=== PATIENT | female | born 1940 | race Caucasian/White ===

== ENCOUNTER 2019-02-03 12:54 | Emergency (ER) | payer OTHER, MEDICARE ==
[2019-02-03 14:59] LABS: Absolute Lymphocytes (CBC) 0.7 K/uL (0.7-4.9); Absolute Monocytes 1.1 K/uL (0.1-1.3); Absolute Neutrophil 13.9 K/uL (1.8-8.0); Basophils % 0.5 % (0-1.3); Eosinophils % 0.9 % (0-4.4); Hematocrit 39.2 % (36.0-45.0); Lymphocytes % 4.5 % (15.3-44.8); MPV 10.3 fL (7.6-11.3); Monocytes % 7.1 % (3.3-12.3); RBC Red Blood Cell Count 4.37 M/uL (3.86-4.86)
[2019-02-03 15:18] LABS: Albumin 3.5 g/dL (3.4-5.0); Bilirubin Direct 0.2 mg/dL (0-0.2); Bilirubin Total 0.7 mg/dL (0.2-1.0); Potassium 3.9 mmol/L (3.5-5.1)
[2019-02-03 15:22] LABS: Blood Morphology Comment NOT SEEN (NOT SEEN); Platelet Estimate ADEQ; Urine White Blood Cell Casts OK
[2019-02-03] MEDS ORDERED: CIPROFLOXACIN HCL 500 MG TAB ONE (15:44)
[2019-02-03] MEDS ORDERED: ONDANSETRON 4 MG/2 ML VIAL ONE (15:44)
[2019-02-03] MEDS ORDERED: metroNIDAZOLE 500 MG TABLET ONE (15:44)
--- NOTE | 2019-02-03 16:15 | RAD REPORT ---
EXAM DESCRIPTION: CT - Abdomen Pelvis W Contrast - 02/03/2019 3:56 pm CLINICAL HISTORY: Abdominal pain hematochezia COMPARISON: December 2017 TECHNIQUE: Computed axial tomography of the abdomen pelvis was obtained. 100 cc Isovue-300 was admin istered intravenously. Oral contrast was not requested which limits evaluation of bowel. All CT scans are performed using dose optimization technique as appropriate and may include automated exposure control or mA/KV adjustment according to patient size. FINDINGS: Small left pleural effusion The liver, spleen, adrenal and kidneys appear unremarkable. The pancreas is atrophic. Gallstones without gallbladder wall thickening Postsurgical changes of a sigmoidectomy with left lower quadrant colostomy. The wall of the distal tr ansverse and descending colon is moderately thickened. This extends to the stoma. Mild stranding is s een within the adjacent fat. Pneumatosis intestinalis is not noted. The appendix is normal. Laxity of the anterior abdominal wall. Diverticulosis involves the colon without diverticulitis IMPRESSION: Moderate left colitis
--- NOTE | 2019-02-03 17:07 | EDPHYS ---
Physician Documentation [facility] Name: Maritza Simon Age: 78 yrs Sex: Female : 1940 Arrival Date: 02/03/2019 Time: 12:57 Bed 30 Private MD: James Lew F ED Physician Ho Glasgow HPI: 02/03 17:01 This 78 yrs old Female presents to ER via Wheelchair with complaints of kdr Diarrhea, Bloody Stools. 17:01 The patient presents to the emergency department with nausea, that is mild, diarrhea, kdr that is intermittent, 3 times today, abdominal pain, of the abdomen diffusely, described as achy, crampy, and does not radiate. Onset: The symptoms/episode began/occurred suddenly, this morning. Possible causes: unknown, antibiotics. The symptoms are aggravated by nothing. The symptoms are alleviated by nothing. Associated signs and symptoms: Pertinent positives: abdominal pain, diarrhea, nausea. Severity of symptoms: At their worst the symptoms were mild moderate just prior to arrival, in the emergency department the symptoms are unchanged. The patient has not experienced similar symptoms in the past. The patient has not recently seen a physician. Historical: - Allergies: 13:16 NKA; hb - Home Meds: 14:53 Advair Diskus 250-50 mcg/dose Inhl dsdv 1 puff 2 times per day [Active]; amitriptyline mg2 25 mg Oral tab 1 tab once daily [Active]; atenolol 25 mg Oral tab 1 tab 2 times per day [Active]; azithromycin 500 mg Oral tab 1 tab once daily [Active]; calcium 600 mg daily [Active]; cetirizine 10 mg Oral tab [Active]; fluoxetine 20 mg Oral cap 1 cap once daily [Active]; furosemide 40 mg Oral tab 1 tab once daily [Active]; Maalox Plus Extra Strength Oral [Active]; multivitamin Oral cap daily [Active]; omeprazole 20 mg Oral cpDR 2 caps 2 times per day [Active]; ProAir HFA 90 mcg/actuation inhalation HFAA as needed [Active]; rifampin 300 mg Oral cap 2 caps 2 times per day [Active]; simvastatin 10 mg Oral tab 1 tab once daily [Active]; Spiriva with HandiHaler 18 mcg inhalation CpDv 1 cap once daily [Active]; spironolactone 25 mg Oral tab 1 tab once daily [Active]; tramadol 50 mg Oral tab 1 tab every 6 hours [Active]; Zofran (as hydrochloride) 4 mg Oral tab 1 tabs every 6 hours [Active]; - PMHx: 14:53 BOWEL PERFORATION; CHF; chronic uti; COPD; GALLSTONES; GERD; Hyperlipidemia; mg2 Hypertension; - PSHx: 14:53 Colostomy; mg2 - Immunization history:: Adult Immunizations up to date. - Social history:: Smoking status: Patient/guardian denies using tobacco. - Ebola Screening: : No symptoms or risks identified at this time. ROS: 17:01 Constitutional: Negative for fever, chills, and weight loss, Eyes: Negative for injury, kdr pain, redness, and discharge, ENT: Negative for injury, pain, and discharge, Neck: Negative for injury, pain, and swelling, Cardiovascular: Negative for chest pain, palpitations, and edema, Respiratory: Negative for shortness of breath, cough, wheezing, and pleuritic chest pain, Back: Negative for injury and pain, : Negative for injury, bleeding, discharge, and swelling, MS/Extremity: Negative for injury and deformity, Skin: Negative for injury, rash, and discoloration, Neuro: Negative for headache, weakness, numbness, tingling, and seizure activity. Psych: Negative for depression, anxiety, suicide ideation, homicidal ideation, and hallucinations, Allergy/Immunology: Negative for hives, rash, and allergies, Endocrine: Negative for neck swelling, polydipsia, polyuria, polyphagia, and marked weight changes, Hematologic/Lymphatic: Negative for swollen nodes, abnormal bleeding, and unusual bruising. 17:01 Abdomen/GI: Positive for abdominal pain, diarrhea, abdominal cramps, rectal bleeding. Exam: 17:01 Constitutional: This is a well developed, well nourished patient who is awake, alert, kdr and in no acute distress. Head/Face: Normocephalic, atraumatic. Eyes: Pupils equal round and reactive to light, extra-ocular motions intact. Lids and lashes normal. Conjunctiva and sclera are non-icteric and not injected. Cornea within normal limits. Periorbital areas with no swelling, redness, or edema. Neck: Trachea midline, no thyromegaly or masses palpated, and no cervical lymphadenopathy. Supple, full range of motion without nuchal rigidity, or vertebral point tenderness. No Meningismus. Chest/axilla: Normal chest wall appearance and motion. Nontender with no deformity. No lesions are appreciated. Cardiovascular: Regular rate and rhythm with a normal S1 and S2. No gallops, murmurs, or rubs. Normal PMI, no JVD. No pulse deficits. Respiratory: Lungs have equal breath sounds bilaterally, clear to auscultation and percussion. No rales, rhonchi or wheezes noted. No increased work of breathing, no retractions or nasal flaring. Back: No spinal tenderness. No costovertebral tenderness. Full range of motion. Skin: Warm, dry with normal turgor. Normal color with no rashes, no lesions, and no evidence of cellulitis. MS/ Extremity: Pulses equal, no cyanosis. Neurovascular intact. Full, normal range of motion. Neuro: Awake and alert, GCS 15, oriented to person, place, time, and situation. Cranial nerves II-XII grossly intact. Motor strength 5/5 in all extremities. Sensory grossly intact. Cerebellar exam normal. Normal gait. Psych: Awake, alert, with orientation to person, place and time. Behavior, mood, and affect are within normal limits. 17:01 Abdomen/GI: Rectal exam: Stool: Stoma Exam appears normal with some mildly bloody drainage. Vital Signs: 13:15 BP 116 / 68; Pulse 88; Resp 18; Temp 97.2; Pulse Ox 99% on 2 lpm NC; Pain 0/10; hb 14:28 BP 109 / 58; Pulse 74; Resp 18; Pulse Ox 98% on 2 lpm NC; tl3 14:54 BP 123 / 65; Pulse 64; Resp 18; Pulse Ox 100% on 2 lpm NC; mg2 17:45 BP 129 / 78; Pulse 70; Resp 18; Pulse Ox 100% on 2 lpm NC; Pain 0/10; mg2 MDM: 17:01 Data reviewed: vital signs, nurses notes, lab test result(s), radiologic studies. kdr Counseling: I had a detailed discussion with the patient and/or guardian regarding: the historical points, exam findings, and any diagnostic results supporting the discharge/admit diagnosis, lab results, radiology results, the need for outpatient follow up. 17:06 Patient medically screened. [facility] 02/03 14:26 Order name: Basic Metabolic Panel [facility] 02/03 14:26 Order name: CBC with Diff; Complete Time: 15:23 kdr 02/03 14:26 Order name: Creatinine for Radiology; Complete Time: 16:57 kdr 02/03 14:26 Order name: Hepatic Function; Complete Time: 15:23 kdr 02/03 14:26 Order name: Lipase; Complete Time: 15:23 kdr 02/03 14:27 Order name: Basic Metabolic Panel; Complete Time: 15:23 EDAL 02/03 15:03 Order name: CBC Smear Scan; Complete Time: 15:23 EDMS 02/03 15:23 Order name: CT Abd/Pelvis - W/Contrast; Complete Time: 16:57 kdr 02/03 15:25 Order name: Stool Culture [facility] 02/03 15:25 Order name: Ova And Parasites kdr 02/03 15:25 Order name: Fecal Leukocyte Stain kdr 02/03 15:25 Order name: CDIFF kdr 02/03 14:26 Order name: IV Saline Lock; Complete Time: 14:48 [facility] 02/03 14:26 Order name: Labs collected and sent; Complete Time: 14:48 kdr Administered Medications: 15:41 Drug: Flagyl 500 mg Route: PO; mg2 17:48 Follow up: Response: No adverse reaction mg2 15:41 Drug: Cipro 500 mg Route: PO; mg2 17:49 Follow up: Response: No adverse reaction mg2 15:41 Drug: Zofran 4 mg Route: IVP; Site: right forearm; mg2 17:48 Follow up: Response: No adverse reaction; Marked relief of symptoms mg2 17:48 Follow up: Response: No adverse reaction mg2 Disposition: 02/03/19 17:06 Discharged to Home. Impression: Left sided colitis, Left sided colitis without complications. - Condition is Stable. - Discharge Instructions: Colitis. - Prescriptions for Flagyl 500 mg Oral Tablet - take 1 tablet by ORAL route every 6 hours for 10 days; 40 tablet. Zofran 4 mg Oral Tablet - take 1 tablet by ORAL route every 12 hours As needed; 20 tablet. Cipro 500 mg Oral Tablet - take 1 tablet by ORAL route every 12 hours for 10 days; 20 tablet. Pepcid 20 mg Oral Tablet - take 1 tablet by ORAL route every 12 hours for 10 days; 20 tablet. - Medication Reconciliation Form, Thank You Letter, Antibiotic Education, Prescription Opioid Use form. - Follow up: James Lew MD; When: 2 - 3 days; Reason: If symptoms return, Further diagnostic work-up, Recheck today's complaints, Continuance of care, Re-evaluation by your physician. Signatures: Dispatcher [employer] EDAL Ho Glasgow MD MD [facility] Denisse Loyd RN RN Jose Ramirez RN RN mg2 Corrections: (The following items were deleted from the chart) 17:50 17:06 02/03/2019 17:06 Discharged to Home. Impression: Left sided colitis; Left sided mg2 colitis without complications. Condition is Stable. Forms are Medication Reconciliation Form, Thank You Letter, Antibiotic Education, Prescription Opioid Use. Follow up: James Lew; When: 2 - 3 days; Reason: If symptoms return, Further diagnostic work-up, Recheck today's complaints, Continuance of care, Re-evaluation by your physician. kdr
--- NOTE | 2019-02-03 17:07 | ER ---
Nurse's Notes [facility] Name: Maritza Simon Age: 78 yrs Sex: Female : 1940 Arrival Date: 02/03/2019 Time: 12:57 Bed 30 Private MD: James Lew F Diagnosis: Left sided colitis;Left sided colitis without complications Presentation: 02/03 13:15 Presenting complaint: Upper abdominal pain, nausea, and bloody diarrhea in colostomy hb bag since this morning. Transition of care: patient was not received from another setting of care. Onset of symptoms was February 03, 2019. Risk Assessment: Do you want to hurt yourself or someone else? Patient reports no desire to harm self or others. Care prior to arrival: None. 13:15 Method Of Arrival: Wheelchair hb 13:15 Acuity: TRACY 3 hb 14:54 Initial Sepsis Screen: Does the patient meet any 2 criteria? No. Patient's initial mg2 sepsis screen is negative. Does the patient have a suspected source of infection? No. Patient's initial sepsis screen is negative. Historical: - Allergies: 13:16 NKA; hb - Home Meds: 14:53 Advair Diskus 250-50 mcg/dose Inhl dsdv 1 puff 2 times per day [Active]; amitriptyline mg2 25 mg Oral tab 1 tab once daily [Active]; atenolol 25 mg Oral tab 1 tab 2 times per day [Active]; azithromycin 500 mg Oral tab 1 tab once daily [Active]; calcium 600 mg daily [Active]; cetirizine 10 mg Oral tab [Active]; fluoxetine 20 mg Oral cap 1 cap once daily [Active]; furosemide 40 mg Oral tab 1 tab once daily [Active]; Maalox Plus Extra Strength Oral [Active]; multivitamin Oral cap daily [Active]; omeprazole 20 mg Oral cpDR 2 caps 2 times per day [Active]; ProAir HFA 90 mcg/actuation inhalation HFAA as needed [Active]; rifampin 300 mg Oral cap 2 caps 2 times per day [Active]; simvastatin 10 mg Oral tab 1 tab once daily [Active]; Spiriva with HandiHaler 18 mcg inhalation CpDv 1 cap once daily [Active]; spironolactone 25 mg Oral tab 1 tab once daily [Active]; tramadol 50 mg Oral tab 1 tab every 6 hours [Active]; Zofran (as hydrochloride) 4 mg Oral tab 1 tabs every 6 hours [Active]; - PMHx: 14:53 BOWEL PERFORATION; CHF; chronic uti; COPD; GALLSTONES; GERD; Hyperlipidemia; mg2 Hypertension; - PSHx: 14:53 Colostomy; mg2 - Immunization history:: Adult Immunizations up to date. - Social history:: Smoking status: Patient/guardian denies using tobacco. - Ebola Screening: : No symptoms or risks identified at this time. Screenin:28 Abuse screen: Denies threats or abuse. Nutritional screening: No deficits noted. tl3 Tuberculosis screening: No symptoms or risk factors identified. Fall Risk None identified. Assessment: 14:28 General: Appears in no apparent distress. well groomed, well developed, well nourished, tl3 Behavior is calm, cooperative, appropriate for age. Pain: Complains of pain in abdomen Quality of pain is described as crampy. Neuro: No deficits noted. Level of Consciousness is awake, alert, obeys commands, Oriented to person, place, time, situation, Appropriate for age. Cardiovascular: Patient's skin is warm and dry. Respiratory: Airway is patent Respiratory effort is even, unlabored, Respiratory pattern is regular, symmetrical. GI: Reports diarrhea, stool has become watery with blood tinges. Pt has colostomy and stool was normal yesterday. : No signs and/or symptoms were reported regarding the genitourinary system. EENT: No signs and/or symptoms were reported regarding the EENT system. Derm: No signs and/or symptoms reported regarding the dermatologic system. Musculoskeletal: No signs and/or symptoms reported regarding the musculoskeletal system. 14:28 Respiratory: pt on home O2 at 2 LPM per NC. tl3 17:48 Reassessment: Patient states feeling better. mg2 Vital Signs: 13:15 BP 116 / 68; Pulse 88; Resp 18; Temp 97.2; Pulse Ox 99% on 2 lpm NC; Pain 0/10; hb 14:28 BP 109 / 58; Pulse 74; Resp 18; Pulse Ox 98% on 2 lpm NC; tl3 14:54 BP 123 / 65; Pulse 64; Resp 18; Pulse Ox 100% on 2 lpm NC; mg2 17:45 BP 129 / 78; Pulse 70; Resp 18; Pulse Ox 100% on 2 lpm NC; Pain 0/10; mg2 ED Course: 12:57 Patient arrived in ED. rg4 12:57 James Lew MD is Private Physician. rg4 13:15 Triage completed. hb 13:16 Arm band placed on. hb 14:26 Ho Glasgow MD is Attending Physician. kdr 14:27 Benita Cunningham, RN is Primary Nurse. tl3 14:28 Patient has correct armband on for positive identification. Bed in low position. Call tl3 light in reach. Side rails up X 1. Adult w/ patient. Pulse ox on. NIBP on. 14:28 No provider procedures requiring assistance completed. tl3 14:50 Inserted saline lock: 20 gauge in right forearm, using aseptic technique. Blood mg2 collected. 15:47 CT completed. Patient tolerated procedure well. Patient moved to CT via stretcher. Patient moved back from CT. 16:06 CT Abd/Pelvis - W/Contrast In Process Unspecified. EDMS 17:05 James Lew MD is Referral Physician. kdr 17:50 IV discontinued, intact, bleeding controlled, No redness/swelling at site. Pressure mg2 dressing applied. Administered Medications: 15:41 Drug: Flagyl 500 mg Route: PO; mg2 17:48 Follow up: Response: No adverse reaction mg2 15:41 Drug: Cipro 500 mg Route: PO; mg2 17:49 Follow up: Response: No adverse reaction mg2 15:41 Drug: Zofran 4 mg Route: IVP; Site: right forearm; mg2 17:48 Follow up: Response: No adverse reaction; Marked relief of symptoms mg2 17:48 Follow up: Response: No adverse reaction mg2 Outcome: 17:06 Discharge ordered by . kdr 17:49 Discharged to home via wheelchair, with family. mg2 17:49 Condition: stable 17:49 Discharge instructions given to patient, family, Instructed on discharge instructions, follow up and referral plans. medication usage, Demonstrated understanding of instructions, follow-up care, medications, Prescriptions given X 4. 17:50 Patient left the ED. mg2 Signatures: Dispatcher [employer] EDMS Ho Glasgow MD MD kdr Deepa Velásquez Denisse Loyd RN RN Anastasia Tavarez rg4 Benita Cunningham, TRANG COSTELLO tl3 Gardose, Jose, RN RN mg2 Corrections: (The following items were deleted from the chart) 17:50 14:54 BP 123 / 65; Pulse 64bpm; Resp 18bpm; Pulse Ox 100% RA; mg2 mg2
[2019-02-03 19:04] VITALS: TEMP 97.2
[2019-02-03 19:07] VITALS: O2SAT 100
[2019-02-03 19:08] VITALS: BP 129/78
== END 2019-02-03 17:50 | disposition home or self-care (01) ==
LOC: ER 12:54
DX: K51.50 Left sided colitis without complications (principal); I10 Essential (primary) hypertension; E78.5 Hyperlipidemia, unspecified; I50.9 Heart failure, unspecified; J44.9 Chronic obstructive pulmonary disease, unspecified
CPT/HCPCS: 87045; 85025; 80048; 36415; 89055; 87177; 80076; 87046; 87493; 87209; 83690; 74177; 96374; 99284; Q9967; J2405

== ENCOUNTER 2019-03-02 15:36 | Inpatient (IN) | payer OTHER, MEDICARE ==
[2019-03-02] MEDS ORDERED: METHYLPREDNISOLONE 125 MG INJ ONE (15:48)
[2019-03-02] MEDS ORDERED: IPRATROPIUM BROM 0.5MG/2.5ML ONE (15:49)
[2019-03-02] MEDS ORDERED: ALBUTEROL 2.5 MG/3 ML NEB SOL ONE (15:49)
[2019-03-02 16:10] LABS: Arterial Blood Carboxyhemoglob 0.7 % (0-1.5); Blood Gas Oxyhemoglobin 97.4 % (94-97); Blood O2 Saturation 99.2 % (92-98.5)
--- NOTE | 2019-03-02 16:15 | RAD REPORT ---
EXAM DESCRIPTION: [place] Single View03/02/2019 3:55 pm CLINICAL HISTORY: sob COMPARISON: 02/03/2019 FINDINGS: Mild bilateral pulmonary opacities. Mild left lower lobe atelectasis Small left pleural effusion Moderate cardiomegaly IMPRESSION: These findings probably represent CHF
[2019-03-02 16:16] LABS: Absolute Lymphocytes (CBC) 0.5 K/uL (0.7-4.9); Absolute Monocytes 0.3 K/uL (0.1-1.3); Absolute Neutrophil 9.1 K/uL (1.8-8.0); Basophils % 0.2 % (0-1.3); Eosinophils % 0.1 % (0-4.4); Hematocrit 40.4 % (36.0-45.0); Lymphocytes % 5.3 % (15.3-44.8); MPV 11.1 fL (7.6-11.3); Monocytes % 3.2 % (3.3-12.3); RBC Red Blood Cell Count 4.47 M/uL (3.86-4.86)
[2019-03-02 16:20] LABS: Protime INR 0.99
[2019-03-02 16:32] LABS: Albumin 3.6 g/dL (3.4-5.0); Bilirubin Direct 0.1 mg/dL (0-0.2); Bilirubin Total 0.4 mg/dL (0.2-1.0); Potassium 4.2 mmol/L (3.5-5.1); Troponin (Emerg Dept Use Only) 0.02 ng/mL (0.0-0.045)
[2019-03-02] MEDS ORDERED: FUROSEMIDE 20 MG/ 2ML VIAL ONE (16:45)
--- NOTE | 2019-03-02 16:55 | ER ---
Nurse's Notes [facility] Name: Maritza Simon Age: 78 yrs Sex: Female : 1940 Arrival Date: 03/02/2019 Time: 15:43 Bed 16 Private MD: Diagnosis: Acute respiratory failure;Acute systolic (congestive) heart failure Presentation: 03/02 15:45 Presenting complaint: EMS states: from home, complaining of difficulty breathing, uses hj O2 at home at 4L/min satting at 92\T\; pt was placed on RA within 40 sec desatt to 84%; placed on NRB- O2 sat went up to 96-97%;BP- 179/82; HR- 94; T-97.9; was diagnosed with UTI a day ago;. Transition of care: patient was not received from another setting of care. Onset of symptoms was March 02, 2019. Risk Assessment: Do you want to hurt yourself or someone else? Patient reports no desire to harm self or others. Initial Sepsis Screen: Does the patient meet any 2 criteria? Yes Does the patient have a suspected source of infection? Yes: Productive cough/pneumonia. Care prior to arrival: None. 15:45 Method Of Arrival: EMS: [facility] 15:45 Acuity: TRACY 2 hj 15:48 Acuity: TRACY 2 iw Triage Assessment: 15:51 General: Appears in no apparent distress. uncomfortable, Behavior is cooperative, hj appropriate for age, anxious. Respiratory: Reports shortness of breath labored breathing Onset: The symptoms/episode began/occurred the patient has severe shortness of breath. Historical: - Allergies: 15:50 NKA; hj - PMHx: 15:50 BOWEL PERFORATION; CHF; chronic uti; COPD; GALLSTONES; GERD; Hyperlipidemia; hj Hypertension; - PSHx: 15:50 Colostomy; hj - Immunization history:: Adult Immunizations up to date. - Social history:: Smoking status: Patient/guardian denies using tobacco, Patient/guardian denies using alcohol. - Ebola Screening: : Patient negative for fever greater than or equal to 101.5 degrees Fahrenheit, and additional compatible Ebola Virus Disease symptoms Patient denies exposure to infectious person Patient denies travel to an Ebola-affected area in the 21 days before illness onset. Screenin:50 Abuse screen: Denies threats or abuse. Denies injuries from another. Nutritional hj screening: No deficits noted. Tuberculosis screening: No symptoms or risk factors identified. Fall Risk None identified. Assessment: 15:50 Pain: Denies pain. Cardiovascular: Rhythm is regular. Respiratory: Airway is hj compromised Respiratory effort is labored, gasping, Respiratory pattern is regular, tachypnea Breath sounds are diminished. 15:50 General: Appears in no apparent distress. uncomfortable, Behavior is cooperative, hj appropriate for age, anxious. Neuro: Level of Consciousness is awake, alert, obeys commands, Oriented to person, place, time, situation, Appropriate for age. GI: No signs and/or symptoms were reported involving the gastrointestinal system. : No signs and/or symptoms were reported regarding the genitourinary system. EENT: No signs and/or symptoms were reported regarding the EENT system. Derm: No signs and/or symptoms reported regarding the dermatologic system. Musculoskeletal: No signs and/or symptoms reported regarding the musculoskeletal system. 16:45 Reassessment: Patient and/or family updated on plan of care and expected duration. Pain hj level reassessed. Patient is alert, oriented x 3, equal unlabored respirations, skin warm/dry/pink. Patient states feeling better. Patient states symptoms have improved. 17:45 Reassessment: Patient and/or family updated on plan of care and expected duration. Pain hj level reassessed. Patient is alert, oriented x 3, equal unlabored respirations, skin warm/dry/pink. Patient states feeling better. Patient states symptoms have improved. 18:17 Reassessment: Patient and/or family updated on plan of care and expected duration. Pain hj level reassessed. Patient is alert, oriented x 3, equal unlabored respirations, skin warm/dry/pink. Patient states feeling better. Patient states symptoms have improved. Vital Signs: 15:48 BP 120 / 67; Pulse 92; Resp 28; Temp 99.3(A); Pulse Ox 100% on BiPAP; Weight 113.4 kg; hj Height 5 ft. 6 in. (167.64 cm); 17:08 BP 120 / 87; Pulse 89; Resp 18; Pulse Ox 100% on BiPAP; hj 18:24 BP 158 / 92; Pulse 87; Resp 18; Pulse Ox 100% on BiPAP; hj 15:48 Body Mass Index 40.35 (113.40 kg, 167.64 cm) hj ED Course: 15:43 Patient arrived in ED. iw 15:45 Ady Cortez PA is PHCP. jr8 15:45 Luis Ramey MD is Attending Physician. jr8 15:45 Aries Salcedo, RN is Primary Nurse. hj 15:48 Triage completed. iw 15:51 Arm band placed on right wrist. hj 15:51 Patient has correct armband on for positive identification. Placed in gown. Bed in low hj position. Call light in reach. Side rails up X 1. 15:56 Chest Single View XRAY In Process Unspecified. EDMS 16:10 Initial lab(s) drawn, by me, sent to lab. Inserted saline lock: 20 gauge in right hj antecubital area, using aseptic technique. Blood collected. 16:10 Inserted saline lock: 24 gauge in left wrist, using aseptic technique. hj 16:11 EKG done, by tube test technician. reviewed by Ady ESCALANTE. 3 16:45 Puente cath inserted, using sterile technique, 16 Fr., by ky, balloon inflated, to gravity drainage, urine specimen collected. 16:54 James Lew MD is Hospitalizing Provider. jr8 17:13 XRAY Abdomen 1 View (KUB) In Process Unspecified. EDMS 18:22 No provider procedures requiring assistance completed. Patient admitted, IV remains in hj place. intact. Administered Medications: 15:46 Drug: SOLU-Medrol 125 mg Route: IVP; Site: right antecubital; hj 16:12 Follow up: Response: No adverse reaction hj 15:46 Drug: Albuterol - atroVENT (3:1) (2.5 mg - 0.5 mg) 3 ml Route: Nebulizer; hj 16:12 Follow up: Response: No adverse reaction hj 17:00 Drug: Lasix 60 mg Route: IVP; Site: right antecubital; hj 17:00 Follow up: Response: No adverse reaction hj 17:55 Drug: Rocephin 1 grams Route: IV; Rate: calculated rate; Site: right antecubital; hj 18:16 Follow up: IV Status: Completed infusion Point of Care Testing: Blood Glucose: 16:08 Blood Glucose: 136 mg/dL; pc1 Ranges: Outcome: 16:54 Decision to Hospitalize by Provider. jr8 18:23 Attestation : i agree with the notes of [place] E[facility]OL[facility]. 18:23 Admitted to Tele accompanied by tech, family with patient, via stretcher, room 411, with chart, Report called to TRANG Luque 18:23 Condition: stable 18:23 Instructed on the need for admit, Demonstrated understanding of instructions. 18:51 Patient left the ED. jl7 Signatures: Dispatcher [employer] Serene Tidwell, RN Ady Cox PA PA jr8 Aries Salcedo RN RN hj Leal, Jahala, RN RN jl7 Amaya Seo 3 [place] pc1 Corrections: (The following items were deleted from the chart) 15:52 15:48 BP 120 / 67; Pulse 92bpm; Resp 28bpm; Pulse Ox 92% Nebulizer Mask; Temp 99.3F hj Axillary; 113.4 kg; Height 5 ft. 6 in.; BMI: 40.3; hj
--- NOTE | 2019-03-02 16:56 | EDPHYS ---
Physician Documentation [facility] Name: Maritza Simon Age: 78 yrs Sex: Female : 1940 Arrival Date: 03/02/2019 Time: 15:43 Bed 16 Private MD: ED Physician Luis Ramey HPI: 03/02 16:45 This 78 yrs old Female presents to ER via EMS with complaints of Breathing jr8 Difficulty. 16:45 The patient has shortness of breath at rest. Onset: The symptoms/episode began/occurred jr8 acutely, today. Duration: The symptoms are continuous. The patient's shortness of breath is aggravated by talking, walking. Associated signs and symptoms: The patient has no apparent associated signs or symptoms. Severity of symptoms: At their worst the symptoms were moderate in the emergency department the symptoms are unchanged. It is unknown whether or not the patient has had similar symptoms in the past. The patient has been recently seen by a physician:. Patient stated that she went to her sales negotiator yesterday because her home health nurse heard some crackling in her lungs. Copy Machine Operator had ordered nebulizer machine for at home but has not been able to get it as of today. Stated that she acute got worse today and called EMS. Patient 84% RA upon EMS arrival. Was put on NRB and brought to ED. Patient tachypneic with short word phrases and in moderate distress upon arrival . Historical: - Allergies: 15:50 NKA; hj - PMHx: 15:50 BOWEL PERFORATION; CHF; chronic uti; COPD; GALLSTONES; GERD; Hyperlipidemia; hj Hypertension; - PSHx: 15:50 Colostomy; hj - Immunization history:: Adult Immunizations up to date. - Social history:: Smoking status: Patient/guardian denies using tobacco, Patient/guardian denies using alcohol. - Ebola Screening: : Patient negative for fever greater than or equal to 101.5 degrees Fahrenheit, and additional compatible Ebola Virus Disease symptoms Patient denies exposure to infectious person Patient denies travel to an Ebola-affected area in the 21 days before illness onset. ROS: 16:52 Eyes: Negative for injury, pain, redness, and discharge, ENT: Negative for injury, jr8 pain, and discharge, Neck: Negative for injury, pain, and swelling, Cardiovascular: Negative for chest pain, palpitations, and edema, Abdomen/GI: Negative for abdominal pain, nausea, vomiting, diarrhea, and constipation, Back: Negative for injury and pain, MS/Extremity: Negative for injury and deformity, Skin: Negative for injury, rash, and discoloration, Neuro: Negative for headache, weakness, numbness, tingling, and seizure. 16:52 Respiratory: Positive for dyspnea on exertion, orthopnea, shortness of breath, wheezing. Exam: 16:52 Eyes: Pupils equal round and reactive to light, extra-ocular motions intact. Lids and jr8 lashes normal. Conjunctiva and sclera are non-icteric and not injected. Cornea within normal limits. Periorbital areas with no swelling, redness, or edema. ENT: Nares patent. No nasal discharge, no septal abnormalities noted. Tympanic membranes are normal and external auditory canals are clear. Oropharynx with no redness, swelling, or masses, exudates, or evidence of obstruction, uvula midline. Mucous membranes moist. Neck: Trachea midline, no thyromegaly or masses palpated, and no cervical lymphadenopathy. Supple, full range of motion without nuchal rigidity, or vertebral point tenderness. No Meningismus. Abdomen/GI: Soft, non-tender, with normal bowel sounds. No distension or tympany. No guarding or rebound. No evidence of tenderness throughout. Back: No spinal tenderness. No costovertebral tenderness. Full range of motion. Skin: Warm, dry with normal turgor. Normal color with no rashes, no lesions, and no evidence of cellulitis. MS/ Extremity: Pulses equal, no cyanosis. Neurovascular intact. Full, normal range of motion. Neuro: Awake and alert, GCS 15, oriented to person, place, time, and situation. Cranial nerves II-XII grossly intact. Motor strength 5/5 in all extremities. Sensory grossly intact. Cerebellar exam normal. Normal gait. 16:52 Cardiovascular: Rate: normal, Rhythm: regular, Pulses: Pulses are 2+ in right radial artery and left radial artery. Heart sounds: normal, normal S1and S2, no S3 or S4, no murmur, no rub, no gallop, Edema: 1+ edema to level of left midcalf, left ankle, left foot, right midcalf, right ankle and right foot. 16:52 Respiratory: moderate respiratory distress is noted, Respirations: labored breathing, tachypnea, Breath sounds: rales, that are mild, are located in both bases, wheezing: expiratory that is mild, is heard diffusely. Vital Signs: 15:48 BP 120 / 67; Pulse 92; Resp 28; Temp 99.3(A); Pulse Ox 100% on BiPAP; Weight 113.4 kg; hj Height 5 ft. 6 in. (167.64 cm); 17:08 BP 120 / 87; Pulse 89; Resp 18; Pulse Ox 100% on BiPAP; hj 18:24 BP 158 / 92; Pulse 87; Resp 18; Pulse Ox 100% on BiPAP; hj 15:48 Body Mass Index 40.35 (113.40 kg, 167.64 cm) hj MDM: 15:45 Patient medically screened. jr8 16:53 Data reviewed: vital signs, nurses notes, lab test result(s), EKG, radiologic studies, [facility] plain films. Data interpreted: Pulse oximetry: on room air is 100 %. Interpretation: normal. Counseling: I had a detailed discussion with the patient and/or guardian regarding: the historical points, exam findings, and any diagnostic results supporting the discharge/admit diagnosis, lab results, radiology results, the need for further work-up and treatment in the hospital. ED course: Called and left message for Dr. Lew to call us back for admission . 03/02 15:46 Order name: ABG; Complete Time: 16:26 [facility] 03/02 15:46 Order name: Basic Metabolic Panel [facility] 03/02 15:46 Order name: Blood Culture Adult (2) [facility] 03/02 15:46 Order name: CBC with Diff [facility] 03/02 15:46 Order name: Lactate; Complete Time: 16:26 [facility] 03/02 15:46 Order name: LFT's; Complete Time: 16:42 [facility] 03/02 15:46 Order name: Lipase; Complete Time: 16:42 [facility] 03/02 15:46 Order name: Procalcitonin; Complete Time: 16:52 [facility] 03/02 15:46 Order name: Protime (+inr); Complete Time: 16:26 [facility] 03/02 15:46 Order name: Ptt, Activated; Complete Time: 16:26 [facility] 03/02 15:46 Order name: Troponin (emerg Dept Use Only); Complete Time: 16:42 [facility] 03/02 15:46 Order name: Urine Microscopic Only; Complete Time: 17:54 [facility] 03/02 15:47 Order name: Basic Metabolic Panel; Complete Time: 16:42 [facility] 03/02 15:47 Order name: Blood Culture [facility] 03/02 15:46 Order name: Chest Single View XRAY; Complete Time: 16:26 [facility] 03/02 15:46 Order name: Accucheck; Complete Time: 15:59 [facility] 03/02 15:46 Order name: Cardiac monitoring; Complete Time: 15:53 [facility] 03/02 15:46 Order name: EKG - Nurse/Tech; Complete Time: 16:12 [facility] 03/02 15:46 Order name: IV Saline Lock - Large Bore; Complete Time: 15:53 [facility] 03/02 15:46 Order name: Labs collected and sent; Complete Time: 15:53 [facility] 03/02 15:46 Order name: BIPAP [facility] 03/02 15:47 Order name: CBC with Automated Diff; Complete Time: 16:42 [facility] 03/02 16:43 Order name: BNP [facility] 03/02 16:45 Order name: XRAY Abdomen 1 View (KUB); Complete Time: 17:23 [facility] 03/02 17:11 Order name: Urine Dipstick--Ancillary (enter results); Complete Time: 17:47 03/02 17:21 Order name: CONS Physician Consult [facility] 03/02 15:46 Order name: O2 Per Protocol; Complete Time: 15:53 [facility] 03/02 15:46 Order name: O2 Sat Monitoring; Complete Time: 15:53 [facility] 03/02 15:46 Order name: Urine Dipstick-Ancillary (obtain specimen); Complete Time: 17:14 [facility] 03/02 16:12 Order name: EKG - Nurse/Tech; Complete Time: 16:12 hj Administered Medications: 15:46 Drug: SOLU-Medrol 125 mg Route: IVP; Site: right antecubital; hj 16:12 Follow up: Response: No adverse reaction hj 15:46 Drug: Albuterol - atroVENT (3:1) (2.5 mg - 0.5 mg) 3 ml Route: Nebulizer; hj 16:12 Follow up: Response: No adverse reaction hj 17:00 Drug: Lasix 60 mg Route: IVP; Site: right antecubital; 17:00 Follow up: Response: No adverse reaction 17:55 Drug: Rocephin 1 grams Route: IV; Rate: calculated rate; Site: right antecubital; hj 18:16 Follow up: IV Status: Completed infusion Point of Care Testing: Blood Glucose: 16:08 Blood Glucose: 136 mg/dL; pc1 Ranges: Critical Glucose Levels:Adult <50 mg/dl or >400 mg/dl <40 mg/dl or >180 mg/dl Disposition: 19:00 Co-signature as Attending Physician, Luis Ramey MD. rn Disposition: 03/02/19 16:54 Hospitalization ordered by James Lew for Inpatient Admission. Preliminary diagnosis are Acute respiratory failure, Acute systolic (congestive) heart failure. - Bed requested for Telemetry/MedSurg (Inpatient). - Status is Inpatient Admission. jl7 - Condition is Stable. - Problem is new. - Symptoms have improved. UTI on Admission? Yes Signatures: Dispatcher [employer] EDMS Agatha Trinh Roman, MD MD rn Roszak, Josh, PA PA jr8 Aries Salcedo RN RN Ioana Pan RN RN jl7 Corrections: (The following items were deleted from the chart) 17:52 16:54 Hospitalization Ordered by James Lew MD for Inpatient Admission. Preliminary bd diagnosis is Acute respiratory failure; Acute systolic (congestive) heart failure. Bed requested for Telemetry/MedSurg (Inpatient). Status is Inpatient Admission. Condition is Stable. Problem is new. Symptoms have improved. UTI on Admission? No. jr8 17:55 17:52 03/02/2019 16:54 Hospitalization Ordered by James Lew MD for Inpatient jr8 Admission. Preliminary diagnosis is Acute respiratory failure; Acute systolic (congestive) heart failure. Bed requested for Telemetry/MedSurg (Inpatient). Status is Inpatient Admission. Condition is Stable. Problem is new. Symptoms have improved. UTI on Admission? No. bd 18:51 17:55 03/02/2019 16:54 Hospitalization Ordered by James Lew MD for Inpatient jl7 Admission. Preliminary diagnosis is Acute respiratory failure; Acute systolic (congestive) heart failure. Bed requested for Telemetry/MedSurg (Inpatient). Status is Inpatient Admission. Condition is Stable. Problem is new. Symptoms have improved. UTI on Admission? Yes. jr8
--- NOTE | 2019-03-02 17:22 | RAD REPORT ---
EXAM DESCRIPTION: RAD - Abdomen 1 View (KUB) - 03/02/2019 5:13 pm CLINICAL HISTORY: Abdomen pain. Constipation FINDINGS: The bowel gas pattern is unremarkable. Moderate amount of stool is present throughout the colon Left lower quadrant colostomy
[2019-03-02 17:34] LABS: Urine Blood TRACE (NEG); Urine Glucose NEGATIVE (NEG); Urine Protein NEGATIVE (NEG); Urine Specific Gravity 1.015 (1.005-1.030)
[2019-03-02 17:50] LABS: Urine Bacteria >50 /HPF (<20); Urine Culture Reflex Order REFLEXED; Urine RBC <5 /HPF (NONE SEEN)
[2019-03-02] MEDS ORDERED: CEFTRIAXONE/SWI 1gm 1 GM/10 ML SYR ONE (18:23)
[2019-03-02] MEDS ORDERED: IPRATROPIUM BROM 0.5MG/2.5ML NEB PRN (18:45)
[2019-03-02] MEDS ORDERED: ONDANSETRON 4 MG/2 ML VIAL IV PRN (18:45)
[2019-03-02] MEDS ORDERED: ALBUTEROL 2.5 MG/3 ML NEB SOL NEB PRN (18:45)
[2019-03-03 04:35] LABS: Absolute Lymphocytes (CBC) 0.3 K/uL (0.7-4.9); Absolute Monocytes 0.2 K/uL (0.1-1.3); Absolute Neutrophil 5.6 K/uL (1.8-8.0); Basophils % 0.2 % (0-1.3); Hematocrit 35.7 % (36.0-45.0); Lymphocytes % 5.6 % (15.3-44.8); Monocytes % 2.8 % (3.3-12.3); RBC Red Blood Cell Count 4.02 M/uL (3.86-4.86)
[2019-03-03 05:08] LABS: Potassium 4.5 mmol/L (3.5-5.1)
[2019-03-03 05:18] LABS: Blood Morphology Comment NOT SEEN (NOT SEEN); Platelet Estimate ADEQ; Urine White Blood Cell Casts OK
[2019-03-03 06:38] VITALS: BMI 31.5
--- NOTE | 2019-03-03 08:38 | P.CNS ---
Date of Consult: 03/03/19 Chief Complaint: Shortness of breath History of Present Illness: Patient is a pleasant 78-year-old lady well known to me became progressively worse over the past week started my clinic I increase prednisone no relief him here was admitted started on BiPAP Lasix he is doing much better now denies any fever chills cough sputum hemoptysis or chest pain or lower extremity edema Allergies No Known Allergies Allergy (Verified 12/20/17 20:05) Home Medications: Amitriptyline HCl 25 mg PO BEDTIME 08/16/17 Cetirizine HCl [Zyrtec*] 10 mg PO DAILY 08/16/17 Fluoxetine HCl [Prozac*] 1 cap PO DAILY 08/16/17 Fluticasone/Salmeterol [Advair 250-50 Diskus] 1 puff IH BID 08/16/17 Simvastatin 10 mg PO BEDTIME 08/16/17 Tramadol HCl [Ultram] 1 tab PO Q6H PRN 08/16/17 Calcium Carbonate [Calcium] 600 mg PO DAILY 11/22/17 Albuterol Sulfate [Proair Hfa] 1 puff IH Q6H PRN 02/04/18 Atenolol [Tenormin] 25 mg PO BID 02/04/18 Tiotropium [Spiriva Handihaler*] 1 cap IH DAILY 02/04/18 Furosemide [Lasix*] 40 mg PO DAILY #30 tab 02/10/18 Spironolactone 25 mg PO BID #60 tablet 02/10/18 Azelastine/Fluticasone [Dymista Nasal Sadler] 2 spray IH DAILY 03/02/19 Bismuth Subsalicylate [Maalox] 30 ml PO Q6HP PRN 03/02/19 Docusate Sodium 100 mg PO DAILY 03/02/19 Multivit with Iron,Minerals [Spectravite Senior] 1 tab PO DAILY 03/02/19 Omeprazole 20 mg PO BID 03/02/19 Sulfamethoxazole/Trimethoprim [Bactrim Ds Tablet] 1 tab PO BID 03/02/19 predniSONE [Deltasone*] 10 mg PO DAILY 03/02/19 - Past Medical/Surgical History Diabetic: No -: copd -: htn -: hld -: chf -: gerd -: PE -: Depression -: Anxiety -: Chronic UTI -: growth removed from colon -: evangelina knees -: Perforated Colon -: Colostomy -: Gallbladder - Family History Father Medical History: Diabetes, Other (see notes) Notes: pacemaker Sister Medical History: Heart disease Mother Medical History: Hypertension - Social History Smoking Status: Former smoker Alcohol use: No CD- Drugs: No Caffeine use: Yes Place of Residence: Home Review of Systems General: Weakness Respiratory: Shortness of Breath Gastrointestinal: Other (Colostomy not working) Physical Examination Temp Pulse Resp BP Pulse Ox 97.2 F 78 18 138/77 99 03/03/19 08:00 03/03/19 08:00 03/03/19 04:00 03/03/19 08:00 03/03/19 08:00 General: Alert, In no apparent distress, Oriented x3 HEENT: Atraumatic Neck: Supple Respiratory: Clear to auscultation bilaterally Cardiovascular: No edema, Regular rate/rhythm, Normal S1 S2 Laboratory Data (last 24 hrs) 03/02/19 15:45: PT 11.7, INR 0.99, APTT 36.0 03/02/19 15:45: WBC 10.0, Hgb 12.9, Hct 40.4, Plt Count 186 03/02/19 15:45: Sodium 139, Potassium 4.2, BUN 12, Creatinine 1.12, Glucose 148 H, Total Bilirubin 0.4, AST 13 L, ALT 13, Alkaline Phosphatase 67, Lipase 38 L - Problems (1) Respiratory failure Current Visit: Yes Status: Acute Plan: Patient is 78 years of age admitted with respiratory distress acute on chronic respiratory failure she does have COPD underlying diastolic dysfunction compliant with her medication patient deteriorated despite taking higher doses of prednisone chest x-rays clear with cardiomegaly BNP is very elevated no evidence of sepsis rule out thromboembolism repeat 2D echo with Doppler vital signs stable patient on O2 at home Qualifiers: Chronicity: acute on chronic
[2019-03-03] MEDS: ARFORMOTEROL TARTRATE 15 MCG/2 ML VIAL.NEB NEB SCH ×2 (09:00→20:00)
[2019-03-03] MEDS: FUROSEMIDE 20 MG/ 2ML VIAL IV SCH ×2 (10:57→17:34)
--- NOTE | 2019-03-03 10:57 | RAD REPORT ---
EXAM DESCRIPTION: CT - Chest For Pe Angio - 03/03/2019 10:30 am CLINICAL HISTORY: Chest pain. Rule out pulmonary embolism COMPARISON: Chest For Pe Angio dated 02/03/2018 TECHNIQUE: CT angiogram of the pulmonary arteries was performed with MIP. All CT scans are performed using dose optimization technique as appropriate and may include automated exposure control or mA/KV adjustment according to patient size. FINDINGS: No evidence of pulmonary thromboembolism. No acute aortic finding demonstrated. Bilateral mild interstitial pulmonary edema is present. Small bilateral pleural effusions. Cardiomegaly is noted, moderate. No concerning bony finding. IMPRESSION: No evidence of pulmonary thromboembolism. Mild to moderate CHF.
--- NOTE | 2019-03-03 11:25 | ECHO ---
HEIGHT: 5 ft 9 in WEIGHT: 213 lb 9.6 oz DATE OF STUDY: 03/03/[address]: Kevin Reaves MD 2-DIMENSIONAL: YES M.MODE: YES DOPPLER: YES COLOR FLOW: YES TDS: NO PORTABLE: NO DEFINITY: NO BUBBLE STUDY: NO DIAGNOSIS: HISTORY OF CONGESTIVE HEART FAILURE CARDIAC HISTORY: CATHERIZATION: NO SURGERY: NO PROSTHETIC VALVE: NO PACEMAKER: NO MEASUREMENTS (cm) DIASTOLIC (NORMALS) SYSTOLIC (NORMALS) IVSd 1.2 (0.6-1.2) LA Diam (1.9-4.0) LVEF 57% LVIDd 5.4 (3.5-5.7) LVIDs 3.8 (2.0-3.5) %FS 30% LVPWd 1.1 (0.6-1.2) Ao Diam 3.2 (2.0-3.7) 2 DIMENSIONAL ASSESSMENT: RIGHT ATRIUM: NORMAL LEFT ATRIUM: DILATED RIGHT VENTRICLE: NORMAL LEFT VENTRICLE: NORMAL TRICUSPID VALVE: NORMAL MITRAL VALVE: NORMAL PULMONIC VALVE: NORMAL AORTIC VALVE: NORMAL PERICARDIAL EFFUSION: NONE AORTIC ROOT: NORMAL LEFT VENTRICULAR WALL MOTION: NORMAL DOPPLER/COLOR FLOW: MILD AORTIC, MITRAL AND TRICUSPID REGURGITATION. ESTIMATED RIGHT VENTRICULAR SYSTOLIC PRESSURE 38 mmHg. MILD PULMONARY HYPERTENSION. COMMENTS: NORMAL LEFT VENTRICULAR EJECTION FRACTION. DILATED LEFT ATRIUM. MILD AORTIC, MITRAL AND TRICUSPID REGURGITATION. MILD PULMONARY HYPERTENSION. TECHNOLOGIST: Veronica PAREKH
[2019-03-03] MEDS: IPRATROPIUM BROM 0.5MG/2.5ML NEB SCH ×2 (13:46→20:00)
[2019-03-03] MEDS ORDERED: ATORVASTATIN 10 MG TAB PO SCH (21:00)
[2019-03-03] MEDS ORDERED: AMITRIPTYLINE 25 MG TAB PO SCH (21:00)
[2019-03-03] MEDS: AMOX/K CLAV 500 MG TAB PO SCH (21:30)
[2019-03-03] MEDS: ATENOLOL 25 MG TAB PO SCH (21:30)
[2019-03-03] MEDS: PANTOPRAZOLE 40MG TABLET PO SCH (21:31)
--- NOTE | 2019-03-03 21:47 | HP ---
Date of Admission: 03/02/2019 History Of Present Illness: A 78-year-old female with a history of chronic diastolic failure along w ith COPD, started having increased shortness of breath over the past week that has gradually being ge tting worse until she came to emergency room. She was found in acute exacerbation of chronic diastol ic failure, and she was admitted for that. The patient had no chest pain. No nausea, no vomiting, a nd voiced no other complaints. Review of Systems: Respiratory: As above. Cardiovascular: No complaints. Genitourinary: No complaints. Skeletomuscular: No complaints. Gastrointestinal: No complaint. Respiratory: As above. Past Medical History: 1.COPD. 2.Diastolic failure. 3.Hypertension. 4.Hyperlipidemia. 5.Chronic nausea, off and on. 6.Gallbladder stones. No symptoms. Social History: The patient has stopped smoking years ago. No alcohol or drug abuse history. Family History: Noncontributing. Medications: Include albuterol 2 puffs q.6 hours, amitriptyline 25 mg p.o. at bedtime, atenolol 25 m g p.o. b.i.d., Zyrtec 10 mg p.o. daily, Prozac 20 mg p.o., daily, furosemide 40 mg p.o. daily, omepra zole 20 mg p.o. b.i.d., prednisone 10 mg p.o. daily, simvastatin 20 mg p.o. daily, and sodium docusat e p.r.n. for constipation. Allergies: NO KNOWN DRUG ALLERGIES. Physical Examination: Vital Signs: Blood pressure 135/75, pulse 78, temperature 97.2. Heart: Regular rate and rhythm. Chest: Mild bibasilar crackles. Abdomen: Soft, nontender. No hepatosplenomegaly. Bowel sounds normoactive. Extremities: Trace edema bilateral. Peripheral pulses are felt. Neurological examination: Alert, oriented, nonfocal. Grossly intact. Laboratory Data: Chest x-ray showed CHF. Chest CT scan, no evidence of pulmonary embolism. CBC not ed hemoglobin 11.7, hematocrit 35.7, platelets 155. ABGs on 40% O2, pH 7.37, pCO2 51.6, PO2 223. Ch emistry, CO2 36. BNP 13,255. Prolactin less than 0.05. Assessment And Plan: 1.Acute diastolic failure on top of chronic causing the patient to have acute respiratory failure. The patient been admitted, put on IV Lasix, bedrest, salt restriction. 2.Chronic obstructive pulmonary disease. We will put the patient on beta 2 agonist breathing treatm ents, oxygen protocol. 3.We will continue the rest of the patient's home medications. We will expect discharge in a.m. Cherise maher orders for details. LA/MODL Voice ID: [id number]
--- NOTE | 2019-03-03 23:08 | HP ---
Date of Admission: 03/02/2019 Addendum: The patient's urinalysis showed evidence of UTI. We will put the patient on Augmentin 500 mg p.o. b.i.d. MIHAI Voice ID: [id number]
[2019-03-04] MEDS: IPRATROPIUM BROM 0.5MG/2.5ML NEB SCH ×3 (02:00→13:30)
[2019-03-04 06:04] LABS: Potassium 3.9 mmol/L (3.5-5.1)
[2019-03-04 06:05] LABS: Absolute Lymphocytes (CBC) 1.4 K/uL (0.7-4.9); Absolute Monocytes 0.7 K/uL (0.1-1.3); Absolute Neutrophil 4.6 K/uL (1.8-8.0); Basophils % 0.4 % (0-1.3); Eosinophils % 0.9 % (0-4.4); Hematocrit 34.9 % (36.0-45.0); Lymphocytes % 20.5 % (15.3-44.8); MPV 10.9 fL (7.6-11.3); Monocytes % 10.5 % (3.3-12.3); RBC Red Blood Cell Count 3.93 M/uL (3.86-4.86)
[2019-03-04] MEDS ORDERED: CETIRIZINE HCL 5 MG TABLET PO SCH (09:00)
[2019-03-04] MEDS ORDERED: CALCIUM CARBONATE 500 MG TAB PO SCH (09:00)
[2019-03-04] MEDS ORDERED: FLUOXETINE 20 MG CAP PO SCH (09:00)
[2019-03-04] MEDS: ARFORMOTEROL TARTRATE 15 MCG/2 ML VIAL.NEB NEB SCH (09:02)
[2019-03-04] MEDS: ATENOLOL 25 MG TAB PO SCH (09:57)
[2019-03-04] MEDS: PANTOPRAZOLE 40MG TABLET PO SCH (09:59)
[2019-03-04] MEDS: FUROSEMIDE 20 MG/ 2ML VIAL IV SCH (09:59)
[2019-03-04] MEDS: AMOX/K CLAV 500 MG TAB PO SCH (10:39)
[2019-03-04 12:23] VITALS: BP 131/72; TEMP 97.8
--- NOTE | 2019-03-04 13:27 | P.PN ---
Subjective Date of Service: 03/04/19 Chief Complaint: Congestive heart failure Patient has improved significantly no new complaint Review of Systems General: Weakness Respiratory: Shortness of Breath Physical Examination - Vital Signs Temperature: 97.8 F Blood Pressure: 131/72 Pulse: 69 Respirations: 20 Pulse Ox (%): 99 - Physical Exam General: Alert, Oriented x3 Neck: Supple Respiratory: Clear to auscultation bilaterally Cardiovascular: No edema, Regular rate/rhythm - Studies Microbiology Data (last 24 hrs): 03/02/19 16:55 Clean Catch Urine Stoddard Count - Final >100,000 CFU/ML. 03/02/19 16:55 Clean Catch Urine - Final Enterococcus Faecalis Assessment & Plan - Problems (Diagnosis) (1) Respiratory failure Current Visit: Yes Status: Resolved Plan: Patient is 78 years of age admitted with respiratory distress acute on chronic respiratory failure she does have COPD underlying diastolic dysfunction compliant with her medication patient deteriorated despite taking higher doses of prednisone chest x-rays clear with cardiomegaly BNP is very elevated no evidence of sepsis rule out thromboembolism repeat 2D echo with Doppler vital signs stable patient on O2 at home Qualifiers: Chronicity: acute on chronic (2) Diastolic dysfunction Current Visit: No Status: Acute (3) Diastolic heart failure Current Visit: Yes Status: Acute Plan: Patient is 78 years of age has normal echocardiogram no evidence of pulmonary emboli normal left ventricular function most likely acute exacerbation of diastolic heart failure patient can be discharged home on 40-80 mg of Lasix resume 25 mg of spironolactone advise the patient to monitor wait to adjust doses based on weight gain or weight loss of 2 lb a day vital signs are all stable Qualifiers: Heart failure chronicity: acute on chronic Qualified Code(s): I50.33 - Acute on chronic diastolic (congestive) heart failure
[2019-03-04 14:43] VITALS: O2SAT 96
--- NOTE | 2019-03-08 11:17 | EKG ---
Test Date: 2019-03-02 Test Time: 16:04:25 Bilingual Customer Service Specialist: JUDI MEASUREMENT RESULTS: Intervals: Rate: 112 HI: 124 QRSD: 110 QT: 402 QTc: 548 Wayne: P: 14 HI: 124 QRS: -46 T: 68 INTERPRETIVE STATEMENTS: Sinus tachycardia with premature ventricular complexes Left axis deviation Intraventricular conduction delay Abnormal ECG Compared to ECG 02/03/2018 11:29:02 Left-axis deviation now present Sinus rhythm no longer present ST (T wave) deviation no longer present Prolonged QT interval no longer present Electronically Signed On 03-02-19 23:17:26 CDT by Gregg Garza
== END 2019-03-04 15:25 | disposition home health service (06) | DRG 291 ==
LOC: ER 15:36 → ERHOLD 17:19 → 4TH 18:22
PROVIDERS: ADMIT Internal Medicine; ATTEND Internal Medicine
DX: I11.0 Hypertensive heart disease with heart failure (principal); J96.22 Acute and chronic respiratory failure with hypercapnia; J96.21 Acute and chronic respiratory failure with hypoxia; I50.33 Acute on chronic diastolic (congestive) heart failure; J44.9 Chronic obstructive pulmonary disease, unspecified; E78.5 Hyperlipidemia, unspecified; K21.9 Gastro-esophageal reflux disease without esophagitis; F32.9 Major depressive disorder, single episode, unspecified; F41.9 Anxiety disorder, unspecified; Z87.891 Personal history of nicotine dependence
CPT/HCPCS: 36415; 51702; 71045; 71275; 74018; 80048; 80076; 81003; 81015; 82805; 82962; 83605; 83690; 83880; 84145; 84484; 85025; 85610; 85730; 87040; 87077; 87086; 87088; 87186; 93005; 93306; 94640; 94660; 94760; 96365; 96375; 99285; J0696; J1940; J2405; J2930; J7605; Q9967

== ENCOUNTER 2019-08-12 09:12 | Inpatient (IN) | payer OTHER, MEDICARE ==
[2019-08-12] MEDS ORDERED: IPRATROPIUM BROM 0.5MG/2.5ML ONE (10:24)
[2019-08-12] MEDS ORDERED: LEVALBUTEROL 1.25 MG/3 ML NEB ONE ×2 (10:24→11:28)
[2019-08-12 10:30] LABS: Protime INR 1.11
[2019-08-12 10:33] LABS: Absolute Lymphocytes (CBC) 0.6 K/uL (0.7-4.9); Basophils % 0.2 % (0-1.3); Hematocrit 34.1 % (36.0-45.0); Lymphocytes % 3.9 % (15.3-44.8); MPV 10.1 fL (7.6-11.3); RBC Red Blood Cell Count 3.75 M/uL (3.86-4.86)
--- NOTE | 2019-08-12 10:42 | RAD REPORT ---
EXAM DESCRIPTION: RAD - Chest Single View - 08/12/2019 10:35 am CLINICAL HISTORY: DYSPNEA Chest pain. COMPARISON: Abdomen 1 View (KUB) dated 03/02/2019; Chest Single View dated 03/02/2019; Chest Single View dated 02/03/2018; Chest Single View dated 12/21/2017 FINDINGS: Portable technique limits examination quality. Mild interstitial pulmonary edema is seen. The heart is moderately enlarged in size. No displaced fra ctures. IMPRESSION: Mild CHF.
[2019-08-12 10:48] LABS: BUN Blood Urea Nitrogen 23 mg/dL (7-18); Bicarbonate 29 mmol/L (21-32); Glucose Level 124 mg/dL (74-106); NT PRO-BNP 9505 pg/mL (<450); Potassium 4.1 mmol/L (3.5-5.1); Sodium Level 140 mmol/L (136-145); Troponin (Emerg Dept Use Only) < 0.02 ng/mL (0.0-0.045)
[2019-08-12 11:16] LABS: Blood Morphology Comment NOT SEEN (NOT SEEN); Platelet Estimate ADEQ; Urine White Blood Cell Casts OK
--- NOTE | 2019-08-12 11:54 | ER ---
Nurse's Notes [facility] Name: Maritza Simon Age: 78 yrs Sex: Female : 1940 Arrival Date: 08/12/2019 Time: 09:15 Bed 6 Private MD: Diagnosis: Pneumonia, unspecified organism-failed outpatient;Unspecified combined systolic (congestive) and diastolic (congestive) heart failure Presentation: 08/12 09:31 Presenting complaint: Patient states: "I've been feeling short of breath for a week and aa5 I went to the doctor and they gave me some pills but is not helping". Pt was prescribed Methylprednisolone dosepk and azithromycin for bronchitis. Pt reports productive cough. Transition of care: patient was not received from another setting of care. Onset of symptoms was July 2019. Risk Assessment: Do you want to hurt yourself or someone else? Patient reports no desire to harm self or others. Initial Sepsis Screen: Does the patient meet any 2 criteria? No. Patient's initial sepsis screen is negative. Does the patient have a suspected source of infection? Yes: Productive cough/pneumonia. Care prior to arrival: None. 09:31 Acuity: TRACY 3 aa5 09:31 Method Of Arrival: Wheelchair aa5 Historical: - Allergies: 09:34 NKA; aa5 - PMHx: 09:34 BOWEL PERFORATION; CHF; chronic uti; COPD; GALLSTONES; GERD; Hyperlipidemia; aa5 Hypertension; - PSHx: 09:34 Colostomy; aa5 - Immunization history:: Pneumococcal vaccine is up to date, Flu vaccine is up to date. - Social history:: Smoking status: Patient/guardian denies using tobacco. - Ebola Screening: : No symptoms or risks identified at this time. Screenin:36 Abuse screen: Denies threats or abuse. Denies injuries from another. Nutritional ph screening: No deficits noted. Tuberculosis screening: No symptoms or risk factors identified. Fall Risk None identified. Assessment: 10:34 General: Appears in no apparent distress. comfortable, well groomed, Behavior is calm, ph cooperative, appropriate for age. Pain: Denies pain. Neuro: Level of Consciousness is awake, alert, obeys commands, Oriented to person, place, time, situation. Cardiovascular: Reports shortness of breath, Denies chest pain, Capillary refill < 3 seconds in bilateral Patient's skin is warm and dry. Rhythm is sinus rhythm. Respiratory: Reports shortness of breath at rest cough that is productive, Airway is patent Respiratory effort is even, labored, Respiratory pattern is tachypnea Breath sounds are coarse bilaterally. GI: Patient currently denies. Derm: Skin is intact, is healthy with good turgor, Skin is pink, warm \\T\\ dry. Musculoskeletal: Circulation, motion, and sensation intact. Range of motion: intact in all extremities. 11:30 Reassessment: Patient appears in no apparent distress at this time. Patient and/or ph family updated on plan of care and expected duration. Pain level reassessed. Patient is alert, oriented x 3, equal unlabored respirations, skin warm/dry/pink. 12:30 Reassessment: Patient appears in no apparent distress at this time. Patient and/or ph family updated on plan of care and expected duration. Pain level reassessed. Patient is alert, oriented x 3, equal unlabored respirations, skin warm/dry/pink. 13:54 Reassessment: Patient appears in no apparent distress at this time. Patient and/or ph family updated on plan of care and expected duration. Pain level reassessed. Patient is alert, oriented x 3, equal unlabored respirations, skin warm/dry/pink. Report called to Sharon COSTELLO on 4th floor. Vital Signs: 09:34 BP 122 / 79; Pulse 89; Resp 26 S; Temp 99.3(O); Pulse Ox 89% on 2 lpm NC; Weight 101.6 aa5 kg (R); Height 5 ft. 9 in. (175.26 cm) (R); 10:37 BP 146 / 89; Pulse 87; Resp 18; Pulse Ox 97% on Nebulizer Mask; ph 12:00 BP 121 / 68; Pulse 101; Resp 18; Pulse Ox 96% on 3 lpm NC; ph 13:39 BP 111 / 54; Pulse 95; Resp 18; Temp 98.7; Pulse Ox 96% on 3 lpm NC; ph 09:34 Body Mass Index 33.08 (101.60 kg, 175.26 cm) aa5 Vitals: 10:37 Cardiac Rhythm Assessment Regular. ph ED Course: 09:15 Patient arrived in ED. aa5 09:31 Arm band placed on. aa5 09:33 Triage completed. aa5 09:41 Kisha Lora FNP-C is PHCP. kb 09:42 Denisse Loyd, RN is Primary Nurse. hb 09:42 Kisha Lora FNP-C is PHCP. kb 09:42 Luis Ramey MD is Attending Physician. kb 09:48 Taylor Tuttle, TRANG is Primary Nurse. ph 10:14 Initial lab(s) drawn, by me, sent to lab. First set of blood cultures drawn by me. ms 10:19 Inserted saline lock: 20 gauge in right forearm, using aseptic technique. Blood ms collected. 10:25 EKG done, by linen tech. reviewed by Kisha BELLAMY. at1 10:35 Second set of blood cultures drawn by ED staff. ph 10:36 Patient has correct armband on for positive identification. Bed in low position. Call ph light in reach. Side rails up X 1. monitor technician on. Pulse ox on. NIBP on. Door closed. Warm blanket given. Head of bed elevated. 10:37 XRAY Chest (1 view) In Process Unspecified. EDMS 11:53 James Lew MD is Hospitalizing Provider. kb 13:40 No provider procedures requiring assistance completed. Patient admitted, IV remains in ph place. Administered Medications: 10:33 Drug: Xopenex (3) 1.25 mg Route: Inhalation; ph 13:48 Follow up: Response: No adverse reaction ph 10:33 Drug: AtroVENT Aerosol 0.5 mg Route: Inhalation; ph 13:48 Follow up: Response: No adverse reaction ph 12:14 Drug: Rocephin 1 grams Route: IV; Rate: calculated rate; Site: right wrist; ph 12:30 Follow up: Response: No adverse reaction; IV Status: Completed infusion ph 13:06 Drug: Zithromax 500 mg Route: IVPB; Infused Over: 1 hrs; Site: right wrist; ph 13:54 Follow up: Response: No adverse reaction; IV Status: Infusion continued upon admission ph 13:07 Drug: Zofran 4 mg Route: IVP; Site: right antecubital; ph 13:55 Follow up: Response: No adverse reaction; Nausea is decreased ph Outcome: 11:53 Decision to Hospitalize by Provider. kb 13:40 Admitted to Tele accompanied by tech, family with patient, via stretcher, room 401, ph with chart. 13:40 Condition: stable 14:00 Patient left the ED. ph Signatures: Dispatcher [employer] EDMS Kisha Lora, ALMOND HULLERMohsenC ALMOND HULLER-Anastasia Jarvis ms, Audri, RN RN aa5 Monik Sheets, lead android developer EKG Tat1 Taylor Tuttle RN RN Denisse Loyd RN RN
--- NOTE | 2019-08-12 11:55 | EDPHYS ---
Physician Documentation [facility] Name: Maritza Simon Age: 78 yrs Sex: Female : 1940 Arrival Date: 08/12/2019 Time: :15 Bed 6 Private MD: ED Physician Luis Ramey HPI: 08/12 10:02 This 78 yrs old Female presents to ER via Wheelchair with complaints of kb Shortness Of Breath. 10:02 The patient has shortness of breath at rest. Onset: The symptoms/episode began/occurred kb 9 day(s) ago. Duration: The symptoms are continuous. The patient's shortness of breath is aggravated by light activity. Associated signs and symptoms: Pertinent positives: productive cough, Pertinent negatives: chest pain, fever. Severity of symptoms: At their worst the symptoms were moderate in the emergency department the symptoms are unchanged. The patient has experienced similar episodes in the past. The patient has been recently seen by a physician: the patient's primary care provider, Dr. Lew in the office, 5 day(s) ago, with similar presenting complaints, was given a prescription for antibiotics, but the patient's symptoms have worsened. Pt reports she started feeling weak last , then worse with cough and shortness of breath on Thursday. Symptoms continued to get worse so she went to Dr Lew on Thursday and was given a steroid and antibiotics. States she started getting a little better after starting the medication, but then woke up this morning and could hardly get out of bed because of the shortness of breath. . Historical: - Allergies: 09:34 NKA; aa5 - PMHx: 09:34 BOWEL PERFORATION; CHF; chronic uti; COPD; GALLSTONES; GERD; Hyperlipidemia; aa5 Hypertension; - PSHx: 09:34 Colostomy; aa5 - Immunization history:: Pneumococcal vaccine is up to date, Flu vaccine is up to date. - Social history:: Smoking status: Patient/guardian denies using tobacco. - Ebola Screening: : No symptoms or risks identified at this time. ROS: 10:05 ENT: Negative for injury, pain, and discharge, Neck: Negative for injury, pain, and kb swelling, Cardiovascular: Negative for chest pain, palpitations, and edema, Abdomen/GI: Negative for abdominal pain, nausea, vomiting, diarrhea, and constipation, Back: Negative for injury and pain, MS/Extremity: Negative for injury and deformity, Skin: Negative for injury, rash, and discoloration, Neuro: Negative for headache, weakness, numbness, tingling, and seizure. 10:05 Constitutional: Positive for fatigue, malaise. 10:05 Respiratory: Positive for cough, shortness of breath. Exam: 10:05 Constitutional: This is a well developed, well nourished patient who is awake, alert, kb and in no acute distress. Head/Face: Normocephalic, atraumatic. ENT: Nares patent. No nasal discharge, no septal abnormalities noted. Tympanic membranes are normal and external auditory canals are clear. Oropharynx with no redness, swelling, or masses, exudates, or evidence of obstruction, uvula midline. Mucous membranes moist. Neck: Trachea midline, no thyromegaly or masses palpated, and no cervical lymphadenopathy. Supple, full range of motion without nuchal rigidity, or vertebral point tenderness. No Meningismus. Chest/axilla: Normal chest wall appearance and motion. Nontender with no deformity. No lesions are appreciated. Cardiovascular: Regular rate and rhythm with a normal S1 and S2. No gallops, murmurs, or rubs. Normal PMI, no JVD. No pulse deficits. Abdomen/GI: Soft, non-tender, with normal bowel sounds. No distension or tympany. No guarding or rebound. No evidence of tenderness throughout. Skin: Warm, dry with normal turgor. Normal color with no rashes, no lesions, and no evidence of cellulitis. MS/ Extremity: Pulses equal, no cyanosis. Neurovascular intact. Full, normal range of motion. Neuro: Awake and alert, GCS 15, oriented to person, place, time, and situation. Cranial nerves II-XII grossly intact. Motor strength 5/5 in all extremities. Sensory grossly intact. Cerebellar exam normal. Normal gait. 10:05 Respiratory: moderate respiratory distress is noted, Respirations: labored breathing, that is moderate, Breath sounds: rhonchi, that are moderate, are located in both bases. 10:05 Abdomen/GI: colostomy noted. Vital Signs: 09:34 BP 122 / 79; Pulse 89; Resp 26 S; Temp 99.3(O); Pulse Ox 89% on 2 lpm NC; Weight 101.6 aa5 kg (R); Height 5 ft. 9 in. (175.26 cm) (R); 10:37 BP 146 / 89; Pulse 87; Resp 18; Pulse Ox 97% on Nebulizer Mask; ph 12:00 BP 121 / 68; Pulse 101; Resp 18; Pulse Ox 96% on 3 lpm NC; ph 13:39 BP 111 / 54; Pulse 95; Resp 18; Temp 98.7; Pulse Ox 96% on 3 lpm NC; ph 09:34 Body Mass Index 33.08 (101.60 kg, 175.26 cm) aa5 MDM: 09:42 Patient medically screened. kb 10:05 Data reviewed: vital signs, nurses notes. Data interpreted: Pulse oximetry: on room air kb is 89 %. Interpretation: hypoxia. 11:52 Counseling: I had a detailed discussion with the patient and/or guardian regarding: the kb historical points, exam findings, and any diagnostic results supporting the discharge/admit diagnosis, lab results, radiology results, the need for further work-up and treatment in the hospital. Physician consultation: James Lew MD was contacted at 11:52, regarding admission, to the telemetry unit. patient's condition, and will see patient in inpatient room, shortly. 11:53 ED course: Pt reports she does feel a little better than before, but still having some kb shortness of breath. O2 sat 92% on 4L. . 09 09:47 Order name: Basic Metabolic Panel; Complete Time: 10:58 kb 08/12 09:47 Order name: CBC with Diff; Complete Time: 11:19 kb 08/12 09:47 Order name: Magnesium; Complete Time: 10:58 kb 08/12 09:47 Order name: NT PRO-BNP; Complete Time: 10:58 kb 08/12 09:47 Order name: PT-INR; Complete Time: 10:39 kb 08/12 09:47 Order name: Troponin (emerg Dept Use Only); Complete Time: 10:58 kb 08/12 09:47 Order name: XRAY Chest (1 view); Complete Time: 10:58 kb 08/12 09:47 Order name: Blood Culture Adult (2) kb 08/12 09:47 Order name: Lactate; Complete Time: 10:58 kb 08/12 09:47 Order name: Procalcitonin; Complete Time: 11:24 kb 08/12 10:37 Order name: CBC Smear Scan; Complete Time: 11:19 EDMS 08/12 09:47 Order name: EKG; Complete Time: 09:49 kb 08/12 09:47 Order name: Cardiac monitoring; Complete Time: 10:19 kb 08/12 09:47 Order name: EKG - Nurse/Tech; Complete Time: 10:19 kb 08/12 09:47 Order name: IV Saline Lock; Complete Time: 10:19 kb 08/12 09:47 Order name: Labs collected and sent; Complete Time: 10:19 kb 08/12 09:47 Order name: O2 Per Protocol; Complete Time: 10:19 kb 08/12 09:47 Order name: O2 Sat Monitoring; Complete Time: 10:19 kb Administered Medications: 10:33 Drug: Xopenex (3) 1.25 mg Route: Inhalation; ph 13:48 Follow up: Response: No adverse reaction ph 10:33 Drug: AtroVENT Aerosol 0.5 mg Route: Inhalation; ph 13:48 Follow up: Response: No adverse reaction ph 12:14 Drug: Rocephin 1 grams Route: IV; Rate: calculated rate; Site: right wrist; ph 12:30 Follow up: Response: No adverse reaction; IV Status: Completed infusion ph 13:06 Drug: Zithromax 500 mg Route: IVPB; Infused Over: 1 hrs; Site: right wrist; ph 13:54 Follow up: Response: No adverse reaction; IV Status: Infusion continued upon admission ph 13:07 Drug: Zofran 4 mg Route: IVP; Site: right antecubital; ph 13:55 Follow up: Response: No adverse reaction; Nausea is decreased ph Disposition: 19:01 Co-signature as Attending Physician, Luis Ramey MD. rn Disposition: 08/12/19 11:53 Hospitalization ordered by James Lew for Inpatient Admission. Preliminary diagnosis are Pneumonia, unspecified organism - failed outpatient, Unspecified combined systolic (congestive) and diastolic (congestive) heart failure. - Bed requested for Telemetry/MedSurg (Inpatient). - Status is Inpatient Admission. ph - Condition is Stable. - Problem is new. - Symptoms are unchanged. UTI on Admission? No Signatures: Dispatcher [employer] EDKisha Miguel FNP-C FNP-Ckb Karla Morrison, RN RN dw Luis Ramey MD MD rn Calderon, Audri, RN RN aa5 Taylor Tuttle RN RN ph Corrections: (The following items were deleted from the chart) 12:57 11:53 Hospitalization Ordered by James Lew MD for Inpatient Admission. Preliminary dw diagnosis is Pneumonia, unspecified organism - failed outpatient; Unspecified combined systolic (congestive) and diastolic (congestive) heart failure. Bed requested for Telemetry/MedSurg (Inpatient). Status is Inpatient Admission. Condition is Stable. Problem is new. Symptoms are unchanged. UTI on Admission? No. kb 14:00 12:57 08/12/2019 11:53 Hospitalization Ordered by James Lew MD for Inpatient ph Admission. Preliminary diagnosis is Pneumonia, unspecified organism - failed outpatient; Unspecified combined systolic (congestive) and diastolic (congestive) heart failure. Bed requested for Telemetry/MedSurg (Inpatient). Status is Inpatient Admission. Condition is Stable. Problem is new. Symptoms are unchanged. UTI on Admission? No. dw
[2019-08-12] MEDS ORDERED: CEFTRIAXONE/SWI 1gm 1 GM/10 ML SYR ONE (12:07)
[2019-08-12] MEDS ORDERED: AZITHROMYCIN IV 500 MG in NA CHLORIDE 0.9% 250 ML IVPB ONE (12:45)
[2019-08-12] MEDS ORDERED: ONDANSETRON 4 MG/2 ML VIAL ONE (13:00)
[2019-08-12 14:35] VITALS: BMI 32.1
[2019-08-12] MEDS: ACETAMINOPHEN 500 MG TAB PO PRN (17:03)
[2019-08-12 19:15] LABS: Urine Appearance CLOUDY; Urine Bilirubin NEGATIVE (NEG); Urine Blood TRACE (NEG); Urine Color YELLOW; Urine Glucose NEGATIVE (NEG); Urine Protein TRACE (NEG); Urine Urobilinogen 0.2 mg/dL (0.2-1.0); Urine pH 5.5 (5.0-7.0)
[2019-08-12 19:41] LABS: Urine Bacteria >50 /HPF (<20); Urine Culture Reflex Order REFLEXED; Urine Microscopic Reflex ORDER UMIC; Urine Mucus 2+ /HPF (NONE SEEN)
--- NOTE | 2019-08-12 20:20 | EKG ---
Test Date: 2019-08-12 Test Time: 10:23:22 Aerial Lineman: DIA MEASUREMENT RESULTS: Intervals: Rate: 90 PA: 232 QRSD: 114 QT: 374 QTc: 457 [place]: P: -6 PA: 232 QRS: -44 T: 55 INTERPRETIVE STATEMENTS: Sinus rhythm with 1st degree AV block with premature supraventricular complexes Left axis deviation Incomplete left bundle branch block Left ventricular hypertrophy with repolarization abnormality Abnormal ECG Compared to ECG 03/02/2019 16:04:25 Atrial premature complex(es) now present First degree AV block now present Left bundle-branch block now present Left ventricular hypertrophy now present Early repolarization now present Sinus tachycardia no longer present Ventricular premature complex(es) no longer present Intraventricular conduction delay no longer present Electronically Signed On 08-12-19 20:18:32 CDT by eDjan Goode
[2019-08-12] MEDS: AMITRIPTYLINE 25 MG TAB PO SCH (21:00)
[2019-08-12] MEDS: CEFTRIAXONE/SWI 1gm 1 GM/10 ML SYR IVP SCH (21:00)
[2019-08-13 06:41] LABS: Absolute Lymphocytes (CBC) 0.9 K/uL (0.7-4.9); Basophils % 0.4 % (0-1.3); Hematocrit 30.5 % (36.0-45.0); Lymphocytes % 8.6 % (15.3-44.8); MPV 9.4 fL (7.6-11.3); RBC Red Blood Cell Count 3.33 M/uL (3.86-4.86)
[2019-08-13 06:56] LABS: Potassium 4.3 mmol/L (3.5-5.1)
[2019-08-13] MEDS: ACETAMINOPHEN 500 MG TAB PO PRN (07:43)
[2019-08-13] MEDS ORDERED: HOME MED 1 EA UNK (Calcium Carbonate [Calcium] 600 MG) PO SCH (09:00)
[2019-08-13] MEDS: ATENOLOL 25 MG TAB PO SCH (10:17)
[2019-08-13] MEDS: CEFTRIAXONE/SWI 1gm 1 GM/10 ML SYR IVP SCH ×2 (10:17→21:15)
[2019-08-13] MEDS: CALCIUM CARBONATE 500 MG TAB PO SCH (10:17)
[2019-08-13] MEDS: FLUOXETINE 20 MG CAP PO SCH (10:17)
[2019-08-13] MEDS: FUROSEMIDE 40 MG/4 ML VIAL IV SCH (10:17)
[2019-08-13] MEDS: AZITHROMYCIN IV 250 MG in NA CHLORIDE 0.9% 250 ML IVPB SCH (10:18)
[2019-08-13] MEDS ORDERED: TRAMADOL HCL 50 MG TAB PO PRN (15:05)
[2019-08-13] MEDS ORDERED: MAGNES/ALUMIN/SIMET 30ML UCUP PO PRN (15:05)
[2019-08-13] MEDS: ALBUTEROL 2.5 MG/3 ML NEB SOL NEB PRN (18:42)
[2019-08-13] MEDS: IPRATROPIUM BROM 0.5MG/2.5ML NEB PRN (18:42)
[2019-08-13] MEDS: PANTOPRAZOLE 40MG TABLET PO SCH (21:14)
[2019-08-13] MEDS: DOCUSATE NA 100 MG CAP PO SCH (21:14)
[2019-08-13] MEDS: AMITRIPTYLINE 25 MG TAB PO SCH (21:14)
[2019-08-13] MEDS: ATORVASTATIN 10 MG TAB PO SCH (21:14)
--- NOTE | 2019-08-14 01:39 | HP ---
Date of Admission: 08/12/2019 History Of Present Illness: Patient is a 78-year-old female with COPD, oxygen-dependent. I have see n the patient few days before admission. She was complaining of mild increased shortness of breath a nd wheezing. An acute bronchitis versus walking pneumonia was considered. She was put on Z-Manny and Medrol Dosepak. The patient, however, did not improve. She came to emergency room with the same com plaint that had gotten slightly worse. Her workup showed the patient may have mild CHF exacerbation versus also an infectious process in her lungs, bronchitis or pneumonia could be hidden by the CHF, a nd we went ahead and admitted her for that. Patient denies fever or chills. No nausea, no vomiting. No chest pain and voiced no other complaints. Review of Systems: Respiratory: As above. Cardiovascular: No complaints. Genitourinary: No complaints. Skeletomusc ular: No complaints. Gastrointestinal: No complaint. Past Medical History: 1.COPD. 2.Hypertension. 3.Hyperlipidemia. 4.Gastroesophageal reflux disease. 5.Systolic congestive heart failure. 6.History of bowel perforation. 7.History of gallbladder stones. Past Surgical History: Patient had colostomy in the past. Social History: Right now, no smoking, alcohol, or IV drug abuse history. Family History: Noncontributing. Medications: Albuterol 2 puffs q.i.d. and as I mentioned she was on Z-Manny as an outpatient few days ago, amitriptyline 25 mg p.o. at bedtime, atenolol 25 mg p.o. daily, calcium 600 mg p.o. daily, Proza c 20 mg p.o. daily, omeprazole 20 mg p.o. daily. Allergies: NO KNOWN DRUG ALLERGIES. Physical Examination: Vital Signs: Blood pressure 120/60, pulse 68, temperature 97.3. Heart: Regular rate and rhythm. Chest: Clear to auscultation. Abdomen: Soft, nontender. No hepatosplenomegaly. Bowel sounds are normoactive. Extremities: Trace bilateral pitting edema at the level of the ankle. Neurological: Alert, oriented, nonfocal. Grossly intact. Diagnostic Data: Chest x-ray: Mild CHF. Electrocardiogram: Sinus rhythm, third-degree AV block, premature supraventricular complexes, left a xis deviation, incomplete left bundle-branch block, left ventricular hypertrophy with repolarization abnormality. Laboratory Data: White cell count dropped from 16.6 to 10.7, hemoglobin 10.1, hematocrit 30.5, plate lets 154, neutrophils 83. Chemistry: BUN 22, creatinine 0.97, GFR 56. BNP 5795. Prolactin less than 0.05. Urinalysis showed evidence of UTI. Microbiology results still pending. Assessment And Plan: Patient has symptoms of increased shortness of breath, likely related to mild c ongestive heart failure exacerbation, which could also been have triggered by acute bronchitis versus walking pneumonia, which did not show on x-ray because of the congestive heart failure. Patient is being admitted. We will put her on breathing treatment, oxygen protocol, IV Lasix 40 mg daily, and w e will put her on IV ceftriaxone, IV Zithromax. We will continue her medications for chronic medical illnesses and we will follow up her electrolytes. Expect the patient discharge in about a day or so . She is already improving with the above treatment. Also, we think that her urinary tract infection will be treated with the same antibiotics. Look orders for details. MFS/MODL Voice ID: [id number]
[2019-08-14 06:15] LABS: Absolute Lymphocytes (CBC) 0.9 K/uL (0.7-4.9); Basophils % 0.2 % (0-1.3); Hematocrit 30.8 % (36.0-45.0); Lymphocytes % 9.2 % (15.3-44.8); MPV 9.8 fL (7.6-11.3); RBC Red Blood Cell Count 3.41 M/uL (3.86-4.86)
[2019-08-14 06:43] LABS: Potassium 3.9 mmol/L (3.5-5.1)
[2019-08-14] MEDS ORDERED: FLUOXETINE 20 MG CAP PO SCH (09:00)
[2019-08-14] MEDS: FUROSEMIDE 40 MG/4 ML VIAL IV SCH (09:14)
[2019-08-14] MEDS: predniSONE 10 MG TAB PO SCH (09:15)
[2019-08-14] MEDS: CEFTRIAXONE/SWI 1gm 1 GM/10 ML SYR IVP SCH ×2 (09:15→21:28)
[2019-08-14] MEDS: CETIRIZINE HCL 5 MG TABLET PO SCH (09:15)
[2019-08-14] MEDS: CALCIUM CARBONATE 500 MG TAB PO SCH (09:15)
[2019-08-14] MEDS: PANTOPRAZOLE 40MG TABLET PO SCH ×2 (09:15→16:10)
[2019-08-14] MEDS: FLUOXETINE 20 MG CAP PO SCH (09:15)
[2019-08-14] MEDS: AZITHROMYCIN IV 250 MG in NA CHLORIDE 0.9% 250 ML IVPB SCH (09:21)
[2019-08-14] MEDS: ATENOLOL 25 MG TAB PO SCH (09:22)
[2019-08-14] MEDS ORDERED: POTASSIUM CL SA 10 MEQ TAB PO ONE (10:00)
[2019-08-14] MEDS: IPRATROPIUM BROM 0.5MG/2.5ML NEB PRN (13:36)
[2019-08-14] MEDS: ALBUTEROL 2.5 MG/3 ML NEB SOL NEB PRN (13:36)
--- NOTE | 2019-08-14 15:18 | PN ---
Subjective: Patient has no new complaints. Her shortness of breath, however, has improved. Objective: Vital Signs: Blood pressure 150/70, pulse 72, temperature 97.9, and respiratory rate is 20. Pulse oximetry on 2 L nasal prong 98%. Physical exam is basically no change. Laboratory Data: CBC is noted. Chemistry noted with BUN 19, creatinine 0.89, blood sugar 107. BNP 5795, has dropped. Urine microbiology showed mixed ree. Assessment And Plan: Congestive heart failure exacerbation along with bronchitis versus pneumonia. Patient is improving on current diuresis and current antibiotics, and we will continue current treatm ent and care. Her input and output have been noted. She is mildly diuresing. We will continue as m entioned above treatment and expect discharge in the morning as she continues to improve. MFS/MODL Voice ID: [id number] Report ID: [id number]
[2019-08-14] MEDS: DOCUSATE NA 100 MG CAP PO SCH (21:27)
[2019-08-14] MEDS: AMITRIPTYLINE 25 MG TAB PO SCH (21:28)
[2019-08-14] MEDS: ATORVASTATIN 10 MG TAB PO SCH (21:28)
[2019-08-15] MEDS: ATENOLOL 25 MG TAB PO SCH (09:48)
[2019-08-15] MEDS: PANTOPRAZOLE 40MG TABLET PO SCH (09:48)
[2019-08-15] MEDS: CALCIUM CARBONATE 500 MG TAB PO SCH (09:49)
[2019-08-15] MEDS: predniSONE 10 MG TAB PO SCH (09:49)
[2019-08-15] MEDS: AZITHROMYCIN IV 250 MG in NA CHLORIDE 0.9% 250 ML IVPB SCH (09:49)
[2019-08-15] MEDS: CETIRIZINE HCL 5 MG TABLET PO SCH (09:49)
[2019-08-15] MEDS: CEFTRIAXONE/SWI 1gm 1 GM/10 ML SYR IVP SCH (09:49)
[2019-08-15] MEDS: FUROSEMIDE 40 MG/4 ML VIAL IV SCH (09:49)
[2019-08-15] MEDS: FLUOXETINE 20 MG CAP PO SCH (09:49)
[2019-08-15 12:04] VITALS: O2SAT 95
[2019-08-15 13:27] VITALS: BP 138/68; TEMP 96.9
--- NOTE | 2019-08-16 11:20 | DS ---
Date of Discharge: 08/15/2019 History: A 78-year-old female who was admitted to the hospital because of increased shortness of claire ath thought to be secondary to congestive heart failure exacerbation along with acute bronchitis in a patient with COPD and chronic respiratory failure. Past Medical History: As per admit note. Social History: As per admit note. Family History: As per admit note. Medications: As per admit note. Allergies: PER ADMIT NOTE. Physical Examination: As per admit note. Diagnostic Data: As per admit note. Hospital Course: Patient was admitted to the hospital. She was put on IV furosemide, bedrest, and s alt restriction. She was also put on IV azithromycin and IV ceftriaxone antibiotics, oxygen protocol . She uses also home oxygen. We monitored her electrolytes and her in's and out's. Patient gradual ly improved and her shortness of breath has resolved. She is now at baseline from that standpoint, arlyn jane at this time and a physical exam today is basically showing no edema. Her lungs are clear to auscultation. Heart, regular rate and rhythm. Vitals are stable. We thought the patient is stab le enough to be discharged on Augmentin 875 p.o. b.i.d. To resume her home medicines. I have instru cted her about low-salt diet and emphasized on that and the patient to follow up with me. Look the discharge orders for details. LA/ANGELINA Voice ID: [id number] Report ID: [id number]
== END 2019-08-15 13:35 | disposition home or self-care (01) | DRG 292 ==
LOC: ER 09:12 → ERHOLD 12:15 → 4TH 13:56
PROVIDERS: ADMIT Internal Medicine; ATTEND Internal Medicine
DX: I11.0 Hypertensive heart disease with heart failure (principal); J44.0 Chronic obstructive pulmonary disease with (acute) lower respiratory infection; J96.10 Chronic respiratory failure, unspecified whether with hypoxia or hypercapnia; I50.23 Acute on chronic systolic (congestive) heart failure; K21.9 Gastro-esophageal reflux disease without esophagitis; Z99.81 Dependence on supplemental oxygen; J20.9 Acute bronchitis, unspecified; I44.7 Left bundle-branch block, unspecified
CPT/HCPCS: 36415; 71045; 80048; 81003; 81015; 83605; 83735; 83880; 84145; 84484; 85025; 85610; 87040; 87077; 87086; 87088; 87186; 93005; 94760; 96365; 96367; 96375; 99285; J0456; J0696; J1940; J2405; J7512

== ENCOUNTER 2020-07-22 11:55 | Emergency (ER) | payer OTHER, MEDICARE ==
[2020-07-22 12:58] LABS: Absolute Lymphocytes (CBC) 0.5 K/uL (0.7-4.9); Basophils % 0.6 % (0-1.3); Hematocrit 35.5 % (36.0-45.0); Lymphocytes % 7.2 % (15.3-44.8); MPV 9.9 fL (7.6-11.3); Protime INR 1.03; RBC Red Blood Cell Count 3.93 M/uL (3.86-4.86)
--- NOTE | 2020-07-22 13:08 | RAD REPORT ---
EXAM DESCRIPTION: [place] Single View07/22/2020 1:01 pm CLINICAL HISTORY: Shortness breath COMPARISON: 2018 FINDINGS: The lungs appear clear of acute infiltrate. The heart is moderately enlarged IMPRESSION: No acute abnormalities displayed
[2020-07-22 13:12] LABS: ALT/SGPT 18 U/L (12-78); AST/SGOT 17 U/L (15-37); Albumin 2.8 g/dL (3.4-5.0); Alkaline Phosphatase 69 U/L (45-117); BUN Blood Urea Nitrogen 28 mg/dL (7-18); Bicarbonate 32 mmol/L (21-32); Bilirubin Direct 0.1 mg/dL (0-0.2); Bilirubin Total 0.4 mg/dL (0.2-1.0); Glucose Level 90 mg/dL (74-106); Magnesium 2.3 mg/dL (1.8-2.4); NT PRO-BNP 920 pg/mL (<450); Potassium 4.9 mmol/L (3.5-5.1); Protein, Total 6.7 g/dL (6.4-8.2); Sodium Level 142 mmol/L (136-145); Troponin (Emerg Dept Use Only) < 0.02 ng/mL (0.0-0.045)
[2020-07-22] MEDS ORDERED: dexAMETHasone 10 MG/ML VIAL ONE (15:07)
[2020-07-22] MEDS ORDERED: LEVALBUTEROL 1.25 MG/3 ML NEB ONE (15:08)
--- NOTE | 2020-07-22 15:30 | ER ---
Nurse's Notes [facility] Name: Maritza Simon Age: 79 yrs Sex: Female : 1940 Arrival Date: 07/22/2020 Time: 11:57 Bed 16 Private MD: James Lew F Diagnosis: Chronic obstructive pulmonary disease, unspecified;Tinea pedis Presentation: 07/22 12:24 Chief complaint: Patient states: SOB and swelling x 2 weeks. Ebola Screen: No symptoms jl7 or risks identified at this time. Initial Sepsis Screen: Does the patient meet any 2 criteria? RR > 20 per min. No. Patient's initial sepsis screen is negative. Does the patient have a suspected source of infection? Yes: Productive cough/pneumonia. Risk Assessment: Do you want to hurt yourself or someone else? Patient reports no desire to harm self or others. Onset of symptoms was July 04, 2020. Care prior to arrival: None. Transition of care: patient was not received from another setting of care. 12:24 Method Of Arrival: Wheelchair jl7 12:24 Acuity: TRACY 2 jl7 15:06 Coronavirus screen: At this time, the client does not indicate any symptoms associated jd3 with coronavirus-19. Triage Assessment: 12:54 Respiratory: Reports shortness of breath at rest Onset: The symptoms/episode jd3 began/occurred at an unknown time. the patient has moderate shortness of breath. Historical: - Allergies: 12:28 NKA; jl7 - Home Meds: 13:41 Advair Diskus 250-50 mcg/dose Inhl dsdv 1 puff 2 times per day [Active]; amitriptyline jl7 25 mg Oral tab 1 tab once daily [Active]; atenolol 25 mg Oral tab 1 tab 2 times per day [Active]; calcium 600 mg daily [Active]; cetirizine 10 mg Oral tab [Active]; fluoxetine 20 mg Oral cap 1 cap once daily [Active]; furosemide 40 mg Oral tab 1 tab once daily [Active]; Maalox Plus Extra Strength Oral [Active]; omeprazole 20 mg Oral cpDR 2 caps 2 times per day [Active]; ProAir HFA 90 mcg/actuation inhalation HFAA as needed [Active]; simvastatin 10 mg Oral tab 1 tab once daily [Active]; spironolactone 25 mg Oral tab 1 tab once daily [Active]; tramadol 50 mg Oral tab 1 tab every 6 hours [Active]; multivitamin Oral cap daily [Active]; prednisone 10 mg oral tab [Active]; - PMHx: 12:28 BOWEL PERFORATION; CHF; chronic uti; COPD; GALLSTONES; GERD; Hyperlipidemia; jl7 Hypertension; - PSHx: 12:28 Colostomy; jl7 - Immunization history:: Adult Immunizations unknown. - Social history:: Smoking status: Patient/guardian denies using tobacco, the patient reports quitting approximately 18 years ago. Screenin:55 Abuse screen: Denies threats or abuse. Nutritional screening: No deficits noted. jd3 Tuberculosis screening: No symptoms or risk factors identified. Fall Risk IV access (20 points). Gait- Weak (10 pts.). Mental Status- Oriented to own ability (0 pts). Total Roberts Fall Scale indicates Low Risk Score (25-44 pts). Fall prevention measures have been instituted. Side Rails Up X 2 Placed close to Nursing Station Frequent Obs/Assesments occuring. Assessment: 12:48 General: Appears in no apparent distress. uncomfortable, well groomed, Behavior is jd3 calm, cooperative, appropriate for age. Pain: Denies pain. Neuro: Level of Consciousness is awake, alert, obeys commands, Oriented to person, place, time, situation. Cardiovascular: Denies chest pain, Heart tones present Capillary refill < 3 seconds Patient's skin is warm and dry. Rhythm is irregular. Respiratory: Airway is patent Respiratory effort is labored, shallow, Respiratory pattern is symmetrical, tachypnea Breath sounds are diminished bilaterally. 12:48 GI: No signs and/or symptoms were reported involving the gastrointestinal system. : jd3 No signs and/or symptoms were reported regarding the genitourinary system. EENT: No signs and/or symptoms were reported regarding the EENT system. Derm: Skin is intact, Skin is dry, Skin is normal, Skin temperature is warm. Musculoskeletal: Circulation, motion, and sensation intact. Range of motion: intact in all extremities. 15:35 Reassessment: Patient appears in no apparent distress at this time. Patient and/or jd3 family updated on plan of care and expected duration. Pain level reassessed. Patient is alert, oriented x 3, equal unlabored respirations, skin warm/dry/pink. awaiting family for discharge Patient states feeling better. 16:13 Reassessment: Patient appears in no apparent distress at this time. No changes from jd3 previously documented assessment. Patient and/or family updated on plan of care and expected duration. Pain level reassessed. Patient is alert, oriented x 3, equal unlabored respirations, skin warm/dry/pink. Vital Signs: 12:24 BP 106 / 67; Pulse 69; Resp 29 S; Temp 98.3(O); Pulse Ox 100% on 3 lpm NC; Weight jl7 104.33 kg; Pain 9/10; 12:47 BP 123 / 75; Pulse 69; Resp 25 S; Pulse Ox 98% on 3 lpm NC; Pain 0/10; jd3 15:05 BP 118 / 61; Pulse 70; Resp 20 S; Pulse Ox 97% on R/A; jd3 15:35 BP 114 / 97; Pulse 87; Resp 20 S; Pulse Ox 97% on 2 lpm NC; jd3 16:13 BP 93 / 58; Pulse 86; Resp 19 S; Pulse Ox 97% on 2 lpm NC; jd3 ED Course: 11:57 Patient arrived in ED. as 11:58 James Lew MD is Private Physician. as 12:01 [facility] pm1 12:01 Ilia Perez MD is Attending Physician. pm1 12:21 Ari Stroud RN is Primary Nurse. jd3 12:27 Triage completed. jl7 12:28 Arm band placed on right wrist. jl7 12:46 Initial lab(s) drawn, by wi, sent to lab. EKG done, by technical delivery manager. reviewed by Chico Banuelos NP. Inserted saline lock: 20 gauge in left antecubital area, using aseptic technique. Blood collected. 12:54 Patient has correct armband on for positive identification. Placed in gown. Bed in low jd3 position. Call light in reach. Side rails up X2. conveyor monitor on. Pulse ox on. NIBP on. 13:00 XRAY Chest (1 view) In Process Unspecified. EDMS 15:30 Kevin Reaves MD is Referral Physician. pm1 16:42 No provider procedures requiring assistance completed. IV discontinued, intact, jd3 bleeding controlled, No redness/swelling at site. Pressure dressing applied. Administered Medications: 15:05 Drug: Decadron - Dexamethasone 10 mg Route: IVP; Site: left antecubital; jd3 16:42 Follow up: Response: No adverse reaction jd3 15:05 Drug: Xopenex (3) 1.25 mg Route: Inhalation; jd3 16:00 Follow up: Response: No adverse reaction jd3 Outcome: 15:30 Discharge ordered by MD. pm1 16:42 Discharged to home via wheelchair, with family. jd3 16:42 Condition: stable 16:42 Discharge instructions given to patient, Instructed on discharge instructions, follow up and referral plans. medication usage, Demonstrated understanding of instructions, follow-up care, medications, Prescriptions given X 1. 16:51 Patient left the ED. jd3 Addendum: 07/25/2020 14:33 Addendum: COVID-19 Result: Negative result given to RN to notify pt. Left voice mail. a a5 Signatures: Dispatcher [employer] EDMS Twila Carlson Audri, RN RN aa5 Chico Banuelos NP P[employer]AGER [employer]ER [employer]HER pm1 Ioana Pan RN RN jl7 Ari Stroud RN RN jd3 Corrections: (The following items were deleted from the chart) 07/22 15:36 15:35 Reassessment: Patient appears in no apparent distress at this time. Patient jd3 and/or family updated on plan of care and expected duration. Pain level reassessed. Patient is alert, oriented x 3, equal unlabored respirations, skin warm/dry/pink. Patient states feeling better. jd3
--- NOTE | 2020-07-22 15:31 | EDPHYS ---
Physician Documentation [facility] Name: Maritza Simon Age: 79 yrs Sex: Female : 1940 Arrival Date: 07/22/2020 Time: 11:57 Bed 16 Private MD: James Lew F ED Physician Ilia Perez HPI: 07/22 12:31 This 79 yrs old Female presents to ER via Wheelchair with complaints of pm1 Shortness Of Breath, Feet Swelling, Nausea. 12:31 The patient has shortness of breath at rest. Onset: The symptoms/episode began/occurred pm1 2 week(s) ago. Duration: The symptoms are continuous, No improvement despite antibiotic treatment. The patient's shortness of breath is aggravated by light activity, is alleviated by nothing. Associated signs and symptoms: Pertinent positives: productive cough, nausea, Pertinent negatives: chest pain, fever, vomiting, Diarrhea. Severity of symptoms: in the emergency department the symptoms are unchanged. The patient has experienced similar episodes in the past, several times. The patient has been recently seen by a physician: Dr. Reaves 1 week(s) ago, for the same complaint and prescribed levaquin. Historical: - Allergies: 12:28 NKA; jl7 - Home Meds: 13:41 Advair Diskus 250-50 mcg/dose Inhl dsdv 1 puff 2 times per day [Active]; amitriptyline jl7 25 mg Oral tab 1 tab once daily [Active]; atenolol 25 mg Oral tab 1 tab 2 times per day [Active]; calcium 600 mg daily [Active]; cetirizine 10 mg Oral tab [Active]; fluoxetine 20 mg Oral cap 1 cap once daily [Active]; furosemide 40 mg Oral tab 1 tab once daily [Active]; Maalox Plus Extra Strength Oral [Active]; omeprazole 20 mg Oral cpDR 2 caps 2 times per day [Active]; ProAir HFA 90 mcg/actuation inhalation HFAA as needed [Active]; simvastatin 10 mg Oral tab 1 tab once daily [Active]; spironolactone 25 mg Oral tab 1 tab once daily [Active]; tramadol 50 mg Oral tab 1 tab every 6 hours [Active]; multivitamin Oral cap daily [Active]; prednisone 10 mg oral tab [Active]; - PMHx: 12:28 BOWEL PERFORATION; CHF; chronic uti; COPD; GALLSTONES; GERD; Hyperlipidemia; jl7 Hypertension; - PSHx: 12:28 Colostomy; jl7 - Immunization history:: Adult Immunizations unknown. - Social history:: Smoking status: Patient/guardian denies using tobacco, the patient reports quitting approximately 18 years ago. ROS: 12:31 Constitutional: Negative for fever, chills, and weight loss, Eyes: Negative for injury, pm1 pain, redness, and discharge, ENT: Negative for injury, pain, and discharge, Neck: Negative for injury, pain, and swelling, Cardiovascular: Negative for chest pain, palpitations, and edema. 12:31 Abdomen/GI: Negative for abdominal pain, nausea, vomiting, diarrhea, and constipation, Back: Negative for injury and pain. 12:31 MS/Extremity: Negative for injury and deformity. 12:31 Neuro: Negative for headache, weakness, numbness, tingling, and seizure. 12:31 Respiratory: Positive for cough, shortness of breath. 12:31 Skin: Positive for fungal skin infection to bilateral feet that is being treated by a energy efficiency engineer. Exam: 12:31 Constitutional: This is a well developed, well nourished patient who is awake, alert, pm1 and in no acute distress. Head/Face: Normocephalic, atraumatic. Neck: Trachea midline, no thyromegaly or masses palpated, and no cervical lymphadenopathy. Supple, full range of motion without nuchal rigidity, or vertebral point tenderness. No Meningismus. Chest/axilla: Normal chest wall appearance and motion. Nontender with no deformity. No lesions are appreciated. Cardiovascular: Regular rate and rhythm with a normal S1 and S2. No gallops, murmurs, or rubs. Normal PMI, no JVD. No pulse deficits. Respiratory: Lungs have equal breath sounds bilaterally, clear to auscultation and percussion. No rales, rhonchi or wheezes noted. No increased work of breathing, no retractions or nasal flaring. Abdomen/GI: Soft, non-tender, with normal bowel sounds. No distension or tympany. No guarding or rebound. No evidence of tenderness throughout. Back: No spinal tenderness. No costovertebral tenderness. Full range of motion. 12:31 Skin: Appearance: normal except for affected area, consistent with tinea pedis, on the right foot and left foot. 12:31 Neuro: Exam negative for acute changes, Orientation: is normal, Mentation: is normal, Motor: is normal, moves all fours. Vital Signs: 12:24 BP 106 / 67; Pulse 69; Resp 29 S; Temp 98.3(O); Pulse Ox 100% on 3 lpm NC; Weight jl7 104.33 kg; Pain 9/10; 12:47 BP 123 / 75; Pulse 69; Resp 25 S; Pulse Ox 98% on 3 lpm NC; Pain 0/10; jd3 15:05 BP 118 / 61; Pulse 70; Resp 20 S; Pulse Ox 97% on R/A; jd3 15:35 BP 114 / 97; Pulse 87; Resp 20 S; Pulse Ox 97% on 2 lpm NC; jd3 16:13 BP 93 / 58; Pulse 86; Resp 19 S; Pulse Ox 97% on 2 lpm NC; jd3 MDM: 12:06 Patient medically screened. [facility] 14:58 Data reviewed: vital signs. Data interpreted: Pulse oximetry: on 3L(s) per nasal pm1 [place], is 98 %. Interpretation: history of COPD. Uses 2L at home. 15:26 Physician consultation: Kevin Reaves MD was contacted at 15:21, regarding consult, pm1 patient's condition, would like medications started, Discharge patient home with prednisone 10 mg PO BID for 1 week then prednisone 10 mg PO daily for 1 week. Patient will continue antibiotics that he has prescribed, in the emergency department to see patient at 15:21, Follow up next week with him. 07/22 12:21 Order name: Basic Metabolic Panel; Complete Time: 13:43 pm1 07/22 12:21 Order name: CBC with Diff; Complete Time: 13:43 pm1 07/22 12:21 Order name: LFT's; Complete Time: 13:43 pm1 07/22 12:21 Order name: Magnesium; Complete Time: 13:43 pm1 07/22 12:21 Order name: NT PRO-BNP; Complete Time: 13:43 pm1 07/22 12:21 Order name: PT-INR; Complete Time: 13:43 pm1 07/22 12:21 Order name: Troponin (emerg Dept Use Only); Complete Time: 13:43 pm1 07/22 12:21 Order name: XRAY Chest (1 view); Complete Time: 13:43 pm1 07/22 12:21 Order name: Blood Culture Adult (2) pm1 07/22 12:21 Order name: Flu; Complete Time: 13:43 pm1 07/22 12:21 Order name: COVID-19 pm1 07/22 12:21 Order name: Strep; Complete Time: 13:43 pm1 07/22 13:30 Order name: Throat Culture EDPR 07/22 12:21 Order name: Cardiac monitoring; Complete Time: 12:21 pm1 07/22 12:21 Order name: EKG - Nurse/Tech; Complete Time: 12:47 pm1 07/22 12:21 Order name: IV Saline Lock; Complete Time: 12:47 pm1 07/22 12:21 Order name: Labs collected and sent; Complete Time: 12:47 pm1 07/22 12:21 Order name: O2 Per Protocol; Complete Time: 12:21 pm1 07/22 12:21 Order name: O2 Sat Monitoring; Complete Time: 12:21 pm1 Administered Medications: 15:05 Drug: Decadron - Dexamethasone 10 mg Route: IVP; Site: left antecubital; jd3 16:42 Follow up: Response: No adverse reaction jd3 15:05 Drug: Xopenex (3) 1.25 mg Route: Inhalation; jd3 16:00 Follow up: Response: No adverse reaction jd3 Disposition: 07/23 12:03 Co-signature as Attending Physician, Ilia Perez MD I agree with the assessment and kayla plan of care. Disposition: 07/22/20 15:30 Discharged to Home. Impression: Chronic obstructive pulmonary disease, unspecified, Tinea pedis. - Condition is Stable. - Discharge Instructions: Athlete's Foot, Chronic Obstructive Pulmonary Disease. - Prescriptions for prednisone 10 mg Oral tablet - take 1 tablet by ORAL route every 12 hours for 7 days Take 1 tablet by ORAL route every 12 hours for 7 days, then take 1 tablet by ORAL once daily for 7 days; 21 tablet. - Medication Reconciliation Form, Thank You Letter, Antibiotic Education, Prescription Opioid Use form. - Follow up: Emergency Department; When: As needed; Reason: Worsening of condition. Follow up: Kevin Reaves MD; When: 1 week; Reason: Recheck today's complaints, Continuance of care, Re-evaluation by your physician. - Problem is new. - Symptoms have improved. Signatures: Dispatcher [employer] EDIlia Meier MD MD cha Marinas, Patrick, LUNG GUN OPERATOR LUNG GUN OPERATOR pm1 Ioana Pan, RN RN jl7 Ari Stroud, RN RN jd3 Corrections: (The following items were deleted from the chart) 07/22 15:28 15:26 Physician consultation: Kevin Reaves MD was contacted at 15:21, regarding pm1 consult, patient's condition, would like medications started, Discharge patient home with prednisone 10 mg PO BID for 1 week then prednisone 10 mg PO daily for 1 week, in the emergency department to see patient at 15:21, pm1 15:30 15:26 Physician consultation: Kevin Reaves MD was contacted at 15:21, regarding pm1 consult, patient's condition, would like medications started, Discharge patient home with prednisone 10 mg PO BID for 1 week then prednisone 10 mg PO daily for 1 week. Patient will continue antibiotics that he has prescribed, in the emergency department to see patient at 15:21, pm1 16:51 15:30 07/22/2020 15:30 Discharged to Home. Impression: Chronic obstructive pulmonary jd3 disease, unspecified; Tinea pedis. Condition is Stable. Forms are Medication Reconciliation Form, Thank You Letter, Antibiotic Education, Prescription Opioid Use. Follow up: Emergency Department; When: As needed; Reason: Worsening of condition. Follow up: Kevin Reaves; When: 1 week; Reason: Recheck today's complaints, Continuance of care, Re-evaluation by your physician. Problem is new. Symptoms have improved. pm1
--- NOTE | 2020-07-24 10:47 | EKG ---
Test Date: 2020-07-22 Test Time: 12:31:37 Career Development Counselor: RIGOBERTO MEASUREMENT RESULTS: Intervals: Rate: 70 IL: 234 QRSD: 140 QT: 384 QTc: 414 [place]: P: 59 IL: 234 QRS: -48 T: 65 INTERPRETIVE STATEMENTS: Sinus rhythm with sinus arrhythmia with 1st degree AV block Left axis deviation Left ventricular hypertrophy with QRS widening and repolarization abnormality Abnormal ECG Compared to ECG 08/12/2019 10:23:22 Atrial premature complex(es) no longer present Left bundle-branch block no longer present Electronically Signed On 07-24-20 10:43:54 CDT by Dejan Goode
[2020-07-27 16:31] VITALS: TEMP 98.3
[2020-07-27 16:34] VITALS: O2SAT 97
[2020-07-27 16:36] VITALS: BP 93/58
== END 2020-07-22 16:51 | disposition home or self-care (01) ==
LOC: ER 11:55
DX: J44.9 Chronic obstructive pulmonary disease, unspecified (principal); Z20.828 Contact with and (suspected) exposure to other viral communicable diseases; B35.3 Tinea pedis; I10 Essential (primary) hypertension; E78.5 Hyperlipidemia, unspecified; I50.9 Heart failure, unspecified
CPT/HCPCS: 93005; 87040 ×2; 87070; 85025; 80048; 36415; 83735; 85610; 80076; 87081; 84484; 83880; 87804 ×2; 71045; 96374; 99285; U0002; J1100

== ENCOUNTER 2021-03-14 13:59 | Emergency (ER) | payer OTHER, MEDICARE ==
--- OUTSIDE RECORDS SUMMARY | 2021-03-14 14:01 | XMS REPORT | Continuity of Care Document ---
:1940 Author Organization [facility] t Address [address] [place] [address] [place] [id number] Care Team Providers Name Role Phone Unavailable Unavailable Unavailable Problems This patient has no known problems. Allergies, Adverse Reactions, Alerts This patient has no known allergies or adverse reactions. Medications This patient has no known medications. Procedures This patient has no known procedures. Results This patient has no known results.
[2021-03-14] MEDS ORDERED: METHYLPREDNISOLONE 125 MG INJ ONE (15:31)
[2021-03-14] MEDS ORDERED: MAGNESIUM SULFATE 1 gm IVPB 1 GM/100 ML BAG IV ONE (15:32)
[2021-03-14] MEDS ORDERED: LEVALBUTEROL 1.25 MG/3 ML NEB ONE (15:32)
--- NOTE | 2021-03-14 15:32 | RAD REPORT ---
EXAM DESCRIPTION: [place] Single View03/14/2021 3:06 pm CLINICAL HISTORY: sob COMPARISON: 2019 FINDINGS: The lungs appear clear of acute infiltrate. The heart is moderately enlarged IMPRESSION: No acute abnormalities displayed
[2021-03-14 16:05] LABS: Absolute Lymphocytes (CBC) 0.3 K/uL (0.7-4.9); Basophils % 0.2 % (0-1.3); Hematocrit 36.5 % (36.0-45.0); Lymphocytes % 2.6 % (15.3-44.8); MPV 10.7 fL (7.6-11.3)
[2021-03-14 16:07] LABS: Protime INR 1.06
[2021-03-14 16:29] LABS: Albumin 3.1 g/dL (3.4-5.0); Bilirubin Direct 0.2 mg/dL (0-0.2); Bilirubin Total 0.5 mg/dL (0.2-1.0); Magnesium 2.4 mg/dL (1.8-2.4); Potassium 4.8 mmol/L (3.5-5.1); Protein, Total 6.3 g/dL (6.4-8.2); Troponin (Emerg Dept Use Only) 0.02 ng/mL (0.0-0.045)
[2021-03-14 16:46] LABS: Blood Morphology Comment NOT SEEN (NOT SEEN); Platelet Estimate ADEQ; White Blood Cell Scan OK (OK)
--- NOTE | 2021-03-14 17:08 | ER ---
Nurse's Notes [facility] Name: Maritza Simon Age: 80 yrs Sex: Female : 1940 Arrival Date: 03/14/2021 Time: 14:03 Bed 8 Private MD: James Lew F Diagnosis: Chronic obstructive pulmonary disease with (acute) exacerbation Presentation: 03/14 14:15 Chief complaint: Patient states: SOB for [address] Reaves, antibiotics and ll1 increasing her steroids didn't help. Has had dizziness for at least 1 week. Had a fall yesterday, and has mid back pain from the fall. No blood thinners. Coronavirus screen: Client denies travel out of the [place] in the last 14 days. cough unrelated to allergies, difficulty breathing, shortness of breath, Client presents with at least one sign or symptom that may indicate coronavirus-19. Standard/surgical mask placed on the client. Ebola Screen: Patient denies travel to an Ebola-affected area in the 21 days before illness onset. Initial Sepsis Screen: Does the patient meet any 2 criteria? No. Patient's initial sepsis screen is negative. Does the patient have a suspected source of infection? Yes: Productive cough/pneumonia. Risk Assessment: Do you want to hurt yourself or someone else? Patient reports no desire to harm self or others. Onset of symptoms was March 01, 2021. 14:15 Method Of Arrival: Wheelchair ll1 14:15 Acuity: TRACY 2 ll1 Triage Assessment: 15:07 Respiratory: sv Historical: - Allergies: 14:15 NKA; ll1 - Home Meds: 14:55 Advair Diskus 250-50 mcg/dose Inhl dsdv 1 puff 2 times per day [Active]; amitriptyline sv 25 mg Oral tab 1 tab nightly [Active]; atenolol 25 mg Oral tab 2 tabs once daily [Active]; Calcium carbonate +D3 600 mg/800IU daily [Active]; cetirizine 10 mg Oral tab once daily [Active]; docusate sodium 100 mg Oral cap 1 cap 2 times per day [Active]; fluoxetine 20 mg Oral cap 1 cap once daily [Active]; furosemide 40 mg Oral tab 1 tab once daily [Active]; Miralax 17 gram Oral pwpk 1 packet once daily [Active]; omeprazole 20 mg Oral cpDR 2 caps 2 times per day [Active]; ProAir HFA 90 mcg/actuation inhalation HFAA as needed [Active]; simvastatin 10 mg Oral tab 1 tab once daily [Active]; spironolactone 25 mg Oral tab 1 tab 2 times per day [Active]; tramadol 50 mg Oral tab 1 tab q6h prn [Active]; azalastine hcl nasal 137 mcg BID [Active]; prednisone 10 mg Oral tab once daily [Active]; Lactobacillus acidophilus oral cap 0.5 mg daily [Active]; multivitamin oral tab daily [Active]; Benadryl Oral [Active]; - PMHx: 14:15 BOWEL PERFORATION; COPD; GALLSTONES; chronic uti; GERD; CHF; Hyperlipidemia; ll1 Hypertension; - PSHx: 14:15 Colostomy; ll1 - Immunization history:: Client reports receiving the 2nd dose of the Covid vaccine, Flu vaccine is up to date. - Social history:: Smoking status: Patient/guardian denies using tobacco, the patient reports quitting approximately 16 years ago. Screenin:06 Abuse screen: Denies threats or abuse. Nutritional screening: No deficits noted. sv Tuberculosis screening: No symptoms or risk factors identified. Fall Risk Fall in past 12 months (25 points). Secondary diagnosis (15 points) impaired mobility, IV access (20 points). Ambulatory Aid- None/Bed Rest/Nurse Assist (0 pts). Gait- Normal/Bed Rest/Wheelchair (0 pts) Mental Status- Oriented to own ability (0 pts). Total Roberts Fall Scale indicates High Risk Score (45 or more points). Fall prevention measures have been instituted. Side Rails Up X 2 Frequent Obs/Assessments Occuring Family Present and informed to notify staff if the need to leave the bedside As available patient and family educated on Fall Prevention Program and Strategies. Assessment: 14:56 General: Appears distressed, Behavior is cooperative, restless. Pain: Complains of pain sv in posterior chest and back. Neuro: Level of Consciousness is awake, alert, obeys commands, Oriented to person, place, time, situation, Reports weakness patient states she fell onto her back yesterday but doesn't recall if she had a syncopal episode. Respiratory: Airway is patent Respiratory effort is even, labored, Respiratory pattern is symmetrical, tachypnea expiratory wheezes upon auscultation. GI: Colostomy site. EENT:. Musculoskeletal: Reports weakness in right leg and left leg. 15:50 Reassessment: Patient appears in no apparent distress at this time. No changes from ap3 previously documented assessment. Patient and/or family updated on plan of care and expected duration. Pain level reassessed. Patient is alert, oriented x 3, equal unlabored respirations, skin warm/dry/pink. Vital Signs: 14:15 BP 98 / 64; Pulse 82; Resp 28; Temp 97.8; Pulse Ox 96% on 3 lpm NC; Weight 102.97 kg; ll1 Height 5 ft. 9 in. (175.26 cm); Pain 10/10; 15:08 BP 80 / 57; Pulse 66; Pulse Ox 99% on 3 lpm NC; sv 16:10 BP 122 / 70; Pulse 68; Resp 26; Pulse Ox 3 lpm NC; ap3 17:08 BP 127 / 62; Pulse 71; Resp 21; Pulse Ox 98% ; ap3 14:15 Body Mass Index 33.52 (102.97 kg, 175.26 cm) ll1 ED Course: 14:03 Patient arrived in ED. mr 14:04 James Lew MD is Private Physician. mr 14:14 Arm band placed on. ll1 14:18 Triage completed. ll1 14:29 Chelsy Ahn, RN is Primary Nurse. sv 14:34 Joe Gonzales PA is PHCP. [facility] 14:34 Ho Glasgow MD is Attending Physician. [facility] 15:00 EKG done, by ED staff, reviewed by Joe ESCALANTE. sv 15:03 XRAY Chest (1 view) In Process Unspecified. EDMS 15:07 Patient has correct armband on for positive identification. Bed in low position. Call sv light in reach. Side rails up X2. Adult w/ patient. public service representative on. Pulse ox on. NIBP on. 15:50 Inserted saline lock: 22 gauge in right antecubital area, using aseptic technique. ap3 ,using aseptic technique. diffusics Blood collected. 16:09 Basic Metabolic Panel Sent. ap3 16:09 CBC with Diff Sent. ap3 17:06 James Lew MD is Referral Physician. jmm 17:26 No provider procedures requiring assistance completed. IV discontinued, intact, ap3 bleeding controlled, No redness/swelling at site. Pressure dressing applied. Administered Medications: 15:50 Drug: Xopenex (levalbuterol) (3) 1.25 mg Route: Inhalation; ap3 15:50 Drug: SOLU-Medrol (methylPrednisoLONE) 125 mg Route: IVP; Site: right antecubital; ap3 16:50 Follow up: Response: No adverse reaction ap3 15:50 Drug: Magnesium Sulfate 1 grams Route: IVPB; Infused Over: 1 hrs; Site: right ap3 antecubital; 16:50 Follow up: Response: No adverse reaction; IV Status: Completed infusion; IV Intake: ap3 100ml Intake: 16:50 IV: 100ml; Total: 100ml. ap3 Outcome: 17:07 Discharge ordered by . [facility] 17:25 Discharged to home via wheelchair, with caregiver ap3 17:25 Condition: stable 17:25 Discharge instructions given to patient, chief revenue officer, Instructed on discharge instructions, follow up and referral plans. Demonstrated understanding of instructions, follow-up care. 17:27 Patient left the ED. ap3 Signatures: Dispatcher [employer] Chelsy Adam RN RN sv Mickail, Joel, PA PA [facility] Emelyn Daniel Amanda, RN RN ap3 Dyan Del Real RN RN ll1
--- NOTE | 2021-03-14 17:08 | EDPHYS ---
Physician Documentation [facility] Name: Maritza Simon Age: 80 yrs Sex: Female : 1940 Arrival Date: 03/14/2021 Time: 14:03 Bed 8 Private MD: James Lew F ED Physician Ho Glasgow HPI: 03/14 14:47 This 80 yrs old Female presents to ER via Wheelchair with complaints of jmm Breathing Difficulty. 14:47 The patient has shortness of breath at rest. Onset: The symptoms/episode began/occurred jmm gradually, 4 day(s) ago. Duration: The symptoms are continuous, and are steadily getting worse. The patient's shortness of breath is aggravated by nothing, is alleviated by nothing. This is an 80 year old female with a history of COPD that presents to the ED with complaints of shortness of breath worsening since this past Thursday. Patient discontinued levaquin due to causing dizziness. Patient increased steroids but has not helped. Patient is normally on 3l NC at home, had to increase to 4. . Historical: - Allergies: 14:15 NKA; ll1 - Home Meds: 14:55 Advair Diskus 250-50 mcg/dose Inhl dsdv 1 puff 2 times per day [Active]; amitriptyline sv 25 mg Oral tab 1 tab nightly [Active]; atenolol 25 mg Oral tab 2 tabs once daily [Active]; Calcium carbonate +D3 600 mg/800IU daily [Active]; cetirizine 10 mg Oral tab once daily [Active]; docusate sodium 100 mg Oral cap 1 cap 2 times per day [Active]; fluoxetine 20 mg Oral cap 1 cap once daily [Active]; furosemide 40 mg Oral tab 1 tab once daily [Active]; Miralax 17 gram Oral pwpk 1 packet once daily [Active]; omeprazole 20 mg Oral cpDR 2 caps 2 times per day [Active]; ProAir HFA 90 mcg/actuation inhalation HFAA as needed [Active]; simvastatin 10 mg Oral tab 1 tab once daily [Active]; spironolactone 25 mg Oral tab 1 tab 2 times per day [Active]; tramadol 50 mg Oral tab 1 tab q6h prn [Active]; azalastine hcl nasal 137 mcg BID [Active]; prednisone 10 mg Oral tab once daily [Active]; Lactobacillus acidophilus oral cap 0.5 mg daily [Active]; multivitamin oral tab daily [Active]; Benadryl Oral [Active]; - PMHx: 14:15 BOWEL PERFORATION; COPD; GALLSTONES; chronic uti; GERD; CHF; Hyperlipidemia; ll1 Hypertension; - PSHx: 14:15 Colostomy; ll1 - Immunization history:: Client reports receiving the 2nd dose of the Covid vaccine, Flu vaccine is up to date. - Social history:: Smoking status: Patient/guardian denies using tobacco, the patient reports quitting approximately 16 years ago. ROS: 14:47 Constitutional: Negative for fever, chills, and weight loss, Cardiovascular: Negative jmm for chest pain, palpitations, and edema. 14:47 Respiratory: Positive for shortness of breath. 14:47 All other systems are negative. Exam: 14:47 Constitutional: This is a well developed, well nourished patient who is awake, alert, jmm and in no acute distress. Head/Face: atraumatic. Eyes: EOMI, no conjunctival erythema appreciated ENT: Moist Mucus Membranes Neck: Trachea midline, Supple Chest/axilla: Normal chest wall appearance and motion. Cardiovascular: Regular rate and rhythm. No edema appreciated 14:47 Back: Normal ROM Skin: General appearance color normal MS/ Extremity: Moves all extremities, no obvious deformities appreciated, no edema noted to the lower extremities Neuro: Awake and alert, normal gait Psych: Behavior is normal, Mood is normal, Patient is cooperative and pleasant 14:47 Respiratory: mild respiratory distress is noted, Respirations: labored breathing, that is mild, Breath sounds: decreased breath sounds, are located in both bases, Respiratory rate: 28 Vital Signs: 14:15 BP 98 / 64; Pulse 82; Resp 28; Temp 97.8; Pulse Ox 96% on 3 lpm NC; Weight 102.97 kg; ll1 Height 5 ft. 9 in. (175.26 cm); Pain 10/10; 15:08 BP 80 / 57; Pulse 66; Pulse Ox 99% on 3 lpm NC; sv 16:10 BP 122 / 70; Pulse 68; Resp 26; Pulse Ox 3 lpm NC; ap3 17:08 BP 127 / 62; Pulse 71; Resp 21; Pulse Ox 98% ; ap3 14:15 Body Mass Index 33.52 (102.97 kg, 175.26 cm) ll1 MDM: 14:47 Patient medically screened. [facility] 17:05 Data reviewed: vital signs, nurses notes. Counseling: I had a detailed discussion with oswaldo the patient and/or guardian regarding: the historical points, exam findings, and any diagnostic results supporting the discharge/admit diagnosis, lab results, radiology results, the need for outpatient follow up, to return to the emergency department if symptoms worsen or persist or if there are any questions or concerns that arise at home. Counseling: I had a detailed discussion with the patient and/or guardian regarding: the need for further work-up and treatment in the hospital. Refusal of service: The patient/guardian displays adequate decision making capability and despite a detailed discussion of alternatives, benefits, risks, and consequences refuses: Admission to the hospital for further work-up and treatment. ED course: Patient states feeling much better. . 03/14 14:51 Order name: Basic Metabolic Panel [facility] 03/14 14:51 Order name: CBC with Diff [facility] 03/14 14:51 Order name: LFT's; Complete Time: 16:33 [facility] 03/14 14:51 Order name: Magnesium; Complete Time: 16:33 [facility] 03/14 14:51 Order name: NT PRO-BNP; Complete Time: 16:33 [facility] 03/14 14:51 Order name: PT-INR; Complete Time: 16:20 [facility] 03/14 14:51 Order name: Troponin (emerg Dept Use Only); Complete Time: 16:33 [facility] 03/14 14:51 Order name: XRAY Chest (1 view); Complete Time: 15:34 [facility] 03/14 14:52 Order name: Basic Metabolic Panel; Complete Time: 16:33 [facility] 03/14 14:52 Order name: CBC with Automated Diff; Complete Time: 16:46 [facility] 03/14 16:46 Order name: CBC Smear Scan; Complete Time: 16:46 [facility] 03/14 14:51 Order name: EKG; Complete Time: 14:52 [facility] 03/14 14:51 Order name: Cardiac monitoring; Complete Time: 15:04 [facility] 03/14 14:51 Order name: EKG - Nurse/Tech; Complete Time: 16:09 [facility] 03/14 14:51 Order name: IV Saline Lock; Complete Time: 16:09 [facility] 03/14 14:51 Order name: Labs collected and sent; Complete Time: 16:09 [facility] 03/14 14:51 Order name: O2 Per Protocol; Complete Time: 15:04 [facility] 03/14 14:51 Order name: O2 Sat Monitoring; Complete Time: 15:04 [facility] Administered Medications: 15:50 Drug: Xopenex (levalbuterol) (3) 1.25 mg Route: Inhalation; ap3 15:50 Drug: SOLU-Medrol (methylPrednisoLONE) 125 mg Route: IVP; Site: right antecubital; ap3 16:50 Follow up: Response: No adverse reaction ap3 15:50 Drug: Magnesium Sulfate 1 grams Route: IVPB; Infused Over: 1 hrs; Site: right ap3 antecubital; 16:50 Follow up: Response: No adverse reaction; IV Status: Completed infusion; IV Intake: ap3 100ml Disposition: 03/15 06:49 Co-signature as Attending Physician, Ho Glasgow MD I agree with the assessment and kdr plan of care. Disposition: 03/14/21 17:07 Discharged to Home. Impression: Chronic obstructive pulmonary disease with (acute) exacerbation. - Condition is Stable. - Discharge Instructions: Chronic Obstructive Pulmonary Disease Exacerbation. - Medication Reconciliation Form, Thank You Letter, Antibiotic Education, Prescription Opioid Use form. - Follow up: James Lew MD; When: Tomorrow; Reason: Recheck today's complaints, Continuance of care, Re-evaluation by your physician. Signatures: Dispatcher [employer] Chelsy Adam RN RN sv Rittger, Kevin, MD MD kdr Mickail, Joel, PA PA Monik Hebert RN RN ap3 Dyan Del Real RN RN ll1 Corrections: (The following items were deleted from the chart) 03/14 17:27 17:07 03/14/2021 17:07 Discharged to Home. Impression: Chronic obstructive pulmonary ap3 disease with (acute) exacerbation. Condition is Stable. Forms are Medication Reconciliation Form, Thank You Letter, Antibiotic Education, Prescription Opioid Use. Follow up: James Lew; When: Tomorrow; Reason: Recheck today's complaints, Continuance of care, Re-evaluation by your physician. [email or web address]
[2021-03-14 17:41] VITALS: TEMP 97.8
[2021-03-14 17:44] VITALS: BP 127/62; O2SAT 98
== END 2021-03-14 17:27 | disposition home or self-care (01) ==
LOC: ER 13:59
DX: J44.1 Chronic obstructive pulmonary disease with (acute) exacerbation (principal); I10 Essential (primary) hypertension; I50.9 Heart failure, unspecified; E78.5 Hyperlipidemia, unspecified
CPT/HCPCS: 96365; 93005; 85025; 80048; 36415; 83735; 85610; 80076; 84484; 83880; 71045; 96375; 99285; J3475; J2930

== ENCOUNTER 2021-03-18 11:30 | Inpatient (IN) | payer OTHER, MEDICARE ==
--- OUTSIDE RECORDS SUMMARY | 2021-03-18 11:32 | XMS REPORT | Continuity of Care Document ---
:1940 Author Organization [facility] t Address [address] [place] [address] Dr. Jackson [address] [place] [id number] Care Team Providers Name Role Phone Unavailable Unavailable Unavailable Problems This patient has no known problems. Allergies, Adverse Reactions, Alerts This patient has no known allergies or adverse reactions. Medications This patient has no known medications. Procedures This patient has no known procedures. Results This patient has no known results.
[2021-03-18 12:48] LABS: Protime INR 1.03
[2021-03-18 12:57] LABS: Absolute Lymphocytes (CBC) 1.2 K/uL (0.7-4.9); Basophils % 0.1 % (0-1.3); Hematocrit 37.4 % (36.0-45.0); Lymphocytes % 11.7 % (15.3-44.8); MPV 10.6 fL (7.6-11.3); RBC Red Blood Cell Count 3.97 M/uL (3.86-4.86)
--- NOTE | 2021-03-18 13:00 | RAD REPORT ---
EXAM DESCRIPTION: US - Lower Extremity Artery Uni Ltd - 03/18/2021 12:50 pm CLINICAL HISTORY: cool ext Leg pain COMPARISON: No comparisons TECHNIQUE: Doppler evaluation of the right lower extremity arterial tree performed. Waveforms and ve locity values were obtained along with visual inspection. FINDINGS: Triphasic waveform pattern seen in the right common femoral and superficial femoral arteri es. Waveform pattern transition to a biphasic pattern in the popliteal artery with biphasic pattern c ontinuing to the posterior tibial and dorsalis pedis arteries. No occlusion or focal flow restricting lesion identified. No suspicious velocity values. IMPRESSION: Mild atherosclerotic changes are evident with no occlusion or focal flow restricting les ion identified in the right lower extremity.
--- NOTE | 2021-03-18 13:02 | RAD REPORT ---
EXAM DESCRIPTION: RAD - Chest Single View - 03/18/2021 12:53 pm CLINICAL HISTORY: COPD COMPARISON: March 14 TECHNIQUE: AP portable chest image was obtained 03/18/2021 12:53 pm . FINDINGS: No new mass or consolidation of the lung parenchyma. Interstitial pattern is prominent sim ilar or slightly increased from comparison. Cardiac silhouette remains enlarged. Fullness of the medi astinum has diminished. No measurable pleural effusion and no pneumothorax. No acute bony abnormality seen. No acute aortic findings suspected. IMPRESSION: No peripheral mass or consolidation. Slight increase in interstitial pattern over baseline prominence. A minimal interstitial edema or inf iltrate suspected.
[2021-03-18 13:05] LABS: Bilirubin Direct 0.2 mg/dL (0-0.2); Bilirubin Total 0.8 mg/dL (0.2-1.0); CKMB Creatine Kinase MB 1.3 ng/mL (0.3-3.6); Magnesium 2.2 mg/dL (1.8-2.4); Potassium 4.4 mmol/L (3.5-5.1); Protein, Total 6.2 g/dL (6.4-8.2); Troponin (Emerg Dept Use Only) 0.11 ng/mL (0.0-0.045)
--- NOTE | 2021-03-18 14:27 | EDPHYS ---
Physician Documentation [facility] Name: Maritza Simon Age: 80 yrs Sex: Female : 1940 Arrival Date: 03/18/2021 Time: 11:32 Bed 30 Private MD: ED Physician Gareth Grover HPI: 03/18 17:28 This 80 yrs old Female presents to ER via Wheelchair with complaints of Fall tw4 Injury, Nausea. 17:23 Details of fall: The patient fell from an upright position. tw4 17:28 The patient has shortness of breath at rest. Onset: The symptoms/episode began/occurred tw4 1 month(s) ago, and became persistent 2 days ago. Duration: The symptoms are continuous. The patient's shortness of breath has no apparent modifying factors. Onset: The symptoms/episode began/occurred today. Associated signs and symptoms: The patient has no apparent associated signs or symptoms. 17:28 Associated injuries: The patient sustained right upper thigh. Severity of symptoms: At tw4 their worst the symptoms were moderate. Severity of symptoms: At their worst the symptoms were moderate, in the emergency department the symptoms have resolved. The patient has not experienced similar symptoms in the past. Historical: - Allergies: 11:58 NKA; ll1 - PMHx: 11:58 Hyperlipidemia; COPD; CHF; GALLSTONES; GERD; Hypertension; chronic uti; BOWEL ll1 PERFORATION; - PSHx: 11:58 Colostomy; ll1 - Immunization history:: Client reports receiving the 2nd dose of the Covid vaccine, Flu vaccine is up to date. - Social history:: Smoking status: Patient/guardian denies using tobacco. ROS: 17:28 Constitutional: Negative for fever, chills, and weight loss, Eyes: Negative for injury, tw4 pain, redness, and discharge, Cardiovascular: Negative for chest pain, palpitations, and edema, Abdomen/GI: Negative for abdominal pain, nausea, vomiting, diarrhea, and constipation, Back: Negative for injury and pain, MS/Extremity: Negative for injury and deformity, Skin: Negative for injury, rash, and discoloration, Neuro: Negative for headache, weakness, numbness, tingling, and seizure. 17:28 Respiratory: Positive for shortness of breath. Exam: 17:28 Head/Face: Normocephalic, atraumatic. Eyes: Pupils equal round and reactive to light, tw4 extra-ocular motions intact. Lids and lashes normal. Conjunctiva and sclera are non-icteric and not injected. Cornea within normal limits. Periorbital areas with no swelling, redness, or edema. Cardiovascular: Regular rate and rhythm with a normal S1 and S2. No gallops, murmurs, or rubs. Normal PMI, no JVD. No pulse deficits. 17:28 Abdomen/GI: Soft, non-tender, with normal bowel sounds. No distension or tympany. No guarding or rebound. No evidence of tenderness throughout. Back: No spinal tenderness. No costovertebral tenderness. Full range of motion. MS/ Extremity: Pulses equal, no cyanosis. Neurovascular intact. Full, normal range of motion. Neuro: Awake and alert, GCS 15, oriented to person, place, time, and situation. Cranial nerves II-XII grossly intact. Motor strength 5/5 in all extremities. Sensory grossly intact. Cerebellar exam normal. Normal gait. 17:28 Constitutional: The patient appears in obvious distress, mildly distressed. 17:28 Respiratory: the patient does not display signs of respiratory distress, Respirations: accessory muscle usage, Breath sounds: decreased breath sounds, that are moderate, are located in both bases, wheezing: Vital Signs: 11:56 BP 109 / 53; Pulse 84; Resp 28; Temp 97.9; Pulse Ox 92% on 3 lpm NC; Weight 106.59 kg; ca1 Height 5 ft. 9 in. (175.26 cm); Pain 6/10; 12:38 BP 119 / 54; Pulse 75; Resp 18 S; Pulse Ox 95% on 3 lpm NC; ca1 13:11 BP 130 / 69; Pulse 70; Resp 25; Pulse Ox 95% on 3 lpm NC; ca1 14:12 BP 115 / 64; Pulse 74; Resp 22; Pulse Ox 93% on 3 lpm NC; ca1 15:15 BP 132 / 91; Pulse 81; Resp 18 S; Pulse Ox 97% on 3 lpm NC; ca1 16:10 BP 105 / 51; Pulse 95; Resp 22; Pulse Ox 99% on 3 lpm NC; ca1 17:06 BP 108 / 71; Pulse 97; Resp 21 S; Pulse Ox 100% on 3 lpm NC; ca1 18:15 BP 117 / 65; Pulse 90; Resp 26 S; Pulse Ox 100% on 3 lpm NC; ca1 11:56 Body Mass Index 34.70 (106.59 kg, 175.26 cm) ca1 MDM: 12:05 Patient medically screened. tw4 17:28 Antibiotic administration: Not indicated. Data reviewed: vital signs, nurses notes. tw Data interpreted: Pulse oximetry: Interpretation: normal. Counseling: I had a detailed discussion with the patient and/or guardian regarding: the historical points, exam findings, and any diagnostic results supporting the discharge/admit diagnosis, lab results. Physician consultation: James Lew MD regarding admission, to the telemetry unit. patient's condition, and will see patient. Admission orders: after a detailed discussion of the patient's condition and case, the admit orders are written by me. 03/18 12:12 Order name: Blood Culture Adult (2) 03/18 12:12 Order name: BMP; Complete Time: 13:40 03/18 13:40 Interpretation: Normal except: GFR 38; BUN 37; GLUC 114; CRE 1.35. 03/18 12:12 Order name: CBC with Diff; Complete Time: 13:40 03/18 13:40 Interpretation: Normal except: WBC 10.30; PLT 126; LYM% 11.7; DILLAN% 81.7; NEUT A 8.4. 03/18 12:12 Order name: Ckmb; Complete Time: 13:40 03/18 12:12 Order name: CPK; Complete Time: 13:40 03/18 12:12 Order name: Hepatic Function; Complete Time: 13:40 03/18 13:40 Interpretation: Normal except: AST 14; TP 6.2; ALB 3.0; A/G 0.9. 03/18 12:12 Order name: Lipase; Complete Time: 13:40 03/18 13:41 Interpretation: Within normal limits: LIP 46. 03/18 12:12 Order name: Magnesium; Complete Time: 13:40 03/18 12:12 Order name: NT PRO-BNP; Complete Time: 13:40 03/18 13:41 Interpretation: Abnormal: NT PRO-BNP 3355. 03/18 12:12 Order name: PT-INR; Complete Time: 13:40 03/18 12:12 Order name: Ptt, Activated; Complete Time: 13:40 03/18 12:12 Order name: Troponin (emerg Dept Use Only); Complete Time: 13:40 03/18 13:41 Interpretation: Abnormal: TROPED 0.11. 03/18 13:40 Order name: ABG [facility] 03/18 12:12 Order name: XRAY CXR (1 view); Complete Time: 13:40 03/18 12:13 Order name: Lower Extremity Artery Uni Ltd US; Complete Time: 13:39 03/18 13:33 Order name: Hip Right 2 View XRAY [facility] 03/18 13:40 Order name: Foot Right 3 View XRAY [facility] 03/18 15:06 Order name: SARS-COV-2 RT PCR [facility] 03/18 17:21 Order name: Basic Metabolic Panel [facility] 03/18 17:21 Order name: Basic Metabolic Panel [facility] 03/18 17:21 Order name: NT PRO-BNP [facility] 03/18 17:21 Order name: NT PRO-BNP [facility] 03/18 17:21 Order name: Troponin I [facility] 03/18 17:21 Order name: Troponin I [facility] 03/18 17:22 Order name: CBC with Automated Diff [facility] 03/18 17:22 Order name: CBC with Automated Diff [facility] 03/18 17:22 Order name: Troponin I [facility] 03/18 12:12 Order name: EKG; Complete Time: 12:13 03/18 12:12 Order name: Cardiac monitoring; Complete Time: 12:32 03/18 12:12 Order name: EKG - Nurse/Tech; Complete Time: 12:39 03/18 12:12 Order name: IV Saline Lock; Complete Time: 12:32 03/18 12:12 Order name: Labs collected and sent; Complete Time: 12:32 03/18 12:12 Order name: O2 Per Protocol; Complete Time: 12:32 03/18 12:12 Order name: O2 Sat Monitoring; Complete Time: 12:32 03/18 15:45 Order name: EKG; Complete Time: 15:46 [facility] 03/18 15:45 Order name: EKG - Nurse/Tech; Complete Time: 15:45 ca1 EC:37 Rate is 94 beats/min. Rhythm is regular with PACs. QRS [place] is Normal. Left axis tw4 deviation noted. TX interval is normal. QT interval is normal. T waves are Peaked in leads II, III, V2, V3, V4, V5. No ST changes noted. Clinical impression: NSR w/ Non-specific ST/T Changes. Interpreted by me. Reviewed by me. Administered Medications: 14:26 Drug: SOLU-Medrol (methylPrednisoLONE) 125 mg Route: IVP; Site: right antecubital; ca1 16:01 Follow up: Response: No adverse reaction; Marked relief of symptoms ca1 14:27 Drug: DuoNeb (albuterol 2.5 mg, ipratropium 0.5 mg) (3:1) (2.5 mg - 0.5 mg) 3 ml Route: ca1 Nebulizer; 16:01 Follow up: Response: No adverse reaction; Marked relief of symptoms ca1 Disposition: 03/18/21 14:26 Hospitalization ordered by James Lew for Inpatient Admission. Preliminary diagnosis are Chronic obstructive pulmonary disease with (acute) exacerbation, Contusion of right hip. - Bed requested for Telemetry/MedSurg (Inpatient). - Status is Inpatient Admission. fu - Condition is Stable. - Problem is an ongoing problem. - Symptoms are unchanged. Signatures: Dispatcher [employer] EDSD Mine Stallings, RN RN tl1 Bryon Huber RN RN fu Gareth Grover MD MD tw4 Aaron Portillo jp3 Divya Lama RN RN ca1 Dyan Del Real RN RN ll1 Corrections: (The following items were deleted from the chart) 14:27 14:10 CORONAVIRUS+LABMARANDA ordered. [facility] EDSD 17:33 17:28 Associated injuries: The patient sustained no obvious injury, tw4 tw4 18:02 14:26 Hospitalization Ordered by James Lew MD for Inpatient Admission. Preliminary jp3 diagnosis is Chronic obstructive pulmonary disease with (acute) exacerbation; Contusion of right hip. Bed requested for Telemetry/MedSurg (Inpatient). Status is Inpatient Admission. Condition is Stable. Problem is an ongoing problem. Symptoms are unchanged. tw4 19:52 18:02 03/18/2021 14:26 Hospitalization Ordered by James Lew MD for Inpatient tl1 Admission. Preliminary diagnosis is Chronic obstructive pulmonary disease with (acute) exacerbation; Contusion of right hip. Bed requested for [facility] ER HOLD. Status is Inpatient Admission. Condition is Stable. Problem is an ongoing problem. Symptoms are unchanged. jp3 20:40 19:52 03/18/2021 14:26 Hospitalization Ordered by James Lew MD for Inpatient fu Admission. Preliminary diagnosis is Chronic obstructive pulmonary disease with (acute) exacerbation; Contusion of right hip. Bed requested for Telemetry/MedSurg (Inpatient). Status is Inpatient Admission. Condition is Stable. Problem is an ongoing problem. Symptoms are unchanged. tl1
--- NOTE | 2021-03-18 14:27 | ER ---
Nurse's Notes [facility] Name: Maritza Simon Age: 80 yrs Sex: Female : 1940 Arrival Date: 03/18/2021 Time: 11:32 Bed 30 Private MD: Diagnosis: Chronic obstructive pulmonary disease with (acute) exacerbation;Contusion of right hip Presentation: 03/18 11:56 Chief complaint: Patient states: Fell last night (both feet felt asleep). Pain to R hip ll1 since. SOB/COPD flare-up for 1 week, no fever. Sent in for eval by Dr. Estrada. RLE toes purple and cold for 1 day. Coronavirus screen: Client denies travel out of the [place] in the last 14 days. cough unrelated to allergies, difficulty breathing, shortness of breath, Client presents with at least one sign or symptom that may indicate coronavirus-19. Standard/surgical mask placed on the client. Ebola Screen: Patient denies travel to an Ebola-affected area in the 21 days before illness onset. Initial Sepsis Screen: Does the patient meet any 2 criteria? No. Patient's initial sepsis screen is negative. Does the patient have a suspected source of infection? Yes: Productive cough/pneumonia. Risk Assessment: Do you want to hurt yourself or someone else? Patient reports no desire to harm self or others. Onset of symptoms was March 17, 2021. 11:56 Method Of Arrival: Wheelchair ll1 11:56 Acuity: TRACY 2 ll1 Historical: - Allergies: 11:58 NKA; ll1 - PMHx: 11:58 Hyperlipidemia; COPD; CHF; GALLSTONES; GERD; Hypertension; chronic uti; BOWEL ll1 PERFORATION; - PSHx: 11:58 Colostomy; ll1 - Immunization history:: Client reports receiving the 2nd dose of the Covid vaccine, Flu vaccine is up to date. - Social history:: Smoking status: Patient/guardian denies using tobacco. Screenin:10 Abuse screen: Denies threats or abuse. Denies injuries from another. Nutritional ca1 screening: No deficits noted. Tuberculosis screening: No symptoms or risk factors identified. Fall Risk Fall in past 12 months (25 points). Secondary diagnosis (15 points) impaired mobility, IV access (20 points). Gait- Weak (10 pts.). Total Roberts Fall Scale indicates High Risk Score (45 or more points). Fall prevention measures have been instituted. Side Rails Up X 2 Frequent Obs/Assessments Occuring Family Present and informed to notify staff if the need to leave the bedside As available patient and family educated on Fall Prevention Program and Strategies. Assessment: 12:10 General: Appears in no apparent distress. comfortable, Behavior is calm, cooperative, ca1 appropriate for age. Pain: Complains of pain in right lower back and right gluteus bisi Pain currently is 6 out of 10 on a pain scale. Neuro: Level of Consciousness is awake, alert, obeys commands, Oriented to person, place, time, situation. Cardiovascular: Heart tones S1 S2 present Capillary refill < 3 seconds Patient's skin is warm and dry. Rhythm is irregular. Respiratory: Reports shortness of breath 2 - 3 weeks Airway is patent Respiratory effort is even, unlabored, Respiratory pattern is regular, symmetrical, Breath sounds are clear bilaterally. GI: Abdomen is round non-distended, Colostomy site is clean and dry. Ostomy appliance is intact. Bowel sounds present X 4 quads. Abd is soft and non tender X 4 quads. : No signs and/or symptoms were reported regarding the genitourinary system. EENT: No signs and/or symptoms were reported regarding the EENT system. Derm: Skin is intact, is healthy with good turgor, Skin is pink, warm \T\ dry. Bruising that is dark purple, on right gluteus bisi. Musculoskeletal: Circulation, motion, and sensation intact. Capillary refill is > 3 seconds, in left toes. 13:11 Reassessment: Patient appears in no apparent distress at this time. Patient and/or ca1 family updated on plan of care and expected duration. Pain level reassessed. Patient is alert, oriented x 3, equal unlabored respirations, skin warm/dry/pink. 14:12 Reassessment: Patient appears in no apparent distress at this time. Patient and/or ca1 family updated on plan of care and expected duration. Pain level reassessed. Patient is alert, oriented x 3, equal unlabored respirations, skin warm/dry/pink. 15:15 Reassessment: Patient appears in no apparent distress at this time. Patient and/or ca1 family updated on plan of care and expected duration. Pain level reassessed. Patient is alert, oriented x 3, equal unlabored respirations, skin warm/dry/pink. 16:10 Reassessment: Patient appears in no apparent distress at this time. Patient and/or ca1 family updated on plan of care and expected duration. Pain level reassessed. Patient is alert, oriented x 3, equal unlabored respirations, skin warm/dry/pink. 17:28 Reassessment: Patient appears in no apparent distress at this time. Patient and/or ca1 family updated on plan of care and expected duration. Pain level reassessed. Patient is alert, oriented x 3, equal unlabored respirations, skin warm/dry/pink. 18:15 Reassessment: Patient appears in no apparent distress at this time. Patient and/or ca1 family updated on plan of care and expected duration. Pain level reassessed. Patient is alert, oriented x 3, equal unlabored respirations, skin warm/dry/pink. Vital Signs: 11:56 BP 109 / 53; Pulse 84; Resp 28; Temp 97.9; Pulse Ox 92% on 3 lpm NC; Weight 106.59 kg; ca1 Height 5 ft. 9 in. (175.26 cm); Pain 6/10; 12:38 BP 119 / 54; Pulse 75; Resp 18 S; Pulse Ox 95% on 3 lpm NC; ca1 13:11 BP 130 / 69; Pulse 70; Resp 25; Pulse Ox 95% on 3 lpm NC; ca1 14:12 BP 115 / 64; Pulse 74; Resp 22; Pulse Ox 93% on 3 lpm NC; ca1 15:15 BP 132 / 91; Pulse 81; Resp 18 S; Pulse Ox 97% on 3 lpm NC; ca1 16:10 BP 105 / 51; Pulse 95; Resp 22; Pulse Ox 99% on 3 lpm NC; ca1 17:06 BP 108 / 71; Pulse 97; Resp 21 S; Pulse Ox 100% on 3 lpm NC; ca1 18:15 BP 117 / 65; Pulse 90; Resp 26 S; Pulse Ox 100% on 3 lpm NC; ca1 11:56 Body Mass Index 34.70 (106.59 kg, 175.26 cm) ca1 ED Course: 11:32 Patient arrived in ED. ds1 11:58 Triage completed. ll1 11:59 Arm band placed on. ll1 12:03 Gareth Grover MD is Attending Physician. tw4 12:04 Divya Lama, RN is Primary Nurse. ca1 12:10 Patient has correct armband on for positive identification. Placed in gown. Bed in low ca1 position. Call light in reach. Side rails up X2. sports book writer on. Pulse ox on. NIBP on. Warm blanket given. 12:28 Inserted saline lock: 22 gauge in right antecubital area, using aseptic technique. ca1 Blood collected. 12:28 Initial lab(s) drawn, by me, sent to lab. First set of blood cultures drawn by me. ca1 12:35 EKG done, by ED staff, reviewed by Gareth Grover MD. jp3 12:51 Lower Extremity Artery Uni Ltd US In Process Unspecified. EDMS 12:53 XRAY CXR (1 view) In Process Unspecified. EDMS 14:11 Hip Right 2 View XRAY In Process Unspecified. EDMS 14:11 Foot Right 3 View XRAY In Process Unspecified. EDMS 14:24 James Lew MD is Hospitalizing Provider. tw4 16:00 No provider procedures requiring assistance completed. Patient admitted, IV remains in ca1 place. Administered Medications: 14:26 Drug: SOLU-Medrol (methylPrednisoLONE) 125 mg Route: IVP; Site: right antecubital; ca1 16:01 Follow up: Response: No adverse reaction; Marked relief of symptoms ca1 14:27 Drug: DuoNeb (albuterol 2.5 mg, ipratropium 0.5 mg) (3:1) (2.5 mg - 0.5 mg) 3 ml Route: ca1 Nebulizer; 16:01 Follow up: Response: No adverse reaction; Marked relief of symptoms ca1 Outcome: 14:26 Decision to Hospitalize by Provider. tw4 20:40 Patient left the ED. fu Signatures: Dispatcher [employer] EDOR Liseth Gayle ds1 Bryon Huber, Gareth Blanc RN, MD MD tw4 Aaron Portillo jp3 Divya Lama RN RN ca1 Dyan Del Real RN RN ll1 Corrections: (The following items were deleted from the chart) 12:36 12:10 Musculoskeletal: Circulation, motion, and sensation intact. Capillary refill < 3 ca1 seconds, ca1 12:39 12:10 Cardiovascular: Heart tones S1 S2 present Capillary refill < 3 seconds Patient's ca1 skin is warm and dry. ca1 16:45 15:15 BP 132 / 91; Pulse 81bpm; Resp 18bpm; Spontaneous; Pulse Ox 97% RA; ca1 ca1 18:30 11:56 BP 109 / 53; Pulse 84bpm; Resp 28bpm; Pulse Ox 92% 3 lpm Nasal Cannula; Temp ca1 97.9F; 106.59 kg; Height 5 ft. 9 in.; BMI: 34.7; Pain 6/10; ll1 18:40 12:10 Respiratory: Reports shortness of breath 2 - 3 weeks Airway is patent Respiratory ca1 effort is even, unlabored, Respiratory pattern is regular, symmetrical, Breath sounds are clear bilaterally. ca1 18:40 12:10 GI: Abdomen is round non-distended, Bowel sounds present X 4 quads. Abd is soft ca1 and non tender X 4 quads. ca1
--- NOTE | 2021-03-18 14:31 | RAD REPORT ---
EXAM DESCRIPTION: RAD - Hip Right 2 View - 03/18/2021 2:11 pm CLINICAL HISTORY: Right hip pain FINDINGS: No fracture or dislocation is seen. The bones are osteoporotic. If the patient continues to symptoms to suggest an occult fracture MRI would be recommended
--- NOTE | 2021-03-18 14:34 | RAD REPORT ---
EXAM DESCRIPTION: RAD - Foot Right 3 View - 03/18/2021 2:11 pm CLINICAL HISTORY: Right foot pain status post injury FINDINGS: No fracture or dislocation is seen
[2021-03-18 14:36] LABS: Arterial Blood Carboxyhemoglob 1.2 % (0-1.5); Blood Gas Oxyhemoglobin 96.1 % (94-97); Blood O2 Saturation 98.4 % (92-98.5)
[2021-03-18] MEDS ORDERED: METHYLPREDNISOLONE 125 MG INJ ONE (14:44)
[2021-03-18] MEDS ORDERED: ALBUTEROL 2.5 MG/3 ML NEB SOL ONE (14:44)
[2021-03-18] MEDS ORDERED: IPRATROPIUM BROM 0.5MG/2.5ML ONE (14:44)
[2021-03-18 18:30] VITALS: BMI 34.7
[2021-03-18] MEDS: TRAMADOL HCL 50 MG TAB PO PRN (22:03)
[2021-03-18] MEDS: AMITRIPTYLINE 25 MG TAB PO SCH (22:03)
[2021-03-18] MEDS: ATORVASTATIN 10 MG TAB PO SCH (22:03)
[2021-03-19] MEDS: METHYLPREDNISOLONE 40 MG INJ IV SCH ×3 (00:19→16:45)
[2021-03-19 05:31] LABS: Absolute Lymphocytes (CBC) 0.1 K/uL (0.7-4.9); Basophils % 0.2 % (0-1.3); Hematocrit 34.8 % (36.0-45.0); Lymphocytes % 1.3 % (15.3-44.8); MPV 10.4 fL (7.6-11.3); RBC Red Blood Cell Count 3.71 M/uL (3.86-4.86)
[2021-03-19 05:42] LABS: Potassium 5.5 mmol/L (3.5-5.1)
[2021-03-19] MEDS ORDERED: atenoloL 25 MG TAB PO SCH (09:00)
[2021-03-19 09:06] LABS: Blood Morphology Comment NOT SEEN (NOT SEEN); Platelet Estimate DECR; White Blood Cell Scan OK (OK)
[2021-03-19] MEDS: ENOXAPARIN 40 MG/0.4 ML SQ SCH (10:46)
[2021-03-19] MEDS: FLUOXETINE 20 MG CAP PO SCH (10:46)
[2021-03-19] MEDS: CALCIUM CARBONATE 500 MG TAB PO SCH (10:47)
[2021-03-19] MEDS: ASPIRIN EC 81 MG TAB PO SCH (10:47)
[2021-03-19] MEDS: CETIRIZINE HCL 5 MG TABLET PO SCH (10:47)
[2021-03-19] MEDS: TRAMADOL HCL 50 MG TAB PO PRN (10:51)
--- NOTE | 2021-03-19 12:16 | EKG ---
Test Date: 2021-03-18 Test Time: 12:33:50 Corporate Services Manager: HORACIO MEASUREMENT RESULTS: Intervals: Rate: 69 NM: 198 QRSD: 122 QT: 448 QTc: 480 [place]: P: 34 NM: 198 QRS: -46 T: 34 INTERPRETIVE STATEMENTS: Sinus rhythm with premature atrial complexes with aberrant conduction Left anterior fascicular block Left ventricular hypertrophy with QRS widening Abnormal ECG Compared to ECG 03/14/2021 15:17:00 Aberrant conduction of supraventricular beat(s) now present Left anterior fascicular block now present Left-axis deviation no longer present Electronically Signed On 03-19-21 12:13:33 CDT by Dejan Goode
--- NOTE | 2021-03-19 12:16 | EKG ---
Test Date: 2021-03-18 Test Time: 15:39:46 Orthodontist Small Business Owner: LORI MEASUREMENT RESULTS: Intervals: Rate: 94 IA: 196 QRSD: 132 QT: 382 QTc: 477 [place]: P: 82 IA: 196 QRS: -54 T: 96 INTERPRETIVE STATEMENTS: Sinus rhythm with premature atrial complexes with aberrant conduction Left axis deviation Left ventricular hypertrophy with QRS widening and repolarization abnormality Abnormal ECG Compared to ECG 03/18/2021 12:33:50 Left-axis deviation now present Early repolarization now present Left anterior fascicular block no longer present Electronically Signed On 03-19-21 12:13:30 CDT by Dejan Goode
[2021-03-19] MEDS: ALBUTEROL 2.5 MG/3 ML NEB SOL NEB PRN (15:37)
[2021-03-19] MEDS: IPRATROPIUM BROM 0.5MG/2.5ML NEB PRN (15:37)
[2021-03-19] MEDS ORDERED: FUROSEMIDE 20 MG TABLET PO PRN (17:20)
[2021-03-19] MEDS: ATORVASTATIN 10 MG TAB PO SCH (21:13)
[2021-03-19] MEDS: AMITRIPTYLINE 25 MG TAB PO SCH (21:13)
[2021-03-19] MEDS: DOCUSATE NA 100 MG CAP PO SCH (21:13)
[2021-03-19] MEDS: PANTOPRAZOLE 40MG TABLET PO SCH (21:13)
--- NOTE | 2021-03-19 23:07 | HP ---
Date of Admission: 03/18/2021 History Of Present Illness: The patient is -ezof-ooh female with history of COPD along wit h other multiple medical problems. She came to the emergency room because of history of fall. In th e past 2 weeks, she fell 2 times. She cannot say how her fall would be. She uses her home walker an d even with that she fell. She says she just feels weak and all of a sudden she falls. No head trau ma or loss of consciousness and she is not tripping. Every now and then, she may feel slight dizzine ss, but during the time before she was not. She also has COPD and her shortness of breath has been m ore or less the same, but she visited the emergency room. She was sent home for acute exacerbation a nd came back this time along with the same complaint of mild shortness of breath with a history of fa ll again. The patient had one-time diarrhea 3 days ago. Now, she has formed stools about 1-2 a day. She has no fever, no chills, and voiced no other complaints. Review of Systems: Cardiovascular: No complaints. Respiratory: As above. Genitourinary: No complaints. Skeletomuscular: The patient feels her right lower extremity, sometimes her right foot colder than t he left, has been going on with that for some time. Gastrointestinal: As above, otherwise no complaint. Neurological: No complaint. Past Medical History: 1.COPD. 2.Hypertension. 3.CHF. 4.Gastroesophageal reflux disease. 5.Bowel perforation history in the past. 6.Hyperlipidemia. Social History: No smoking, alcohol, or drug abuse history. Family History: Noncontributing. Medications: Albuterol 2 puffs q.i.d., Flonase, Benadryl 1 p.o. daily for allergy, Prozac 20 mg p.o. daily, Lasix 20 mg p.o. daily, omeprazole 20 mg p.o. b.i.d., prednisone 10 mg p.o. daily, amitriptyl ine 25 mg p.o. daily, atenolol 25 mg p.o. daily, simvastatin 20 mg p.o. daily. Allergies: NO KNOWN DRUG ALLERGIES. Physical Examination: General: The patient is sitting in no acute distress. Vital Signs: Blood pressure 140/73, pulse 79, temperature 97.2. Heart: Regular rate and rhythm. Chest: Mild crackles bilaterally that clear with coughing. Abdomen: Soft, benign. Bowel sounds are normoactive. Extremities: Right lower extremity is mildly colder than the left; however, she has good feeling sti ll by pressing the skin. Peripheral pulses are felt. She had no pitting edema. No cyanosis. Neurological: Alert, oriented, nonfocal. Grossly intact. Laboratory Data: ABGs on 32% O2 showed pCO2 of 43.2, pO2 of 116, and saturation of 96.1. EKG; sinus rhythm with premature complexes, atrial with aberrant conduction and left ventricular hypertrophy wi th QRS widening and left anterior fascicular block is no longer present. Right hip and foot x-ray sh owed no fracture, no acute pathology. Ultrasound on the right lower extremities showed mild atherosc lerotic changes. No evidence of occlusion in the right lower extremity, hemoglobin 11.4, hematocrit 34.8, platelets 118. Chemistry; potassium 5.5, chloride 109, BUN 39, creatinine 1.41, GFR at 36. BN P 3131. Troponin 0.11 and then 0.08 and 0.07. Assessment And Plan: 1.Chronic obstructive pulmonary disease exacerbation. The patient has been treated by Dr. Reaves as an outpatient. She was put on amoxicillin antibiotic as an outpatient. We will put the patient o n IV Rocephin 1 g daily. She has been put on oxygen protocol, beta-2 agonist breathing treatments, a nd ipratropium, and she has been put on Solu-Medrol 40 mg IV q.8 hours. 2.Likely small blood vessel disease in the right lower extremity. At this time, clinically stable. No intervention. 3.Mild increased troponin with the patient's chronic kidney failure and has no cardiovascular sympto ms. I think this is most likely secondary to chronic renal insufficiency and chronic obst ructive pulmonary disease exacerbation. 4.Chronic systolic congestive heart failure, clinically stable. 5.History of falls. We are going to have physical therapy to help with the patient ambulation here and may consider also home physical therapy to improve her ambulation and prevent falls. Look orders for details. MFS/MODL Voice ID: [id number]
[2021-03-20] MEDS: METHYLPREDNISOLONE 40 MG INJ IV SCH ×3 (00:34→16:27)
[2021-03-20 05:47] LABS: Absolute Lymphocytes (CBC) 0.2 K/uL (0.7-4.9); Basophils % 0.2 % (0-1.3); Hematocrit 34.5 % (36.0-45.0); Lymphocytes % 1.3 % (15.3-44.8); MPV 10.7 fL (7.6-11.3); RBC Red Blood Cell Count 3.65 M/uL (3.86-4.86)
[2021-03-20 06:24] LABS: Potassium 5.6 mmol/L (3.5-5.1)
[2021-03-20] MEDS ORDERED: SPIRONOLACTONE 25 MG TABLET PO SCH (09:00)
[2021-03-20] MEDS: IPRATROPIUM BROM 0.5MG/2.5ML NEB PRN ×2 (09:57→14:10)
[2021-03-20] MEDS: ALBUTEROL 2.5 MG/3 ML NEB SOL NEB PRN ×2 (09:57→14:10)
[2021-03-20] MEDS: PANTOPRAZOLE 40MG TABLET PO SCH (10:11)
[2021-03-20] MEDS: CALCIUM CARBONATE 500 MG TAB PO SCH (10:11)
[2021-03-20] MEDS: atenoloL 50 MG TAB PO SCH (10:11)
[2021-03-20] MEDS: FLUOXETINE 20 MG CAP PO SCH (10:12)
[2021-03-20] MEDS: CETIRIZINE HCL 5 MG TABLET PO SCH (10:12)
[2021-03-20] MEDS: ASPIRIN EC 81 MG TAB PO SCH (10:12)
[2021-03-20] MEDS: ENOXAPARIN 40 MG/0.4 ML SQ SCH (10:13)
[2021-03-20] MEDS: TRAMADOL HCL 50 MG TAB PO PRN (11:15)
[2021-03-20] MEDS ORDERED: SOD POLYSTYREN SUL 15 GM/60 ML UCUP PO ONE (11:16)
[2021-03-20] MEDS: CEFTRIAXONE/SWI 1gm 1 GM/10 ML SYR IV SCH (11:44)
--- NOTE | 2021-03-20 16:17 | PN ---
Subjective: The patient is doing well and has no new complaints. Objective: Vital Signs: Blood pressure 130/72, pulse 83, temperature 97.1, pulse oximetry at 96 on 3 L oxygen nasal prong. Heart: Regular rate and rhythm. Chest: Clear to auscultation. Abdomen: Soft, benign. Neurological: Alert, oriented, intact. Extremities: No edema. No cyanosis. Laboratory Data: Sodium 142, potassium 5.6, chloride 109, bicarb 29, BUN 50, creatinine 1.61. White cell count 15.7, hemoglobin 10.9, hematocrit 34.5, and platelets 135. Blood cultures, no growth to date. Assessment And Plan: 1.Chronic obstructive pulmonary disease exacerbation with a chest x-ray possible pneumonia versus co ngestive heart failure. The patient has been put on ceftriaxone 1 g IV daily. Her increase in white cell count is likely secondary to steroids from demargination, but we will follow this up. 2.Hyperkalemia. I have stopped the patient's spironolactone and we will follow up her potassium lev el. Also give her 15 g of Kayexalate. 3.Acute renal failure on top of chronic. Expect that will improve with rest diuresis and with contr olling. 4.History of falls. I have Physical Therapy to start working with the patient and may consider were on discharge having home physical therapy. 5.Anemia of chronic illness, clinically stable. 6.Rest of medical problems stable. Look orders for details. MFS/MODL Voice ID: [id number] Report ID: [id number]
[2021-03-20] MEDS: AMITRIPTYLINE 25 MG TAB PO SCH (20:38)
[2021-03-20] MEDS: ATORVASTATIN 10 MG TAB PO SCH (20:38)
[2021-03-20] MEDS: DOCUSATE NA 100 MG CAP PO SCH (20:38)
[2021-03-21] MEDS: METHYLPREDNISOLONE 40 MG INJ IV SCH ×2 (00:26→09:05)
[2021-03-21 04:45] VITALS: O2SAT 97
[2021-03-21 04:46] VITALS: TEMP 97
[2021-03-21 06:22] LABS: Absolute Lymphocytes (CBC) 0.2 K/uL (0.7-4.9); Basophils % 0.1 % (0-1.3); Hematocrit 32.5 % (36.0-45.0); MPV 10.3 fL (7.6-11.3); RBC Red Blood Cell Count 3.49 M/uL (3.86-4.86)
[2021-03-21 06:35] LABS: Potassium 5.4 mmol/L (3.5-5.1)
[2021-03-21 08:48] LABS: Platelet Estimate DECR; White Blood Cell Scan OK (OK)
[2021-03-21 08:49] LABS: Blood Morphology Comment NOT SEEN (NOT SEEN)
[2021-03-21] MEDS: CEFTRIAXONE/SWI 1gm 1 GM/10 ML SYR IV SCH (09:04)
[2021-03-21] MEDS: PANTOPRAZOLE 40MG TABLET PO SCH (09:04)
[2021-03-21] MEDS: atenoloL 50 MG TAB PO SCH (09:04)
[2021-03-21] MEDS: ASPIRIN EC 81 MG TAB PO SCH (09:05)
[2021-03-21] MEDS: CALCIUM CARBONATE 500 MG TAB PO SCH (09:05)
[2021-03-21] MEDS: FLUOXETINE 20 MG CAP PO SCH (09:05)
[2021-03-21] MEDS: CETIRIZINE HCL 5 MG TABLET PO SCH (09:05)
[2021-03-21] MEDS: ENOXAPARIN 40 MG/0.4 ML SQ SCH (09:05)
[2021-03-21] MEDS ORDERED: MAGNES/ALUMIN/SIMET 30ML UCUP PO PRN (11:38)
[2021-03-21 14:42] VITALS: BP 130/60
--- NOTE | 2021-03-24 00:20 | DS ---
Date of Discharge: 03/21/2021 Hospital Course: The patient is an -ngjl-ysp female with COPD, was admitted to the [facility] because of COPD exacerbation after she failed home treatment. The patient had shortness of breath, generalized weakness, and also she got history of falls in the past few weeks. The last one was on the day of her admission when she tripped and fell. The patient uses a walker for ambulation. The p atient had no chest pain and voiced no other complaint on her chest x-ray, which showed a possible in filtrate in the interstitial pattern. Past Medical History: As per admit note. Social History: As per admit note. Family History: As per admit note. Medications: As per admit note. Allergies: PER ADMIT NOTE. Physical Examination: As per admit note. Diagnostic Data: As per admit note. Hospital Course: The patient was admitted to the hospital, was put on beta-2 agonist breathing treat ments, oxygen protocol, IV steroids for her COPD exacerbation and IV Rocephin in case of pneumonia th at is developing. The patient had increased troponin from chronic kidney failure, had no cardiovascu lar symptoms, and had chronic systolic congestive heart failure. She was clinically stable. Now, we monitored her fluid status and labs and electrolytes. We started physical therapy for her history o f falls, to assist with using walker, and we will plan to do an outpatient physical therapy for OT an d PT. The patient during the hospitalization with the above plan and treatment did well. She nida ated with ambulation and she was ambulating well. Her baseline activity and breathing were back to h er baseline. She was feeling well and ambulating well. After few days of treatment, it was thought that the patient is stable enough to be discharged on Zithromax. She also was sent with her [facility] to home as an outpatient. At the same time, we noted that her potassium gets hig h to 5.5 and 5.6 on her home medication lisinopril. We stopped that medication and instructed the gera varner about that and she is to continue the rest of her home medicines from that standpoint. The lucas rodriguez will follow up with me. Look discharge orders for details. MFS/MODL Voice ID: [id number] Report ID: [id number]
== END 2021-03-21 16:35 | disposition home health service (06) | DRG 190 ==
LOC: ER 11:30 → ERHOLD 17:14 → 2ND 20:24
PROVIDERS: ADMIT Internal Medicine; ATTEND Internal Medicine
DX: J44.1 Chronic obstructive pulmonary disease with (acute) exacerbation (principal); J18.9 Pneumonia, unspecified organism; J96.21 Acute and chronic respiratory failure with hypoxia; I50.22 Chronic systolic (congestive) heart failure; N17.9 Acute kidney failure, unspecified; N18.5 Chronic kidney disease, stage 5; I13.2 Hypertensive heart and chronic kidney disease with heart failure and with stage 5 chronic kidney disease, or end stage renal disease; J44.0 Chronic obstructive pulmonary disease with (acute) lower respiratory infection; E87.5 Hyperkalemia; D63.8 Anemia in other chronic diseases classified elsewhere; E78.5 Hyperlipidemia, unspecified; K21.9 Gastro-esophageal reflux disease without esophagitis; S70.01XA Contusion of right hip, initial encounter; W18.30XA Fall on same level, unspecified, initial encounter; Z79.52 Long term (current) use of systemic steroids; Z79.899 Other long term (current) drug therapy; Z91.81 History of falling; Z20.822 Contact with and (suspected) exposure to COVID-19
CPT/HCPCS: 36415; 71045; 80048; 80076; 82550; 82553; 82805; 83690; 83735; 83880; 84132; 84484; 85025; 85610; 85730; 87040; 93005; 93926; 94760; 96374; 97116; 97161; 97530; 99285; J1650; J2920; J2930; U0003

== ENCOUNTER 2021-04-12 12:26 | Inpatient (IN) | payer OTHER, MEDICARE ==
--- OUTSIDE RECORDS SUMMARY | 2021-04-12 12:29 | XMS REPORT | Continuity of Care Document ---
:1940 Author Organization [facility] t Address [address] [place] [address] Dr. Jackson [address] [place] [id number] Care Team Providers Name Role Phone Unavailable Unavailable Unavailable Problems This patient has no known problems. Allergies, Adverse Reactions, Alerts This patient has no known allergies or adverse reactions. Medications This patient has no known medications. Procedures This patient has no known procedures. Results This patient has no known results.
[2021-04-12] MEDS ORDERED: FUROSEMIDE 40 MG/4 ML VIAL ONE (13:09)
[2021-04-12 13:21] LABS: Absolute Lymphocytes (CBC) 0.9 K/uL (0.7-4.9); Basophils % 0.5 % (0-1.3); Hematocrit 34.3 % (36.0-45.0); Lymphocytes % 10.5 % (15.3-44.8); MPV 10.6 fL (7.6-11.3); RBC Red Blood Cell Count 3.63 M/uL (3.86-4.86)
[2021-04-12 13:24] LABS: Protime INR 1.06
--- NOTE | 2021-04-12 13:35 | RAD REPORT ---
EXAM DESCRIPTION: [place] Single View04/12/2021 1:04 pm CLINICAL HISTORY: Shortness breath COMPARISON: February 2021 FINDINGS: The lungs appear clear of acute infiltrate. The heart is moderately enlarged. Aorta is tortuous/ectatic IMPRESSION: No acute abnormalities displayed
[2021-04-12 14:24] LABS: Urine Blood Negative (Negative); Urine Glucose Negative (Negative); Urine Protein Negative (Negative); Urine pH 5.5 (5.0-7.0)
[2021-04-12 14:27] LABS: Urine RBC <5 /HPF (NONE SEEN)
[2021-04-12 14:28] LABS: Urine Bacteria <20 /HPF (<20)
[2021-04-12 14:50] LABS: Albumin 3.2 g/dL (3.4-5.0); Bilirubin Direct 0.1 mg/dL (0-0.2); Bilirubin Total 0.5 mg/dL (0.2-1.0); Protein, Total 6.2 g/dL (6.4-8.2); Troponin (Emerg Dept Use Only) 0.07 ng/mL (0.0-0.045)
[2021-04-12 15:02] LABS: Magnesium 2.5 mg/dL (1.8-2.4); Potassium 4.3 mmol/L (3.5-5.1)
[2021-04-12] MEDS ORDERED: FENTANYL CITR 100 MCG/2 ML ONE (15:04)
--- NOTE | 2021-04-12 16:06 | EDPHYS ---
Physician Documentation [facility] Name: Maritza Simon Age: 80 yrs Sex: Female : 1940 Arrival Date: 04/12/2021 Time: 12:28 Bed 27 Private MD: ED Physician Ilia Perez HPI: 04/12 16:06 This 80 yrs old Female presents to ER via EMS with complaints of Shortness Of jr8 Breath, COPD Exacerbation. 16:06 The patient has shortness of breath at rest. Onset: The symptoms/episode began/occurred jr8 acutely, today. Duration: The symptoms are continuous. The patient's shortness of breath is aggravated by light activity, walking. Associated signs and symptoms: The patient has no apparent associated signs or symptoms. Severity of symptoms: At their worst the symptoms were moderate in the emergency department the symptoms are unchanged. The patient has experienced similar episodes in the past, a few times. The patient has not recently seen a physician. Patient stated that she became acute short of breath today. Home health called EMS who gave A\T\A treatments and solu-medrol prior to arrival. Patient improved at this time but still tachypneic. Denies fevers or chills . Historical: - Allergies: 12:41 NKA; zb - Home Meds: 12:41 Advair Diskus 250-50 mcg/dose Inhl dsdv 1 puff 2 times per day [Active]; amitriptyline zb 25 mg Oral tab 1 tab nightly [Active]; atenolol 25 mg Oral tab 2 tabs once daily [Active]; azalastine hcl nasal 137 mcg BID [Active]; cetirizine 10 mg Oral tab once daily [Active]; Calcium carbonate +D3 600 mg/800IU daily [Active]; docusate sodium 100 mg Oral cap 1 cap 2 times per day [Active]; furosemide 40 mg Oral tab 1 tab once daily [Active]; Lactobacillus acidophilus Oral cap 0.5 mg daily [Active]; Miralax 17 gram Oral pwpk 1 packet once daily [Active]; fluoxetine 20 mg Oral cap 1 cap once daily [Active]; ProAir HFA 90 mcg/actuation inhalation HFAA as needed [Active]; omeprazole 20 mg Oral cpDR 2 caps 2 times per day [Active]; multivitamin Oral tab daily [Active]; prednisone 10 mg Oral tab once daily [Active]; spironolactone 25 mg Oral tab 1 tab 2 times per day [Active]; simvastatin 10 mg Oral tab 1 tab once daily [Active]; tramadol 50 mg Oral tab 1 tab q6h prn [Active]; - 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 - Social history:: Smoking status: Patient/guardian denies using tobacco, but has a distant history of tobacco abuse. ROS: 16:06 Eyes: Negative for injury, pain, redness, and discharge, ENT: Negative for injury, jr8 pain, and discharge, Neck: Negative for injury, pain, and swelling, Cardiovascular: Negative for chest pain, palpitations, and edema, Abdomen/GI: Negative for abdominal pain, nausea, vomiting, diarrhea, and constipation, Back: Negative for injury and pain, MS/Extremity: Negative for injury and deformity, Skin: Negative for injury, rash, and discoloration, Neuro: Negative for headache, weakness, numbness, tingling, and seizure. 16:06 Respiratory: Positive for orthopnea, shortness of breath, wheezing. Exam: 16:06 Eyes: Pupils equal round and reactive to light, extra-ocular motions intact. Lids and jr8 lashes normal. Conjunctiva and sclera are non-icteric and not injected. Cornea within normal limits. Periorbital areas with no swelling, redness, or edema. ENT: Nares patent. No nasal discharge, no septal abnormalities noted. Tympanic membranes are normal and external auditory canals are clear. Oropharynx with no redness, swelling, or masses, exudates, or evidence of obstruction, uvula midline. Mucous membranes moist. Neck: Trachea midline, no thyromegaly or masses palpated, and no cervical lymphadenopathy. Supple, full range of motion without nuchal rigidity, or vertebral point tenderness. No Meningismus. Cardiovascular: Regular rate and rhythm with a normal S1 and S2. No gallops, murmurs, or rubs. Normal PMI, no JVD. No pulse deficits. Abdomen/GI: Soft, non-tender, with normal bowel sounds. No distension or tympany. No guarding or rebound. No evidence of tenderness throughout. Back: No spinal tenderness. No costovertebral tenderness. Full range of motion. Skin: Warm, dry with normal turgor. Normal color with no rashes, no lesions, and no evidence of cellulitis. MS/ Extremity: Pulses equal, no cyanosis. Neurovascular intact. Full, normal range of motion. Neuro: Awake and alert, GCS 15, oriented to person, place, time, and situation. Cranial nerves II-XII grossly intact. Motor strength 5/5 in all extremities. Sensory grossly intact. 16:06 Respiratory: the patient does not display signs of respiratory distress, Respirations: tachypnea, Breath sounds: rales, that are mild, are located in both bases. Vital Signs: 12:29 BP 92 / 61; Pulse 38; Resp 30; Temp 98.0; Pulse Ox 99% on 4 lpm NC; Height 5 ft. 3 in. zb (160.02 cm); 13:30 BP 116 / 59; Pulse 90; Resp 25; Pulse Ox 100% on 4 lpm NC; zb 14:30 BP 149 / 89; Pulse 82; Resp 26; Pulse Ox 100% on 4 lpm NC; zb 15:49 BP 118 / 83; Pulse 87; Resp 23; Pulse Ox 100% 4 lpm ; zb 17:27 BP 133 / 92; Pulse 94; Resp 30; Pulse Ox 100% 4 lpm ; zb 18:30 BP 156 / 98; Pulse 82; Resp 25; Pulse Ox 100% on R/A; zb 21:36 BP 123 / 72; Pulse 100; Resp 23; Pulse Ox 95% on 4 lpm NC; zb MDM: 12:34 Patient medically screened. jr8 16:00 Data reviewed: vital signs, nurses notes, lab test result(s), EKG, radiologic studies, jr8 plain films. Data interpreted: Pulse oximetry: on 3L(s) per nasal canula, is 100 %. Interpretation: normal. Counseling: I had a detailed discussion with the patient and/or guardian regarding: the historical points, exam findings, and any diagnostic results supporting the discharge/admit diagnosis, lab results, radiology results, the need for further work-up and treatment in the hospital. 04/12 12:35 Order name: Basic Metabolic Panel; Complete Time: 16:00 jr8 05/14 12:35 Order name: CBC with Diff; Complete Time: 13:41 04/12 12:35 Order name: LFT's; Complete Time: 16:00 04/12 12:35 Order name: Magnesium; Complete Time: 16:00 04/12 12:35 Order name: NT PRO-BNP; Complete Time: 16:00 04/12 12:35 Order name: PT-INR; Complete Time: 13:41 04/12 12:35 Order name: Troponin (emerg Dept Use Only); Complete Time: 16:00 04/12 12:35 Order name: XRAY Chest (1 view); Complete Time: 13:41 04/12 12:43 Order name: Urine Microscopic Only; Complete Time: 14:55 04/12 14:24 Order name: Urine Dipstick-Ancillary; Complete Time: 14:55 EDMS 04/12 19:16 Order name: SARS-COV-2 RT PCR; Complete Time: 19:20 EDMS 04/12 12:35 Order name: EKG; Complete Time: 12:35 04/12 12:35 Order name: Cardiac monitoring; Complete Time: 12:58 04/12 12:35 Order name: EKG - Nurse/Tech; Complete Time: 12:57 04/12 12:35 Order name: IV Saline Lock; Complete Time: 12:55 04/12 12:35 Order name: Labs collected and sent; Complete Time: 12:58 04/12 12:35 Order name: O2 Per Protocol; Complete Time: 12:56 04/12 12:35 Order name: O2 Sat Monitoring; Complete Time: 12:58 04/12 12:43 Order name: Straight Cath - Urine; Complete Time: 13:39 04/12 12:43 Order name: Urine Dipstick-Ancillary (obtain specimen); Complete Time: 14:24 jr8 Administered Medications: 12:49 CANCELLED (Duplicate Order): Lasix (furosemide) 40 mg IVP once; give over 2 minutes tr6 12:50 Drug: Lasix (furosemide) 40 mg Route: IVP; Site: left antecubital; tr6 14:23 Follow up: Response: No adverse reaction zb 14:40 Drug: fentaNYL (PF) 50 mcg {Note: RASS 0.} Route: IVP; Site: left antecubital; zb 15:30 Follow up: Response: No adverse reaction; Pain is decreased; RASS: Alert and Calm (0) zb Disposition: 04/13 07:47 Co-signature as Attending Physician, Ilia Perez MD I agree with the assessment and kayla plan of care. Disposition: 04/12/21 16:06 Hospitalization ordered by James Lew for Observation. Preliminary diagnosis are Acute combined systolic (congestive) and diastolic (congestive) heart failure, Chronic obstructive pulmonary disease with (acute) exacerbation. - Bed requested for Telemetry/MedSurg (observation). - Status is Observation. iw - Condition is Stable. - Problem is new. - Symptoms have improved. Signatures: Dispatcher [employer] EDOK Ilia Perez MD MD cha Williams, Irene, RN RN iw Roszak, Josh, PA PA jr8 Sujey Tavarez RN RN cg Botello, Elizabeth eb Brown, Zipporah, RN RN zb Ramnanan, Tiffany, RN RN tr6 Corrections: (The following items were deleted from the chart) 04/12 12:44 12:44 UA MICROSCOPIC+U.LAB.BRZ ordered. [facility] EDOK 12:49 12:43 Lasix (furosemide) 40 mg IVP once; give over 2 minutes ordered. [facility] tr6 18:28 17:47 CORONAVIRUS+MR.LAB.BRZ ordered. [facility] EDOK 18:28 16:06 Hospitalization Ordered by James Lew MD for Inpatient Admission. Preliminary eb diagnosis is Acute combined systolic (congestive) and diastolic (congestive) heart failure; Chronic obstructive pulmonary disease with (acute) exacerbation. Bed requested for Telemetry/MedSurg (Inpatient). Status is Inpatient Admission. Condition is Stable. Problem is new. Symptoms have improved. [facility] 18:47 18:28 04/12/2021 16:06 Hospitalization Ordered by James Lew MD for Inpatient jr8 Admission. Preliminary diagnosis is Acute combined systolic (congestive) and diastolic (congestive) heart failure; Chronic obstructive pulmonary disease with (acute) exacerbation. Bed requested for Telemetry/MedSurg (Inpatient). Status is Inpatient Admission. Condition is Stable. Problem is new. Symptoms have improved. eb 20:21 18:47 04/12/2021 16:06 Hospitalization Ordered by James Lew MD for Observation. cg Preliminary diagnosis is Acute combined systolic (congestive) and diastolic (congestive) heart failure; Chronic obstructive pulmonary disease with (acute) exacerbation. Bed requested for Telemetry/MedSurg (observation). Status is Observation. Condition is Stable. Problem is new. Symptoms have improved. jr8 22:31 20:21 04/12/2021 16:06 Hospitalization Ordered by James Lew MD for Observation. iw Preliminary diagnosis is Acute combined systolic (congestive) and diastolic (congestive) heart failure; Chronic obstructive pulmonary disease with (acute) exacerbation. Bed requested for Telemetry/MedSurg (observation). Status is Observation. Condition is Stable. Problem is new. Symptoms have improved. cg
--- NOTE | 2021-04-12 16:06 | ER ---
Nurse's Notes [facility] Name: Maritza Simon Age: 80 yrs Sex: Female : 1940 Arrival Date: 04/12/2021 Time: 12:28 Bed 27 Private MD: Diagnosis: Acute combined systolic (congestive) and diastolic (congestive) heart failure;Chronic obstructive pulmonary disease with (acute) exacerbation Presentation: 04/12 12:29 Chief complaint: EMS states: patient coming from home. Home Health Nurse called EMS due zb to patient increased shortness of breath, low oxygen saturations and low pulse rate. Pulse was in the 40's at home. Oxygen Sat was 89 on 4L of oxygen at home. EMS gave atrovent and Albuterol neb tx and Solu-Medrol. O2 increased to mid 90's. Coronavirus screen: At this time, the client does not indicate any symptoms associated with coronavirus-19. Ebola Screen: No symptoms or risks identified at this time. Initial Sepsis Screen: Does the patient meet any 2 criteria? No. Patient's initial sepsis screen is negative. Does the patient have a suspected source of infection? No. Patient's initial sepsis screen is negative. Risk Assessment: Do you want to hurt yourself or someone else? Patient reports no desire to harm self or others. Onset of symptoms was April 12, 2021. Care prior to arrival: Medication(s) given: Albuterol Neb x 1, Atrovent Neb x 1. 12:29 Acuity: TRACY 3 zb 12:29 Method Of Arrival: EMS: [facility] z Triage Assessment: 14:38 Respiratory: Onset: The symptoms/episode began/occurred at an unknown time. the patient zb has moderate shortness of breath. Historical: - Allergies: 12:41 NKA; zb - Home Meds: 12:41 Advair Diskus 250-50 mcg/dose Inhl dsdv 1 puff 2 times per day [Active]; amitriptyline zb 25 mg Oral tab 1 tab nightly [Active]; atenolol 25 mg Oral tab 2 tabs once daily [Active]; azalastine hcl nasal 137 mcg BID [Active]; cetirizine 10 mg Oral tab once daily [Active]; Calcium carbonate +D3 600 mg/800IU daily [Active]; docusate sodium 100 mg Oral cap 1 cap 2 times per day [Active]; furosemide 40 mg Oral tab 1 tab once daily [Active]; Lactobacillus acidophilus Oral cap 0.5 mg daily [Active]; Miralax 17 gram Oral pwpk 1 packet once daily [Active]; fluoxetine 20 mg Oral cap 1 cap once daily [Active]; ProAir HFA 90 mcg/actuation inhalation HFAA as needed [Active]; omeprazole 20 mg Oral cpDR 2 caps 2 times per day [Active]; multivitamin Oral tab daily [Active]; prednisone 10 mg Oral tab once daily [Active]; spironolactone 25 mg Oral tab 1 tab 2 times per day [Active]; simvastatin 10 mg Oral tab 1 tab once daily [Active]; tramadol 50 mg Oral tab 1 tab q6h prn [Active]; - 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 - Social history:: Smoking status: Patient/guardian denies using tobacco, but has a distant history of tobacco abuse. Screenin:37 Abuse screen: Denies threats or abuse. Denies injuries from another. Nutritional zb screening: No deficits noted. Tuberculosis screening: No symptoms or risk factors identified. Fall Risk Fall in past 12 months (25 points). No secondary diagnosis (0 pts). IV access (20 points). Ambulatory Aid- Crutches/Cane/Walker (15 pts). Gait- Weak (10 pts.). Mental Status- Oriented to own ability (0 pts). Total Roberts Fall Scale indicates High Risk Score (45 or more points). Fall prevention measures have been instituted. Side Rails Up X 2 Placed Close to Nursing Station Frequent Obs/Assessments Occuring Family Present and informed to notify staff if the need to leave the bedside As available patient and family educated on Fall Prevention Program and Strategies. Assessment: 12:50 General: Appears uncomfortable, Behavior is cooperative, anxious. Pain: Complains of zb pain in back Pain does not radiate. Pain currently is 8 out of 10 on a pain scale. Neuro: Level of Consciousness is awake, alert, obeys commands, Oriented to person, place, time, situation, Moves all extremities. Cardiovascular: Reports fatigue, nausea, shortness of breath, Patient's skin is warm and dry. Rhythm is sinus bradycardia with 1st degree heart block. Respiratory: Airway is patent Respiratory effort is shallow, Respiratory pattern is tachypnea Breath sounds are diminished bilaterally. GI: Abdomen is round obese, Colostomy site is clean and dry. Ostomy appliance is intact. Bowel sounds present X 4 quads. Reports nausea, Patient currently denies diarrhea. : Urine is clear. Derm: Skin is fragile, is thin, Skin is dry, Skin is normal. Musculoskeletal: Circulation, motion, and sensation intact. Range of motion: intact in all extremities. 13:30 Reassessment: Patient appears in no apparent distress at this time. Patient and/or zb family updated on plan of care and expected duration. Pain level reassessed. Patient repositioned up in bed higher. 14:30 Reassessment: Patient appears in no apparent distress at this time. Patient and/or zb family updated on plan of care and expected duration. Pain level reassessed. patient stated that her back was hurt a lot rated pain 8/10. notified ecp. 15:55 Reassessment: Patient appears in no apparent distress at this time. Patient and/or zb family updated on plan of care and expected duration. Pain level reassessed. family remains at bedside. pain has decreased. okay'ed by ecp to give patient water. 16:30 Reassessment: Patient appears in no apparent distress at this time. Patient and/or zb family updated on plan of care and expected duration. Pain level reassessed. 18:00 Reassessment: Patient appears in no apparent distress at this time. Patient and/or zb family updated on plan of care and expected duration. Pain level reassessed. family remains at bedside. patient repositioned and clean, new grown applied, new sheets applied, and diaper changed and patient cleaned. 18:30 Reassessment: patient states she would like a patterson instead of trying to use the zb restroom, patient noted to have difficulty breathing when attempting to turn. 18:47 Reassessment: Patient appears in no apparent distress at this time. Patient and/or zb family updated on plan of care and expected duration. Pain level reassessed. family at bedside. patient pillow applied to patient. 19:30 Reassessment: Patient appears in no apparent distress at this time. Patient and/or zb family updated on plan of care and expected duration. Pain level reassessed. received verbal order for patterson per patient request from AVA Cortez and dr. alvarado. 20:20 Reassessment: Patient appears in no apparent distress at this time. Patient and/or zb family updated on plan of care and expected duration. Pain level reassessed. patient repostiton, diaper applied, bed cleaned and changed. family remains at bedside. notified patient that bed number has been issued and report is waiting to be called. 20:30 Reassessment: attempted to call report. unable at this time. zb 21:15 Reassessment: Patient appears in no apparent distress at this time. Patient and/or zb family updated on plan of care and expected duration. Pain level reassessed. patient remains on 4L oxygen NC. appears comfortable at this time. awaiting a room. will continue to [facility]. 22:08 Reassessment: report given to TRANG Luque. zb Vital Signs: 12:29 BP 92 / 61; Pulse 38; Resp 30; Temp 98.0; Pulse Ox 99% on 4 lpm NC; Height 5 ft. 3 in. zb (160.02 cm); 13:30 BP 116 / 59; Pulse 90; Resp 25; Pulse Ox 100% on 4 lpm NC; zb 14:30 BP 149 / 89; Pulse 82; Resp 26; Pulse Ox 100% on 4 lpm NC; zb 15:49 BP 118 / 83; Pulse 87; Resp 23; Pulse Ox 100% 4 lpm ; zb 17:27 BP 133 / 92; Pulse 94; Resp 30; Pulse Ox 100% 4 lpm ; zb 18:30 BP 156 / 98; Pulse 82; Resp 25; Pulse Ox 100% on R/A; zb 21:36 BP 123 / 72; Pulse 100; Resp 23; Pulse Ox 95% on 4 lpm NC; zb ED Course: 12:28 Patient arrived in ED. zb 12:34 [facility] jr8 12:34 Ilia Perez MD is Attending Physician. jr8 12:35 Triage completed. zb 12:45 Patient has correct armband on for positive identification. Placed in gown. Bed in low zb position. Call light in reach. surveillance monitor on. Pulse ox on. NIBP on. Door closed. Noise minimized. Warm blanket given. 12:50 Arm band placed on. zb 12:50 Maintain EMS IV. Dressing intact. Good blood return noted. Site clean \T\ dry. Gauge \T\ zb site: 20 LAC . 12:57 Raisa Randle, TRANG is Primary Nurse. zb 13:04 XRAY Chest (1 view) In Process Unspecified. EDMS 14:00 Straight cath inserted, using sterile technique, 18 Fr. Specimen obtained. Returned zb clear yellow urine. Patient tolerated well. 16:05 James Alvarado MD is Hospitalizing Provider. jr8 20:15 Patterson cath inserted, using sterile technique, 16 Fr., by wy, balloon inflated, to zb gravity drainage, urine specimen collected. 22:09 No provider procedures requiring assistance completed. Patient admitted, IV remains in zb place. Administered Medications: 12:49 CANCELLED (Duplicate Order): Lasix (furosemide) 40 mg IVP once; give over 2 minutes tr6 12:50 Drug: Lasix (furosemide) 40 mg Route: IVP; Site: left antecubital; tr6 14:23 Follow up: Response: No adverse reaction zb 14:40 Drug: fentaNYL (PF) 50 mcg {Note: RASS 0.} Route: IVP; Site: left antecubital; zb 15:30 Follow up: Response: No adverse reaction; Pain is decreased; RASS: Alert and Calm (0) zb Output: 14:00 Urine: 400ml (Straight Cath); Total: 400ml. zb Outcome: 16:06 Decision to Hospitalize by Provider. jr8 22:09 Admitted to Med/surg accompanied by tech, via wheelchair, room 210, with oxygen, on zb monitor, Report called to TRANG Luque 22:09 Condition: stable 22:09 Instructed on the need for admit. 22:31 Patient left the ED. iw Signatures: Dispatcher [employer] EDSerene Gomez RN RN iw Roszak, Josh, PA PA jr8 Raisa Randle RN RN zb Ramnanan, Tiffany, RN RN tr6
[2021-04-12] MEDS ORDERED: HOME MED 1 EA UNK (Simvastatin [Simvastatin] 20 MG Tablet) PO SCH (21:00)
[2021-04-12] MEDS ORDERED: HOME MED 1 EA UNK (Omeprazole [Omeprazole] 20 MG Capsule.Dr) PO SCH (21:00)
[2021-04-12] MEDS ORDERED: MORPHINE 2 MG/ML SYR IV PRN (22:19)
[2021-04-12 22:43] VITALS: BMI 35.3
[2021-04-12] MEDS: PANTOPRAZOLE 40MG TABLET PO SCH (23:24)
[2021-04-12] MEDS: AMITRIPTYLINE 25 MG TAB PO SCH (23:24)
[2021-04-12] MEDS: ATORVASTATIN 10 MG TAB PO SCH (23:25)
[2021-04-13] MEDS: METHYLPREDNISOLONE 40 MG INJ IV SCH ×3 (00:15→16:27)
[2021-04-13 03:56] LABS: Absolute Lymphocytes (CBC) 0.2 K/uL (0.7-4.9); Basophils % 0.2 % (0-1.3); Hematocrit 33.5 % (36.0-45.0); Lymphocytes % 2.9 % (15.3-44.8); MPV 10.8 fL (7.6-11.3); RBC Red Blood Cell Count 3.57 M/uL (3.86-4.86)
[2021-04-13 04:12] LABS: Potassium 5.1 mmol/L (3.5-5.1)
[2021-04-13] MEDS ORDERED: PNEUMOCOCCAL VACCINE 0.5 ML IMVAC ONE (06:00)
[2021-04-13] MEDS: ONDANSETRON 4 MG/2 ML VIAL IV PRN (08:20)
[2021-04-13] MEDS: CALCIUM CARBONATE 500 MG TAB PO SCH (08:21)
[2021-04-13] MEDS: FLUOXETINE 20 MG CAP PO SCH (08:21)
[2021-04-13] MEDS: PANTOPRAZOLE 40MG TABLET PO SCH ×2 (08:21→16:28)
[2021-04-13] MEDS ORDERED: HOME MED 1 EA UNK (Calcium Carbonate [Calcium] 600 MG Tablet) PO SCH (09:00)
[2021-04-13] MEDS ORDERED: FUROSEMIDE 20 MG/ 2ML VIAL IV SCH (09:00)
[2021-04-13] MEDS ORDERED: atenoloL 50 MG TAB PO SCH (09:00)
[2021-04-13] MEDS: D5 0.2 NS 1,000 ML IV SCH (12:43)
[2021-04-13] MEDS: ENOXAPARIN 40 MG/0.4 ML SQ SCH (16:28)
--- NOTE | 2021-04-13 16:50 | HP ---
Date of Admission: 04/13/2021 The patient is an -[id number] female with multiple medical problems including chronic systoli c congestive heart failure and COPD. She is oxygen dependent on that. She has been having feeling f atigued, tired, with gradual increased shortness of breath over the past 1 to 2 weeks. She also at h ome started feeling dizzy and nauseated and she reported to me that her pulse at home has dropped katharine n to 42 while she was feeling that. She had no chest pain. The patient had no fever or chills. She had chronic nausea but no vomiting. The patient also has chronic low back pain in the thoracic and lumbar spinal areas from compression fracture for which she was following with Pain Management. The patient voiced no other complaints. Review of Systems: Cardiovascular: As above. Respiratory: As above. Skeletomuscular: As above. Gastrointestinal: Nausea but no vomiting. No constipation. No diarrhea. Neurological examination: No complaint. Genitourinary: No complaint. Past Medical History: 1.As mentioned, chronic systolic congestive heart failure. 2.COPD, oxygen dependent. 3.Hypertension. 4.Chronic back pain as mentioned above. 5.Gastroesophageal reflux disease. 6.Hyperlipidemia. 7.The patient had bowel perforation history in the past. Social History: No smoking, alcohol, or drug abuse history. Family History: Noncontributing. Medications: Zyrtec 10 mg p.o. daily, ProAir 2 puffs q.i.d., Tenormin 50 mg p.o. daily, amitriptylin e 25 mg p.o. daily, Prozac 20 mg p.o. daily, furosemide 20 mg p.o. daily, Deltasone 10 mg p.o. daily, MiraLAX 0.25 mg p.o. daily, Ultram 50 mg p.o. q.6 hours p.r.n., multivitamins, spironolactone 50 mg p.o. daily, calcium 600 mg p.o. daily, and simvastatin 20 mg p.o. daily. Allergies: NO KNOWN DRUG ALLERGIES. Physical Examination: Vital Signs: Blood pressure 118/60, pulse 78, temperature 97.1, pulse oximetry on 2 L oxygen nasal p ignacio is 99. Heart: Regular rate and rhythm. Chest: Clear to auscultation. Abdomen: Soft, benign. Neurologic: Alert, oriented x4. Grossly intact. Laboratory Data: Chest x-ray, no acute pathology. CBC; white cell count of 6.9, hemoglobin 10.7, he matocrit 33.5, and platelets 130. Chemistry; sodium went from 146 up to 147, potassium 5.1, chloride 110, CO2 34, BUN 40, creatinine 1.55, GFR of 32, glucose 144. BNP 12,257. Assessment And Plan: 1.I think patient's gradual increase in shortness of breath is more related to her chronic obstructi ve pulmonary disease other than congestive heart failure. We will put the patient on breathing treat ments, IV steroids. Continue her home medicines. 2.Dizziness, fatigue with a history of bradycardia. We will stop the patient's Tenormin. 3.Mild increase in troponin and increase in BNP. I think we [place] I physical examination or the history of the patient that she is wet. She has no edema. Her lungs and the chest x-ray clear. I think I will go ahead and ask Cardiology consu lt on that. 4.Anemia of chronic illness. We will follow up CBC. 5.Chronic renal insufficiency with worsening because of her condition right now and also with hypern atremia, increased sodium. I think, we will put the patient on D5 0.2 normal saline hypotonic IV flu id and I will stop her IV Lasix and just put her on her regular Lasix 20 mg p.o. daily and we will fo llow up her chemistry. 6.Fasting blood sugar of 144. I will check an A1c. 7.We will keep the patient on her pain medicines for her compression fractures on her back. Look or ders for details. MFS/MODL Voice ID: [id number]
[2021-04-13] MEDS: TRAMADOL HCL 50 MG TAB PO PRN (18:36)
--- NOTE | 2021-04-13 20:59 | CON ---
Date of Consultation: 04/13/2021 Reason For Consultation: Shortness of breath and chest tightness. History Of Present Illness: This is an 80-year-old female who presented to the emergency room due to shortness of breath and then feeling lightheaded. She apparently has an issue with her heart rate. It is going slow sometimes and had 2 syncopal episodes in the past. She is known to have COPD and h aving some chest tightness with activities. She follows with Dr. Goode, who recommended a possible heart catheterization in the near future. Past Medical History: CHF, COPD, acid reflex, dyslipidemia, hypertension, obesity. Medications: Refer to reconciliation sheet for detailed list. Allergies: NO KNOWN DRUG ALLERGIES. Family History: No premature coronary artery disease or cancer. Social History: She does not smoke or drink. Does not use any drugs. Review of Systems: All systems reviewed were negative except for what is mentioned in the HPI. Physical Examination: Vital Signs: Temperature is 97.5, pulse is 97, breathing at 20, blood pressure 127/58, saturation is 100%. General: Pleasant elderly female, in no distress. Head and Neck: Pupils are reactive to light. Intact eye movements. No JVD. No cervical adenopathy . Neck: Supple. Thyroid is not enlarged. Lungs: Faint crackles in both bases. No accessory muscle use or muscle retraction. Heart: Regular with no extra sounds. Abdomen: Soft, nontender. Bowel sounds positive. No organomegaly. No masses or hernia. No rigidi ty or rebound. Extremities: No clubbing or cyanosis. Intact pulses. Skin: No rashes. Neurologic: Alert, awake, oriented x3. No acute focal deficits appreciated. Investigations: Troponin peaked at 0.11, now down to 0.09. Creatinine down to 1.55 from 1.61. Hemo globin 10.7. The chest x-ray, no acute abnormalities. Assessment/plan: 1.Shortness of breath due to a combination of chronic obstructive pulmonary disease and possibly con gestive heart failure symptoms as well. She received a dose of IV Lasix. I recommend to continue La six 40 mg IV q.12 hours. Carefully monitor BUN and creatinine. Also obtain an echocardiogram. 2.Elevated troponin suggestive of [id number] myocardial infarction. Start on heparin and aspi rin and recommend coronary angiogram to be done early next week. SR/MODL Voice ID: [id number] Report ID: [id number]
[2021-04-13] MEDS: AMITRIPTYLINE 25 MG TAB PO SCH (21:09)
[2021-04-13] MEDS: ATORVASTATIN 10 MG TAB PO SCH (21:09)
[2021-04-14] MEDS: METHYLPREDNISOLONE 40 MG INJ IV SCH ×3 (00:28→16:34)
[2021-04-14] MEDS: D5 0.2 NS 1,000 ML IV SCH (02:32)
[2021-04-14 05:08] LABS: Absolute Lymphocytes (CBC) 0.2 K/uL (0.7-4.9); Basophils % 0.1 % (0-1.3); Hematocrit 33.1 % (36.0-45.0); Lymphocytes % 2.1 % (15.3-44.8); MPV 10.9 fL (7.6-11.3); RBC Red Blood Cell Count 3.53 M/uL (3.86-4.86)
[2021-04-14 05:21] LABS: Potassium 4.4 mmol/L (3.5-5.1)
[2021-04-14] MEDS: FLUOXETINE 20 MG CAP PO SCH (10:37)
[2021-04-14] MEDS: CALCIUM CARBONATE 500 MG TAB PO SCH (10:37)
[2021-04-14] MEDS: PANTOPRAZOLE 40MG TABLET PO SCH ×2 (10:37→16:34)
[2021-04-14] MEDS: FUROSEMIDE 40 MG/4 ML VIAL IV SCH (12:08)
[2021-04-14] MEDS: ENOXAPARIN 40 MG/0.4 ML SQ SCH (16:34)
[2021-04-14] MEDS: AMITRIPTYLINE 25 MG TAB PO SCH (22:17)
[2021-04-14] MEDS: ATORVASTATIN 10 MG TAB PO SCH (22:17)
[2021-04-15] MEDS: METHYLPREDNISOLONE 40 MG INJ IV SCH ×3 (01:00→17:31)
[2021-04-15] MEDS: FUROSEMIDE 40 MG/4 ML VIAL IV SCH (10:03)
[2021-04-15] MEDS: FLUOXETINE 20 MG CAP PO SCH (10:03)
[2021-04-15] MEDS: CALCIUM CARBONATE 500 MG TAB PO SCH (10:03)
[2021-04-15] MEDS: PANTOPRAZOLE 40MG TABLET PO SCH ×2 (10:03→17:31)
[2021-04-15] MEDS: TRAMADOL HCL 50 MG TAB PO PRN (10:14)
--- NOTE | 2021-04-15 14:13 | RAD REPORT ---
EXAM DESCRIPTION: US - Renal Ultrasound-Complete - 04/15/2021 1:57 pm CLINICAL HISTORY: arf Flank pain COMPARISON: Abdomen Exam Limited dated 11/21/2017 FINDINGS: The examination is limited by patient body habitus. Both kidneys are normal in size, shape and echotexture. The right kidney measures 9.4 x 4.0 x 3.5 cm. No hydronephrosis, focal mass or perinephric fluid. The left kidney measures 8.5 x 3.7 x 3.5 cm. No hydronephrosis, focal mass or perinephric fluid. The urinary bladder is incompletely distended without gross abnormality seen. IMPRESSION: Grossly unremarkable examination, limited by patient body habitus
--- NOTE | 2021-04-15 14:27 | PN ---
Subjective: The patient has no new complaints. Objective: Vital Signs: Blood pressure 103/68, pulse 61, temperature 96.9. Heart: Regular rate and rhythm. Chest: Clear to auscultation. Abdomen: Soft, benign. Neurological: Alert and oriented. Grossly intact. Extremities: No edema. No cyanosis. Peripheral pulses are felt. Laboratory Data: Chemistry; BUN 59, creatinine 1.91. Hemoglobin A1c is 6.1. Assessment And Plan: Acute renal failure on chronic, getting worse despite diuresis. We will stop h er D5W. Still her BUN and creatinine are down to a GFR of 25. We are waiting for heart catheterizat ion; however, with this renal function, it should be, I think better before doing heart catheterizati ons, so we will ask Nephrology consult on that. The patient as per Cardiology is needing a heart cat heterization. Other than that, the patient is clinically stable from the rest of her medical problem s. Look orders for details. MFS/MODL Voice ID: [id number] Report ID: [id number]
[2021-04-15] MEDS: ENOXAPARIN 30 MG/0.3 ML SQ SCH (17:31)
[2021-04-15] MEDS: ATORVASTATIN 10 MG TAB PO SCH (21:13)
[2021-04-15] MEDS: AMITRIPTYLINE 25 MG TAB PO SCH (21:13)
--- NOTE | 2021-04-15 22:28 | CON ---
Date of Consultation: 04/15/2021 Chief Complaint: Acute on chronic kidney injury. Patient has chronic kidney disease stage 3. History Of Present Illness: She is admitted to the hospital because of congestive heart failure and COPD exacerbation. She is oxygen dependent. She was complaining of fatigue, gradual worsening of the shortness of breath over 1 to 2 weeks. She was feeling dizzy, nauseated and has some heart rate issues with bradycardia. Heart rate was declining up to 42. Patient was symptomatic with dizziness. She denies nausea, vomiting, melena, hematemesis, although she has chronic nausea, it did not progress to vomiting. Patient has chronic lower back pain and thoracic and lumbar spine area compression fracture. She was following by Pain Management. She does not take nonsteroidal anti-inflammatory medication. Lab work obtained in the hospital showed worsening of the renal function. Review of Systems: The patient denies fever or chills. Eyes: Denies vision changes. Ears, Nose, Mouth, and Throat: Denies sore throat, earache. Respiratory: She has shortness of breath, PND, orthopnea, dyspnea on exertion. Denies syncope. Cardiovascular: Bradycardia. The patient was symptomatic with dizziness. Heart rate was in 40s. : Denies dysuria, hematuria, incomplete voiding. Patient denies renal colic. All other systems reviewed and all are negative. Past Medical History: Congestive heart failure, hypertensive heart and kidney disease benign, nephrosclerosis, COPD on oxygen, patient is oxygen dependent, hypertension, hypertensive heart and kidney disease, chronic back pain, GERD, hyperlipidemia, history of bowel perforation in the past. Social History: Denies tobacco or alcohol use. Family History: No kidney disease in the family. Physical Examination: General: Patient is awake, alert, follows commands. Eyes: Anicteric sclerae. EOMI. Ears, Nose and Throat: Oral mucosa moist. No pallor. Neck: Supple. No bruits. Lungs: Diminished breath sounds at bases Heart: S1, S2. No pericardial friction or rub. Abdomen: Soft, benign, nontender. Extremities: Slight edema in both legs Neurological: Moving extremities. Cranial nerves intact. Psychiatric: Alert and oriented x3. Normal affect. Laboratory Data: WBC 6.1, hemoglobin 10.7, hematocrit 33.5, platelet count 130. Sodium 146, potassium 5.1, chloride 110, CO2 34, BUN 40, creatinine 1.55. BNP 22397. Lab work today showed sodium 144, potassium 5.0, chloride 106, CO2 34, BUN 69, creatinine 1.91, BUN is 59, glucose 159. BNP 51823. Baseline creatinine level 1.5. Impression And Plan: Acute on chronic kidney injury. Patient has chronic kidney stage 3. Patient has history of congestive heart failure. She presented to the hospital because of congestive heart failure exacerbation. Renal function has declined and due to cardiorenal syndrome and diuretic effect. The patient will continue diuretics for congestive heart failure control. Plan is to check urinalysis to rule out active urinary sediment and evaluate for possible glomerulonephritis. The patient has history of chronic kidney disease stage 3. In 2020, creatinine level was ranging from 1.35 to 1.61. Back in February 2019, creatinine level was 1.35 and previously baseline was ranging from 0.8 to 1.12. Patient has cardiorenal syndrome and this account for elevated creatinine and BUN. There is some effect of diuretics and recently patient developed metabolic alkalosis with bicarbonate of 34, which occurs in setting of diuretic effect as well as COPD history. Plan is to check urinalysis and screening for proteinuria. Renal ultrasound will be done to screen for obstructive uropathy. Continue diuretic and low-sodium diet. Cardiology consultation is obtained for further workup and to rule out coronary artery disease. BALJEET/ANGELINA Voice ID: [id number] Report ID: [id number] GILES
[2021-04-15] MEDS ORDERED: POLYETHYL GLY 3350 17 GM/DOSE PO ONE (23:27)
[2021-04-16] MEDS: METHYLPREDNISOLONE 40 MG INJ IV SCH ×3 (01:00→17:22)
[2021-04-16 06:14] LABS: Potassium 4.4 mmol/L (3.5-5.1)
[2021-04-16] MEDS: ONDANSETRON 4 MG/2 ML VIAL IV PRN (07:45)
[2021-04-16] MEDS: DOCUSATE NA 100 MG CAP PO SCH (10:05)
[2021-04-16] MEDS: FUROSEMIDE 40 MG/4 ML VIAL IV SCH (10:05)
[2021-04-16] MEDS: FLUOXETINE 20 MG CAP PO SCH (10:05)
[2021-04-16] MEDS: CALCIUM CARBONATE 500 MG TAB PO SCH (10:05)
[2021-04-16] MEDS: PANTOPRAZOLE 40MG TABLET PO SCH ×2 (10:32→17:22)
[2021-04-16] MEDS: IPRATROPIUM BROM 0.5MG/2.5ML NEB PRN ×2 (12:11→22:55)
[2021-04-16] MEDS: ALBUTEROL 2.5 MG/3 ML NEB SOL NEB PRN ×2 (12:11→22:55)
--- NOTE | 2021-04-16 14:05 | P.PN ---
Subjective Date of Service: 04/16/21 Subjective: Other (She reports having less shortness of breath today.) Physical Examination - Vital Signs Temperature: 97.6 F Blood Pressure: 115/71 Pulse: 86 Respirations: 21 Pulse Ox (%): 100 - Physical Exam General: Other (appears as her stated age.) HEENT: Atraumatic, Normocephalic Neck: Supple Respiratory: Other (symmetric chest expansion) Gastrointestinal: Soft and benign, Non-distended Neurological: Normal speech, Normal tone Assessment And Plan - Plan # YUNIOR 2/2 CRS1 + diuretic use on CKD3b Baseline serum creatinine 1.35-1.61 SCr currently at 1.9 No hx of DM Hx of multiple UTIs Do NOT limit fluid intake unless she becomes hyponatremic Renal US unremarkable F/u serum iPTH # Non-proteinuric CKD3 probably 2/2 CRS2 +/- Htn Random UPCR 0.2g BP at goal Monitor renal panel # Acute on chronic CHF +bibasilar rales +trace BLLE edema BNP sig elevated TTE in 2019 unimpressive Cardio consult Inc furosemide to 80 mg IV bid Low Na diet Do NOT limit fluid intake as above # NSTEMI Mngt per Cardiology For coronary angiogram # COPD Hx of long-term cig smoking +chronic serum bicarb elevation On home O2 24/ Cont home meds & inhalers
--- NOTE | 2021-04-16 14:25 | RAD REPORT ---
EXAM DESCRIPTION: [place] Single View04/16/2021 2:17 pm CLINICAL HISTORY: Shortness of breath COMPARISON: February 2021 FINDINGS: The lungs appear clear of acute infiltrate. The heart is moderately to markedly enlarged IMPRESSION: No acute abnormalities displayed
[2021-04-16] MEDS ORDERED: FUROSEMIDE 40 MG/4 ML VIAL IV SCH (17:00)
[2021-04-16] MEDS ORDERED: FUROSEMIDE 100 MG/10 ML VIAL IV SCH (17:00)
[2021-04-16 17:11] LABS: Urine Protein/Creatinine Ratio 0.2 ratio (<0.15)
[2021-04-16] MEDS: ENOXAPARIN 30 MG/0.3 ML SQ SCH (17:22)
[2021-04-16] MEDS: FUROSEMIDE 100 MG/10 ML VIAL IV SCH (18:00)
[2021-04-16] MEDS: AMITRIPTYLINE 25 MG TAB PO SCH (21:37)
[2021-04-16] MEDS: ATORVASTATIN 10 MG TAB PO SCH (21:37)
[2021-04-17] MEDS: METHYLPREDNISOLONE 40 MG INJ IV SCH ×3 (01:00→16:24)
[2021-04-17 04:30] LABS: Absolute Lymphocytes (CBC) 0.1 K/uL (0.7-4.9); Basophils % 0.2 % (0-1.3); Hematocrit 36.3 % (36.0-45.0); Lymphocytes % 1.1 % (15.3-44.8); MPV 11.1 fL (7.6-11.3); RBC Red Blood Cell Count 3.87 M/uL (3.86-4.86)
[2021-04-17 04:38] LABS: Albumin 3.1 g/dL (3.4-5.0); Magnesium 2.4 mg/dL (1.8-2.4); Phosphorus 3.8 mg/dL (2.5-4.9)
[2021-04-17 05:03] LABS: Blood Morphology Comment NOTED (NOT SEEN); Platelet Estimate ADEQ; Teardrop Cell 1+
[2021-04-17] MEDS: FLUOXETINE 20 MG CAP PO SCH (08:41)
[2021-04-17] MEDS: FUROSEMIDE 100 MG/10 ML VIAL IV SCH ×2 (08:41→16:23)
[2021-04-17] MEDS: PANTOPRAZOLE 40MG TABLET PO SCH ×2 (08:41→16:24)
[2021-04-17] MEDS: DOCUSATE NA 100 MG CAP PO SCH (08:42)
[2021-04-17] MEDS: ONDANSETRON 4 MG/2 ML VIAL IV PRN (08:42)
[2021-04-17] MEDS: CALCIUM CARBONATE 500 MG TAB PO SCH (08:42)
[2021-04-17] MEDS: IPRATROPIUM BROM 0.5MG/2.5ML NEB PRN ×2 (10:33→20:05)
[2021-04-17] MEDS: ALBUTEROL 2.5 MG/3 ML NEB SOL NEB PRN ×2 (10:33→20:05)
--- NOTE | 2021-04-17 11:58 | PN ---
Subjective: The patient has no new complaints. Objective: Vital Signs: Blood pressure 111/68, pulse 78, temperature 96.5. Heart: Regular rate and rhythm. Chest: Clear to auscultation. Abdomen: Soft, benign. Neurological: Alert and oriented. Grossly intact. Extremities: No edema. No cyanosis. Peripheral pulses are felt. Laboratory Data: Sodium 146, CO2 of 35, BUN 71, creatinine 2.03, GFR 24, glucose 188, and PTH of 238 .3. CBC noted. Assessment And Plan: 1.Acute on chronic renal failure secondary to congestive heart failure exacerbation. The patient is on IV Lasix. Expect that as per Nephrology for her BUN and creatinine to improve to where we could do heart catheterization as per Cardiology as needed for the patient because she may have had an DE, which is subendocardial. 2.Chronic obstructive pulmonary disease exacerbation. Keep the patient on current inhalers and irene tment. 3.Hypernatremia. We will not limit the patient's free water drinking, but we will continue the IV L asix and we will follow up Nephrology recommendation also from that standpoint. Look orders for deta ils. MFS/MODL Voice ID: [id number] Report ID: [id number]
--- NOTE | 2021-04-17 12:03 | PN ---
Date of Progress Note: 04/17/2021 Subjective: The patient was admitted with acute kidney injury secondary to cardiorenal. The patient is on diuresis and still feeling shortness of breath. Physical Examination: Vital Signs: Blood pressure 111/68, pulse of 78, afebrile. The patient had good urine output of 1100. Chest: Crackles bilateral base. Heart: S1, S2. Systolic murmur. Abdomen: Soft, nontender. Extremities: +1 edema. Neuro: Alert. No focality. Laboratory Data: WBC 8.5, H and H 11.6/36.3, platelet 120. Sodium 146, potassium 4, bicarb 35, BUN 71, creatinine 2, GFR of 24, calcium 8.8, phosphorus 3.8, magnesium 2.4, albumin 3.1, corrected calcium 9.6. PTH 238. PC ratio 0.2. Current Medications: The patient on include; 1. Albuterol. 2. Lovenox. 3. Calcium carbonate. 4. Atorvastatin. 5. Fluoxetine. 6. Lasix 80 b.i.d. 7. Breathing treatment. 8. Solu-Medrol. Assessment And Plan: 1. Acute kidney injury on chronic kidney disease, over volume, normal size kidney, nonproteinuric, mostly secondary to cardiorenal. I am going to go ahead and increase Lasix to 80 mg t.i.d. to establish better volume control and we will monitor the patient closely. 2. Secondary hyperparathyroidism. We will start the patient on calcitriol. 3. Hypertension. We will utilize blood pressure for more diuresis, increase Lasix. We will follow up. 4. Chronic obstructive pulmonary disease exacerbation as by primary. 5. Hypocalcemia secondary to secondary hyperparathyroidism, corrected calcium under goal. The patient is going to be started on calcitriol. 6. Non-ST elevation myocardial infarction. Follow up with Cardiology. time spend discussing the case with the patient , exam the patient face to face , placing order, discussing the case with the staff and hospitalist 45 min SONU Voice ID: [id number] Report ID: [id number] GILES
[2021-04-17] MEDS: CALCITROL 0.25 MCG CAP PO SCH (12:54)
[2021-04-17] MEDS: ENOXAPARIN 30 MG/0.3 ML SQ SCH (16:23)
[2021-04-17] MEDS ORDERED: DIGOXIN 0.25 MG/ML AMP IV ONE (19:05)
[2021-04-17] MEDS ORDERED: METOPROLOL XL 50 MG TAB PO ONE (19:06)
[2021-04-17] MEDS: TRAMADOL HCL 50 MG TAB PO PRN (19:14)
[2021-04-17] MEDS: ATORVASTATIN 10 MG TAB PO SCH (20:11)
[2021-04-17] MEDS: AMITRIPTYLINE 25 MG TAB PO SCH (20:12)
[2021-04-18] MEDS: FUROSEMIDE 100 MG/10 ML VIAL IV SCH ×3 (01:00→17:00)
[2021-04-18] MEDS: METHYLPREDNISOLONE 40 MG INJ IV SCH ×3 (03:03→17:22)
[2021-04-18] MEDS: PANTOPRAZOLE 40MG TABLET PO SCH ×2 (04:36→17:22)
[2021-04-18] MEDS: METOPROLOL XL 50 MG TAB PO SCH ×2 (04:36→17:22)
[2021-04-18 06:05] LABS: Potassium 4.1 mmol/L (3.5-5.1)
[2021-04-18] MEDS: FLUOXETINE 20 MG CAP PO SCH (09:08)
[2021-04-18] MEDS: TRAMADOL HCL 50 MG TAB PO PRN (09:08)
[2021-04-18] MEDS: DOCUSATE NA 100 MG CAP PO SCH (09:08)
[2021-04-18] MEDS: CALCIUM CARBONATE 500 MG TAB PO SCH (09:08)
[2021-04-18] MEDS: ONDANSETRON 4 MG/2 ML VIAL IV PRN (09:09)
--- NOTE | 2021-04-18 10:46 | PN ---
Date of Progress Note: 04/18/2021 Ms. Simon has been in the hospital since 04/13/2021. She was admitted for a combination of diastolic congestive heart failure as well as COPD exacerbation. She has done fairly well on the Lasix. Her l ast echocardiogram shows ejection fraction 57% with mild pulmonary hypertension. She has had elevate d creatinine heart catheterization has been held secondary to her renal insufficiency. Laurel barnes is presently on albuterol, Lipitor, Lovenox, Lasix, inhalers, steroids, metoprolol, went into atria l fibrillation with rapid ventricular response. We will continue her metoprolol, but increase it to 50 b.i.d., give her a dose of digoxin, continue her Lovenox. She remains in atrial fibrillation. We will consider Betapace and/or cardioversion. If her creatinine goes back to normal, we will discuss possible heart catheterization. ALEJANDRO/ANGELINA Voice ID: [id number] Report ID: [id number]
--- NOTE | 2021-04-18 13:19 | PN ---
Date of Progress Note: 04/18/2021 Subjective: The patient had AFib with RVR yesterday. The patient was seen by Cardiology, started on metoprolol. Rate has been controlled. Rhythm is still AFib. Physical Examination: Vital Signs: Blood pressure 146/68, pulse of 80, afebrile. The patient had improved her urine output. The patient decreased in weight lost 2 pounds from yesterday. Chest: Crackles bilateral base. Heart: S1, S2. Regular. Abdomen: Soft, nontender. Extremities: Plus edema. Neuro: Alert. No focality. Laboratory Data: WBC 8.5, H and H 11.6/36.3. Sodium 144, potassium 4.1, bicarb 37, BUN 72, creatinine 2.1, GFR 23, calcium 8.8. PTH 238. Current Medications: The patient on include; 1. Lovenox. 2. Calcium carbonate. 3. Digoxin. 4. Metoprolol 50 b.i.d. 5. Amitriptyline. 6. Fluoxetine. 7. Lasix 80 t.i.d. 8. Pantoprazole. 9. Solu-Medrol. 10. Tramadol. 11. Calcitriol 0.25 every other day. Assessment And Plan: 1. Acute kidney injury on chronic kidney disease secondary to cardiorenal, normal size kidney, looked to me start to be on a good volume status. We will continue current diuresis. We will consider switching to oral, starting tomorrow. We will monitor the patient. 2. Given the atrial fibrillation with RVR, I am going to go ahead and send for LDH and complement to rule out any emboli. 3. Hypertension, controlled. We will utilize blood pressure for more diuresis. 4. Secondary hyperparathyroidism, started on calcitriol. We will follow up. 5. Atrial fibrillation with RVR as by Cardiology. 6. Congestive heart failure with exacerbation as by Cardiology. 7. Chronic obstructive pulmonary disease. Continue current treatment. 8. Urinary tract infection, status post treatment. time spend discussing the case with the patient , exam the patient face to face , placing order, discussing the case with the staff and hospitalist 45 min SONU Voice ID: [id number] Report ID: [id number] GILES
[2021-04-18] MEDS: IPRATROPIUM BROM 0.5MG/2.5ML NEB PRN (14:41)
--- NOTE | 2021-04-18 16:04 | PN ---
Subjective: The patient is sitting, has no new complaints. Feeling well. Objective: Vital Signs: Blood pressure 146/68, pulse is 80, temperature 97.1. Heart: Irregular rate and rhythm. Chest: Clear to auscultation. Abdomen: Soft, benign. Neurologic: Alert and oriented. Grossly intact. Extremities: No edema. No cyanosis. Laboratory Data: Telemetry showed that the patient went into atrial fibrillation with rapid ventricu lar response rate. Assessment And Plan: 1.New onset atrial fibrillation. The patient has been put on beta-blockers by Cardiology and the pl an is to consider cardioversion after chemical cardioversion, back to normal sinus and recommendation to keep her for now on Lovenox. 2.Congestive heart failure, systolic, chronic with acute exacerbation. Nephrology has increased the dosage of IV Lasix. We are still looking for better diuresis and better improvement in her kidney f unction. 3.Acute renal failure on top of chronic. Expect that to improve with improved diuresis. 4.Chronic obstructive pulmonary disease exacerbation, stable. 5.Anemia of chronic illness, stable. 6.Coronary artery disease, non ST-segment elevation myocardial infarction. Hemodynamically stable a nd the patient has no symptoms. Plan for heart catheterization; however, pending improved renal function. Look orders for details. MFS/MODL Voice ID: [id number] Report ID: [id number]
--- NOTE | 2021-04-18 16:04 | RAD REPORT ---
EXAM DESCRIPTION: RAD - Chest Single View - 04/18/2021 3:34 pm CLINICAL HISTORY: COPD COMPARISON: Portable April 16 TECHNIQUE: AP portable chest image was obtained 04/18/2021 3:34 pm . FINDINGS: Lung volumes are low. Cardiomegaly is present with a widened mediastinum that is probably the affects of prominent vasculature, shallow inspiration and portable imaging. The white mediastinum is a stable appearance. Interstitial markings are prominent but diminished from the prior study. No peripheral mass or consolidation. Trachea is midline. No pneumothorax. Costophrenic angle blunting is present probably the affects of portable imaging and overlying soft tissues. Small pleural effusions cannot be excluded. No acute bony abnormality seen. Prominent aortic calcifications seen. IMPRESSION: Patient has chronic cardiomegaly and chronic interstitial lung disease. No significant change from prior imaging.
[2021-04-18] MEDS: ENOXAPARIN 30 MG/0.3 ML SQ SCH (17:22)
[2021-04-18] MEDS: ATORVASTATIN 10 MG TAB PO SCH (22:15)
[2021-04-18] MEDS: AMITRIPTYLINE 25 MG TAB PO SCH (22:15)
[2021-04-19] MEDS: FUROSEMIDE 100 MG/10 ML VIAL IV SCH (01:00)
[2021-04-19] MEDS: METHYLPREDNISOLONE 40 MG INJ IV SCH ×3 (01:07→17:31)
[2021-04-19] MEDS: METOPROLOL XL 50 MG TAB PO SCH ×2 (06:11→17:29)
--- NOTE | 2021-04-19 06:14 | P.PN ---
Subjective Date of Service: 04/19/21 Subjective: No new changes Physical Examination - Vital Signs Temperature: 97.5 F Blood Pressure: 137/70 Pulse: 65 Respirations: 22 Pulse Ox (%): 97 - Physical Exam General: Other (appears as her stated age) HEENT: Atraumatic, Normocephalic Neck: Supple Respiratory: Other (symmetric chest expansion) Cardiovascular: No rubs, No murmurs Gastrointestinal: Soft and benign, Non-distended Musculoskeletal: Other (normal temp) Neurological: Normal tone Assessment And Plan - Plan # YUNIOR 2/2 CRS1 + diuretic use on CKD3b Baseline serum creatinine 1.35-1.61 SCr currently plateaued at 2.1 No hx of DM Hx of multiple UTIs Do NOT limit fluid intake unless she becomes hyponatremic Renal US unremarkable # Non-proteinuric CKD3 probably 2/2 CRS2 +/- Htn Random UPCR 0.2g BP at goal Monitor renal panel # Acute on chronic CHF +Bibasilar rales +Trace BLLE edema BNP sig elevated TTE in 2019 unimpressive Cardio ff Cont furosemide 80 mg po tid Low Na diet Do NOT limit fluid intake as above # Contraction alkalosis Start diamox 250 mg IV q12h # NSTEMI Mngt per Cardiology For hear cath when renal fxn better # Afib Lovenox # COPD Hx of long-term cig smoking +chronic serum bicarb elevation On home O2 22/06 Cont home meds & inhalers # Secondary hyperPTH iPTH sig elevated at 238 Corrected Ca & Phos wnl
[2021-04-19 06:30] LABS: Albumin 3.1 g/dL (3.4-5.0); Phosphorus 4.9 mg/dL (2.5-4.9); Potassium 4.2 mmol/L (3.5-5.1)
[2021-04-19] MEDS: FUROSEMIDE 40 MG TABLET PO SCH ×4 (09:00→22:29)
[2021-04-19] MEDS: FLUOXETINE 20 MG CAP PO SCH (09:28)
[2021-04-19] MEDS: CALCIUM CARBONATE 500 MG TAB PO SCH (09:28)
[2021-04-19] MEDS: DOCUSATE NA 100 MG CAP PO SCH (09:29)
[2021-04-19] MEDS: PANTOPRAZOLE 40MG TABLET PO SCH ×2 (09:29→17:29)
[2021-04-19] MEDS: CALCITROL 0.25 MCG CAP PO SCH (13:05)
[2021-04-19] MEDS ORDERED: ACETAZOLAMIDE 500 MG IV IV ONE (13:30)
[2021-04-19] MEDS: ENOXAPARIN 30 MG/0.3 ML SQ SCH (17:31)
[2021-04-19] MEDS ORDERED: HYOSCYAMINE SULF 0.125 MG TAB PO PRN (19:23)
[2021-04-19] MEDS: ATORVASTATIN 10 MG TAB PO SCH (20:09)
[2021-04-19] MEDS: ACETAZOLAMIDE 500 MG IV IV SCH (20:09)
[2021-04-19] MEDS: AMITRIPTYLINE 25 MG TAB PO SCH (20:10)
[2021-04-19] MEDS ORDERED: WATER FOR INJ,STERILE 10 ML ONE (20:27)
--- NOTE | 2021-04-19 20:32 | PN ---
Subjective: The patient has no cough, no fever, no chills, no increased shortness of breath. Has no complaints. Objective: Vital Signs: Blood pressure 160/78, pulse 68, temperature 98.4. Heart: rate and rhythm. Chest: Clear to auscultation. Abdomen: Soft, benign. Neurologic: Alert, oriented, nonfocal. Grossly intact. Diagnostic Data: Chest x-ray, no significant change from previous x-ray with moderate cardiomegaly. Chloride 93, CO2 43, BUN 81, creatinine 2.14, GFR 22. Assessment And Plan: 1.Congestive heart failure with exacerbation. The patient is needing to be diuresed enough and we h ave not reached that point yet. Nephrology is following the case with us to improve kidney functions and furosemide has been increased to 80 mg t.i.d. 2.Atrial fibrillation. Plan as per Cardiology. 3.No indication of chronic obstructive pulmonary disease. Continue breathing treatment. Clinically stable. 4.Patient is retaining CO2 secondary to congestive heart failure, renal failure and chronic obstruct nael pulmonary disease. We will monitor her electrolytes. May need dialysis at some point if her kid robinson functions continue to worsen. Meanwhile, she is currently stable. Look orders for details. MFS/MODL Voice ID: [id number] Report ID: [id number]
[2021-04-19] MEDS ORDERED: ONDANSETRON 4 MG/2 ML VIAL IV PRN (20:59)
[2021-04-20] MEDS: METHYLPREDNISOLONE 40 MG INJ IV SCH ×3 (01:11→16:28)
[2021-04-20] MEDS: METOPROLOL XL 50 MG TAB PO SCH ×2 (06:09→17:34)
[2021-04-20 06:23] LABS: Absolute Lymphocytes (CBC) 0.2 K/uL (0.7-4.9); Basophils % 0.1 % (0-1.3); Hematocrit 40.8 % (36.0-45.0); Lymphocytes % 1.4 % (15.3-44.8); MPV 11.5 fL (7.6-11.3); RBC Red Blood Cell Count 4.34 M/uL (3.86-4.86)
[2021-04-20 06:51] LABS: Albumin 3.3 g/dL (3.4-5.0); Magnesium 2.7 mg/dL (1.8-2.4); Phosphorus 5.7 mg/dL (2.5-4.9); Potassium 3.5 mmol/L (3.5-5.1)
[2021-04-20] MEDS ORDERED: POTASSIUM 25 MEQ EFFERV TAB PO ONE (09:01)
[2021-04-20] MEDS: FUROSEMIDE 40 MG TABLET PO SCH ×3 (09:20→21:02)
[2021-04-20] MEDS: PANTOPRAZOLE 40MG TABLET PO SCH ×2 (09:20→16:28)
[2021-04-20] MEDS: FLUOXETINE 20 MG CAP PO SCH (09:20)
[2021-04-20] MEDS: CALCIUM CARBONATE 500 MG TAB PO SCH (09:20)
[2021-04-20] MEDS: DOCUSATE NA 100 MG CAP PO SCH (09:20)
[2021-04-20] MEDS: ACETAZOLAMIDE 500 MG IV IV SCH ×2 (09:29→21:03)
[2021-04-20] MEDS ORDERED: POTASSIUM 25 MEQ EFFERV TAB ONE ×2 (09:36→09:42)
[2021-04-20 11:54] LABS: Blood Morphology Comment NOT SEEN (NOT SEEN); Platelet Estimate DECR; White Blood Cell Scan OK (OK)
--- NOTE | 2021-04-20 13:31 | RAD REPORT ---
EXAM DESCRIPTION: RAD - Chest Single View - 04/20/2021 1:21 pm CLINICAL HISTORY: pneumonia Chest pain. COMPARISON: Chest Single View dated 04/18/2021; Chest Single View dated 04/16/2021; Chest Single View dated 04/12/2021; Chest Single View dated 03/18/2021 FINDINGS: Portable technique limits examination quality. Left lung base aeration is mildly improved since the prior study. Trace pleural effusions suspected. Heart is moderately enlarged. Thoracic aorta is atherosclerotic prominent in size. IMPRESSION: Mild improvement in left lung base aeration since comparative study.
[2021-04-20] MEDS: ENOXAPARIN 30 MG/0.3 ML SQ SCH (16:31)
--- NOTE | 2021-04-20 19:23 | PN ---
Subjective: The patient has no new complaints. Said she is comfortable. No increased shortness of breath, has minimal coughing off and on. Objective: Vital Signs: Blood pressure 139/66, pulse 76, temperature 96.9. Heart: Regular rate and rhythm. Chest: Mild bilateral bibasilar rales. Abdomen: Soft, nontender, no hepatosplenomegaly. Bowel sounds are normoactive. Extremities: No edema. No cyanosis. Peripheral pulses are felt. Neurologic: Alert and oriented, nonfocal, grossly intact. Laboratory Data: BUN 84, creatinine 2.19, GFR 22, bicarb 42. Assessment And Plan: 1.Congestive heart failure. The patient is not diuresing well and her kidney functions are not impr oving on high dose of Lasix of 80 mg IV 3 times a day now. Looking at her intake and output, a total of 340 with an output of 340 in the last shift. I think the patient may need to have dialysis from that standpoint at least for volume control and trying to regain kidney function. 2.White cell count up to 17.40 on her CBC. The patient is on steroids for chronic obstructive pulmo nary disease and demargination of white cell count can explain that; however, she is also more prone, because of recumbency, to have an infection settling down, so we will put her on Rocephin. I have o rdered a chest x-ray. The rest of her medical problems stable. Look orders for details. MFS/MODL Voice ID: [id number] Report ID: [id number]
[2021-04-20] MEDS: ATORVASTATIN 10 MG TAB PO SCH (21:02)
[2021-04-20] MEDS: AMITRIPTYLINE 25 MG TAB PO SCH (21:02)
[2021-04-21] MEDS: METHYLPREDNISOLONE 40 MG INJ IV SCH ×3 (00:29→16:24)
--- NOTE | 2021-04-21 01:42 | PN ---
Date of Progress Note: 04/20/2021 Chief Complaint: Congestive heart failure, acute kidney injury secondary to cardiorenal syndrome. Subjective: Patient is on diuretics. Patient has history of chronic kidney disease stage 3. Baseli ne creatinine level is ranging from 1.3 to 1.6. Currently, serum creatinine level is plateauing at 2 .1. Patient developed acute on chronic kidney injury, nonoliguric. Patient does not have history of diabetes mellitus. She has recurrent urinary tract infection. Renal ultrasound did not show obstructive uropathy. Review of Systems: Denies PND, orthopnea. Physical Examination: Lungs: Clear to auscultation bilaterally. Heart: S1, S2. Abdomen: Soft, benign. Extremities: Slight edema present in both legs. Laboratory Data: Hemoglobin 13.2, WBC 17.4, platelet count 119. Chemistries show sodium 143, potass ium 3.8, chloride 93, CO2 22, BUN 84, creatinine 2.19, glucose 186, phosphorus 5.7, magnesium 2.7, ca lcium 9.0, albumin 3.3. Impression: 1.Acute on chronic kidney injury. Patient has underlying chronic kidney disease with borderline pro teinuria. She has recurrent urinary tract infection. She was treated with antibiotics. She present ed to the hospital because of shortness of breath. The patient has been treated with diuretics. Dexter n is to adjust diuretic therapy and evaluate electrolytes. Furosemide was increased to 80 mg 3 times per day. 2.There is high BUN-creatinine ratio secondary to cardiorenal syndrome. 3.Urinary tract infection. Re-evaluate urine culture. The patient was found to have elevated white count and evaluate blood culture and urine culture. BALJEET/ANGELINA Voice ID: [id number] Report ID: [id number]
[2021-04-21] MEDS: METOPROLOL XL 50 MG TAB PO SCH ×2 (05:44→17:42)
[2021-04-21 06:37] LABS: Absolute Lymphocytes (CBC) 0.2 K/uL (0.7-4.9); Basophils % 0.1 % (0-1.3); Hematocrit 39.4 % (36.0-45.0); MPV 10.9 fL (7.6-11.3); RBC Red Blood Cell Count 4.24 M/uL (3.86-4.86)
[2021-04-21 07:02] LABS: Magnesium 2.9 mg/dL (1.8-2.4); Phosphorus 4.5 mg/dL (2.5-4.9); Potassium 3.4 mmol/L (3.5-5.1)
[2021-04-21] MEDS: CEFTRIAXONE/SWI 1gm 1 GM/10 ML SYR IVP SCH (08:38)
[2021-04-21] MEDS: FUROSEMIDE 40 MG TABLET PO SCH ×2 (08:39→14:07)
[2021-04-21] MEDS: FLUOXETINE 20 MG CAP PO SCH (08:39)
[2021-04-21] MEDS: PANTOPRAZOLE 40MG TABLET PO SCH ×2 (08:39→16:24)
[2021-04-21] MEDS: DOCUSATE NA 100 MG CAP PO SCH (08:39)
[2021-04-21] MEDS: CALCIUM CARBONATE 500 MG TAB PO SCH (08:45)
[2021-04-21] MEDS: ACETAZOLAMIDE 500 MG IV IV SCH ×2 (08:48→21:51)
[2021-04-21] MEDS ORDERED: SPIRONOLACTONE 25 MG TABLET PO SCH (09:00)
[2021-04-21] MEDS: CALCITROL 0.25 MCG CAP PO SCH (12:07)
--- NOTE | 2021-04-21 14:49 | PN ---
Subjective: The patient has no new complaints. Objective: Vital Signs: Blood pressure 130/90, pulse 54, temperature 97.8, respiratory rate of 22. Heart: Regular rate and rhythm. Chest: Clear to auscultation. Abdomen: Soft, benign. Extremities: No edema or cyanosis. Neurological: Alert, oriented. Grossly intact. Laboratory Data: The patient's glomerular filtration rate is down to 20. CO2 was down to 41. Potas sium 3.4. CBC noted. Assessment And Plan: 1.Acute on chronic renal failure secondary to congestive heart failure. Kidney function is not impr oving and diuresis is not improving. Pending Nephrology opinion about this and should the patient un dergo dialysis. 2.The patient's white cell count dropped to 14,000. I put her on ceftriaxone IV for urinary tract i nfection, continue that. 3.Congestive heart failure, volume controlled by Renal whether with medicines or with dialysis pendi alberto their opinion about that. The rest of patient's medical problems stable. Look orders for details . MFS/MODL Voice ID: [id number] Report ID: [id number]
[2021-04-21] MEDS: ENOXAPARIN 30 MG/0.3 ML SQ SCH (16:26)
[2021-04-21 19:28] LABS: Urine Amorphous Sediment 3+ /HPF (NONE SEEN); Urine Bacteria 20-50 /HPF (<20)
[2021-04-21] MEDS: ATORVASTATIN 10 MG TAB PO SCH (21:50)
[2021-04-21] MEDS: AMITRIPTYLINE 25 MG TAB PO SCH (21:50)
[2021-04-21] MEDS: FUROSEMIDE 40 MG/4 ML VIAL IV SCH (21:55)
[2021-04-22] MEDS: METHYLPREDNISOLONE 40 MG INJ IV SCH ×3 (00:48→17:13)
--- NOTE | 2021-04-22 01:17 | PN ---
Date of Progress Note: 04/21/2021 Chief Complaint: Congestive heart failure, acute on chronic kidney injury secondary to cardiorenal s yndrome. History Of Present Illness: The patient has been treated with p.o. Lasix 80 mg every 6 hours. Urine output has not improved significantly. The patient is complaining of some shortness of breath, gene ralized weakness, fatigue. Renal function has not improved. Creatinine level is plateauing. Creati nine level is over 2. The patient has history of chronic kidney disease stage 3. Baseline creatinin e level 1.3 to 1.6. The patient does not have history of diabetes mellitus. She has a recurrent his tory of urinary tract infection. Renal ultrasound did not show obstructive uropathy. Review of Systems: The patient is complaining of fatigue. Denies chest pain, palpitation, or syncope. Physical Examination: Lungs: Diminished breath sounds at bases. Heart: S1, S2. No pericardial friction rub. Edema present in both legs. Abdomen: Soft, benign. Laboratory Data: WBC 14.7, hemoglobin 12.9, hematocrit 39.4, platelet count 103,000. Sodium 141, po tassium 3.4, chloride 92, CO2 41, BUN 101, creatinine 2.37, glucose 210, magnesium 2.9. Impression And Plan: The patient has multiple medical problems including history of chronic kidney s tage 3. She developed acute kidney injury. Azotemia is progressively worse. The patient will start IV diuretic. Monitor blood pressure and fluid balance. Due to elevated azotemia, the patient may r equire dialysis. Plan is to resuscitate to IV diuretic and adjust diuretic to prevent metabolic seble losis. The patient will have Diamox and potassium replacement. Plan is to monitor magnesium level. The patient is currently not on magnesium replacement. Magnesium level is ranging from 2.4 to 2.9. Recurrent urinary tract infection. The patient was found to have elevated WBC. Urine was obtained a nd showed multiple WBC. Urine culture is pending. Renal ultrasound did not show obstructive uropath y. EB/MODL Voice ID: [id number] Report ID: [id number]
[2021-04-22 04:26] LABS: Absolute Lymphocytes (CBC) 0.2 K/uL (0.7-4.9); Basophils % 0.1 % (0-1.3); Hematocrit 41.2 % (36.0-45.0); Lymphocytes % 1.3 % (15.3-44.8); MPV 11.5 fL (7.6-11.3)
[2021-04-22 04:31] LABS: Protime INR 1.03
[2021-04-22 04:47] LABS: Magnesium 2.9 mg/dL (1.8-2.4); Phosphorus 4.8 mg/dL (2.5-4.9); Potassium 3.6 mmol/L (3.5-5.1)
[2021-04-22] MEDS: METOPROLOL XL 50 MG TAB PO SCH ×2 (05:26→17:12)
[2021-04-22] MEDS: ACETAZOLAMIDE 500 MG IV IV SCH ×2 (09:54→21:25)
[2021-04-22] MEDS: CEFTRIAXONE/SWI 1gm 1 GM/10 ML SYR IVP SCH (09:55)
[2021-04-22] MEDS: POTASSIUM CL SA 10 MEQ TAB PO SCH (09:56)
[2021-04-22] MEDS: FUROSEMIDE 40 MG/4 ML VIAL IV SCH (09:56)
[2021-04-22] MEDS: SPIRONOLACTONE 25 MG TABLET PO SCH (09:57)
[2021-04-22] MEDS: DOCUSATE NA 100 MG CAP PO SCH (09:57)
[2021-04-22] MEDS: FLUOXETINE 20 MG CAP PO SCH (09:58)
[2021-04-22] MEDS: PANTOPRAZOLE 40MG TABLET PO SCH ×2 (09:58→17:11)
[2021-04-22] MEDS: CALCIUM CARBONATE 500 MG TAB PO SCH (09:59)
--- NOTE | 2021-04-22 16:11 | PN ---
Subjective: The patient has no new complaints. She is trying to work with Physical Therapy for Chemay[facility] Dobleas and moving around. Objective: Vital Signs: Her blood pressure is 116/75, pulse 56, temperature 97. Heart: Regular rate and rhythm. Chest: Clear to auscultation. Abdomen: Soft, benign. Neurological: Alert, oriented. Grossly intact. Laboratory Data: White cell count 14,000, hemoglobin 12.9, hematocrit 41.2, platelets 113. CO2 at 4 4, BUN 103, creatinine 2.25. Assessment And Plan: 1.Acute on chronic renal failure, got worse. I think that the patient is not going to respond to IV Lasix, which Nephrology has just started her on that. She was on p.o. Lasix, then she will be dialy zed. Meanwhile, we will continue checking electrolytes and managing that along with Nephrology. The patient is on Diamox for elevated CO2. Continue that. 2.Non-ST elevation myocardial infarction. The patient clinically stable from that standpoint. 3.Congestive heart failure, systolic and diastolic element. Cardiology is following the case with u s; however, plan is to improve her kidney functions to where her heart catheterization could be done. At this point, waiting on improved kidney function. Meanwhile, we will continue current medication and treatment. Look orders for details. MFS/MODL Voice ID: [id number] Report ID: [id number]
[2021-04-22] MEDS ORDERED: FUROSEMIDE 40 MG/4 ML VIAL IV ONE (16:33)
[2021-04-22] MEDS: ENOXAPARIN 30 MG/0.3 ML SQ SCH (17:00)
[2021-04-22 17:10] LABS: Arterial Blood Carboxyhemoglob 1.2 % (0-1.5); Blood Gas Oxyhemoglobin 95.5 % (94-97); Blood O2 Saturation 97.7 % (92-98.5)
--- NOTE | 2021-04-22 18:06 | RAD REPORT ---
EXAM DESCRIPTION: RAD - Chest Single View - 04/22/2021 5:58 pm CLINICAL HISTORY: chf Chest pain. COMPARISON: Chest Single View dated 04/20/2021; Chest Single View dated 04/18/2021; Chest Single View dated 04/16/2021; Chest Single View dated 04/12/2021 FINDINGS: Portable technique limits examination quality. The lungs are grossly clear. The heart is moderately enlarged. Tortuous and atherosclerotic aortic ar ch. IMPRESSION: No acute intrathoracic process suspected.
[2021-04-22] MEDS: ATORVASTATIN 10 MG TAB PO SCH (21:24)
[2021-04-22] MEDS: AMITRIPTYLINE 25 MG TAB PO SCH (21:25)
[2021-04-22] MEDS: ALBUMIN HUMAN 25% 12.5 GM, FUROSEMIDE 100 MG in NA CHLORIDE 0.9% 40 ML IV SCH ×2 (21:32→22:00)
--- NOTE | 2021-04-22 21:53 | PN ---
Date of Progress Note: 04/22/2021 Chief Complaint: Congestive heart failure, acute on chronic kidney injury secondary to cardiorenal s yndrome. History Of Present Illness: The patient is complaining of generalized weakness. Urine output somewh at improved when the patient was started on IV Lasix. P.o. Lasix is on hold. The patient is complai fracisco of some shortness of breath. She is bedbound. She complains of fatigue. Denies chest pain, he moptysis, cough. Denies fever, chills. Creatinine level is plateauing, although remains about her b aseline creatinine. The patient has history of diabetes mellitus with renal manifestations and chronic kidney disease sta ge 3. Renal ultrasound did not show obstructive uropathy. Review of Systems: Denies fever, chills. Denies hemoptysis, abdominal pain, nausea, vomiting. Physical Examination: Lungs: Few crackles at bases. Heart: S1, S2. Edema present in both legs. Abdomen: Soft, benign. Laboratory Data: WBC 14,000, hemoglobin 12.9, hematocrit 41.2, platelet count is 113,000. Chemistry showed sodium 144, potassium 3.6, chloride 94, CO2 44, BUN 103, creatinine 2.25, glucose 202. Yeste rday, BUN 101, creatinine 2.35. Albumin 3.0. Urinalysis was done and shows multiple WBC, RBC presen t from 5 to 10, urine protein-creatinine ratio is 0.20. Microbiology: Urine culture was received on April 21 and results are pending. Impression And Plan: 1.The patient has acute kidney injury, fluid overload, congestive heart failure. She will continue IV Lasix. The patient was started on spironolactone. Monitor electrolytes closely and adjust medica tion as needed. 2.The patient has metabolic alkalosis secondary to diuretic. Plan is to check ABG and continue Diam ox. 3.Magnesium level is elevated likely due to chronic kidney. The patient has now been started on mag nesium supplementation. 4.Recurrent urinary tract infection. Urine culture pending. WBC is elevated, although improving in response to antibiotics. 5.Severe hyperazotemia. The patient is on steroids and BUN elevation is related to acute kidney inj ury, chronic kidney disease as well as steroid effect. The patient would like to avoid dialysis and she agreed to continue IV medication and passed on dialysis for next 2 days. If needed, the patient will be willing to start dialysis for volume control, increase diuretic suboptimal. EB/MODL Voice ID: [id number] Report ID: [id number]
[2021-04-23] MEDS: METHYLPREDNISOLONE 40 MG INJ IV SCH ×3 (01:30→21:59)
[2021-04-23] MEDS: ALBUMIN HUMAN 25% 12.5 GM, FUROSEMIDE 100 MG in NA CHLORIDE 0.9% 40 ML IV SCH ×4 (02:56→21:59)
[2021-04-23] MEDS: METOPROLOL XL 50 MG TAB PO SCH ×2 (05:26→18:42)
[2021-04-23 06:21] LABS: Absolute Lymphocytes (CBC) 0.1 K/uL (0.7-4.9); Basophils % 0.1 % (0-1.3); Hematocrit 41.1 % (36.0-45.0); Lymphocytes % 1.1 % (15.3-44.8); MPV 11.6 fL (7.6-11.3)
[2021-04-23 06:40] LABS: Albumin 3.3 g/dL (3.4-5.0); Magnesium 2.9 mg/dL (1.8-2.4); Phosphorus 4.7 mg/dL (2.5-4.9); Potassium 3.6 mmol/L (3.5-5.1)
[2021-04-23] MEDS: ACETAZOLAMIDE 500 MG IV IV SCH (09:52)
[2021-04-23] MEDS: DOCUSATE NA 100 MG CAP PO SCH (09:52)
[2021-04-23] MEDS: CEFTRIAXONE/SWI 1gm 1 GM/10 ML SYR IVP SCH (09:52)
[2021-04-23] MEDS: FLUOXETINE 20 MG CAP PO SCH (09:53)
[2021-04-23] MEDS: SPIRONOLACTONE 25 MG TABLET PO SCH (09:53)
[2021-04-23] MEDS: POTASSIUM CL SA 10 MEQ TAB PO SCH (09:53)
[2021-04-23] MEDS: PANTOPRAZOLE 40MG TABLET PO SCH ×2 (09:54→18:34)
[2021-04-23] MEDS: CALCIUM CARBONATE 500 MG TAB PO SCH (09:55)
[2021-04-23] MEDS ORDERED: FUROSEMIDE 40 MG/4 ML VIAL IV ONE (11:40)
--- NOTE | 2021-04-23 14:33 | PN ---
Date of Progress Note: 04/23/2021 Subjective: The patient was admitted with CHF exacerbation. The patient was started on diuresis. Physical Examination: Vital Signs: Blood pressure 115/76, pulse of 51, afebrile. The patient had good urine output of 1600, negative of 750. Chest: Crackles bilateral base. Heart: S1, S2. Systolic murmur. Abdomen: Soft, nontender. Extremities: Plus edema. Neurologic: Alert. No focality. Laboratory Data: WBC 13.7, H and H 13.1/41.1. Sodium 142, potassium 3.6, bicarb 38, BUN 104, creatinine 2.1, GFR of 22, calcium of 9, phosphorus 4.7, magnesium 2.9. Albumin is 3.3. Corrected calcium is 9.6. Current Medications: The patient on include; 1. Ceftriaxone. 2. Lovenox. 3. Calcium. 4. Spironolactone 50 daily. 5. Metoprolol. 6. Amitriptyline. 7. Lasix. 8. Diamox. 9. Solu-Medrol. 10. Tramadol. 11. KCl. Assessment And Plan: 1. Acute kidney injury secondary to cardiorenal on advanced chronic kidney disease. Has significant disproportion in the BUN and creatinine secondary to catabolic state/steroid/poor perfusion secondary to cardiorenal. The patient looked to me start to be on the normal volume side. I am going to go ahead and decrease her prednisone, Solu-Medrol to q.12 hours to avoid worsening on the BUN. I had long discussion with the patient and the daughter over the phone regarding if the patient is going for cardiac cath on the presence of non-ST elevation myocardial infarction, I rather to take the risk of acute kidney injury in the current situation as kidney function being stable to further evaluation if the cardiac cath is urgently indicated by Cardiology. I explained to the patient and to the daughter that can carry the risk of contrast-induced acute kidney injury, which include the patient's progress to the need to have dialysis, which could be transient. Family agreed if needed to proceed. We will discuss with Cardiology. I am going to resume Lasix oral and we will follow up the patient. 2. Coronary artery disease with congestive heart failure exacerbation given the marginal blood pressure. The patient maintained on the diuresis currently. Has good urine output. The discussion about the option of treatment as above. We will continue the Lasix drip. We will consider switching to oral if cardiac cath was planned. 3. Hypertension. We will utilize blood pressure for more diuresis. Continue spironolactone. Continue Lasix. Discontinue acetazolamide. 4. Alkalosis secondary to hypercapnic respiratory failure as a compensation superimposed with contraction secondary to the diuresis. We will continue Lasix drip. We will follow up. Discontinue acetazolamide. time spend discussing with patient exam the patient face to face , reviewing the data, placing order , discussing with other steamboat pilot including nursing staff , discussing with hospitalist and other strategy planning consultant 45 min SONU Voice ID: [id number] Report ID: [id number] GILES
[2021-04-23] MEDS: CALCITROL 0.25 MCG CAP PO SCH (14:41)
--- NOTE | 2021-04-23 15:03 | RAD REPORT ---
EXAM DESCRIPTION: US - Extrem Venous W Compress Vasu - 04/23/2021 2:11 pm CLINICAL HISTORY: lower extremity venous doppler right and leftleg pain and swelling COMPARISON: DVT study February 2016 TECHNIQUE: Real-time sonographic evaluation of the bilateral lower extremity common femoral, superfi cial femoral, popliteal and posterior tibial veins was performed. FINDINGS: Normal compressibility, flow augmentation, phasic flow and spontaneous flow are identified in the left and right lower extremity common femoral, superficial femoral, popliteal and posterior t ibial veins. No intraluminal filling defects seen. IMPRESSION: No DVT in either lower extremity.
--- NOTE | 2021-04-23 15:31 | RAD REPORT ---
EXAM DESCRIPTION: CT - Chest Abd Pelvis Wo Con - 04/23/2021 1:49 pm CLINICAL HISTORY: sepsis, dyspnea, weakness COMPARISON: Chest For Pe Angio dated 03/03/2019 TECHNIQUE: Axial 5 millimeter thick images of the chest, abdomen and pelvis were obtained without IV contrast. Oral contrast was administered. All CT scans are performed using dose optimization technique as appropriate and may include automated exposure control or mA/KV adjustment according to patient size. FINDINGS: Interstitial thickening is believed to be fibrotic change rather than interstitial infiltr ate. No consolidation or mass. Minimal atelectasis changes are present. No pleural effusion. No pneum othorax is present. No chest wall mass or abnormal axillary lymphadenopathy seen. Mediastinal and hi lar regions show no mass or lymphadenopathy. No significant cardiac finding. Aortic and Coronary art daniella calcifications are present. The liver, spleen and pancreas show no significant findings for non contrast imaging. Minimal cholel ithiasis present without acute gallbladder or biliary tree finding. No hydronephrosis or suspicious renal mass. Isodense masses and pyelonephritis cannot be excluded on non contrast imaging. No adrenal abnormalities. No urinary bladder abnormalities. Uterus and atroph ic ovaries show no suspicious findings. No acute gastric finding. No dilated large or small bowel. No active bowel process seen. There is div erticulosis present. Patient has a large 15 centimeter diameter left mid abdomen hernia. Neck of the hernia is 7 cm. Hernia contains multiple small bowel loops. No acute wall thickening or edema. There is a second smaller hernia defect just left of midline in the lower abdomen that contains a loop of s mall bowel also without acute component. No free air, free fluid or inflammatory stranding. No mass or bulky lymphadenopathy. No significant bone or vascular finding. Degenerative bony changes are present. IMPRESSION: CT chest shows interstitial thickening favored to be fibrosis rather than interstitial i nfiltrate. No focal consolidation to suspect bacterial pneumonia. No renal or bladder abnormality identifiable. Isodense masses and pyelonephritis are not excluded on a noncontrast study. A few small gallstones are present without active gallbladder process seen. No biliary dilatation. No acute GI or BASKET MACHINE OPERATOR process. Large left-side abdominal hernias contain multiple loops of small bowel but no acute component seen. CT abdomen and pelvis imaging shows no significant or suspicious finding.
[2021-04-23] MEDS: ENOXAPARIN 30 MG/0.3 ML SQ SCH (17:00)
--- NOTE | 2021-04-23 20:40 | PN ---
Subjective: The patient has no new complaints. Objective: Vital Signs: Blood pressure 140/89, pulse 63, temperature 97.2. Heart: Regular rate and rhythm. Chest: Clear to auscultation. Abdomen: Soft, benign. Neurological: Alert, oriented. Grossly intact. Laboratory Data: White cell count 13.7, hemoglobin 13.1, hematocrit 41.1, and platelets 111. Chemis try; CO2 down to 38, BUN 104, creatinine 2.17, GFR 22. Rest of her labs noted. Assessment And Plan: Renal failure, acute on chronic. The patient is on diuretic with IV Lasix and then now p.o. by Nephrology. The idea is to improve her kidney function, but it seems that Nephrolog y can ask Cardiology to address first her heart status with heart catheterization and being ready to do dialysis immediately after the procedure even if the kidney function does not improve to where the y could do it without the dialysis. With that in mind and discussion with the family, we will go ahe ad and wait until Cardiology gives us an input about doing heart catheterization followed by dialysis . Meanwhile, we will continue current diuresis and monitor electrolytes. The patient had a venous s tudy Doppler done that showed no deep vein thrombosis and had abdominal pelvic CT scan. No significa nt or suspicious findings. She had a large left sliding hiatal hernia. Look orders for details. MFS/MODL Voice ID: [id number] Report ID: [id number]
[2021-04-23] MEDS: AMITRIPTYLINE 25 MG TAB PO SCH (21:59)
[2021-04-23] MEDS: ATORVASTATIN 10 MG TAB PO SCH (21:59)
[2021-04-24] MEDS: ALBUMIN HUMAN 25% 12.5 GM, FUROSEMIDE 100 MG in NA CHLORIDE 0.9% 40 ML IV SCH ×2 (03:58→08:47)
[2021-04-24 04:13] LABS: Potassium 3.9 mmol/L (3.5-5.1)
[2021-04-24] MEDS: METOPROLOL XL 50 MG TAB PO SCH (06:52)
[2021-04-24] MEDS: DOCUSATE NA 100 MG CAP PO SCH (08:55)
[2021-04-24] MEDS: PANTOPRAZOLE 40MG TABLET PO SCH (08:55)
[2021-04-24] MEDS: SPIRONOLACTONE 25 MG TABLET PO SCH (08:55)
[2021-04-24] MEDS: POTASSIUM CL SA 10 MEQ TAB PO SCH (08:56)
[2021-04-24] MEDS: CEFTRIAXONE/SWI 1gm 1 GM/10 ML SYR IVP SCH (08:56)
[2021-04-24] MEDS: METHYLPREDNISOLONE 40 MG INJ IV SCH (08:56)
[2021-04-24] MEDS: FLUOXETINE 20 MG CAP PO SCH (08:56)
[2021-04-24] MEDS: CALCIUM CARBONATE 500 MG TAB PO SCH (08:56)
[2021-04-24] MEDS ORDERED: THIAMINE 200 MG/2 ML INJ IVP SCH (09:00)
[2021-04-24 12:16] VITALS: BP 144/73; TEMP 97.5
[2021-04-24 12:24] VITALS: O2SAT 97
--- NOTE | 2021-04-24 12:25 | PN ---
Subjective: The patient was admitted with acute kidney injury secondary to cardiorenal, over volume, toxic ATN secondary to UTI. The patient has been started on Lasix drip. The patient is diuresing very well, but still has shortness of breath. The patient supposed to have a possible cardiac cath, the holding was because of worsening kidney function. The patient being on Lasix drip. Kidney function the patient still has some shortness of breath. Yesterday, we decreased the steroid in the way to decrease the catabolic state as the patient had increase in her BUN. Physical Examination: Vital Signs: Blood pressure 125/58, pulse of 52, afebrile. The patient had good urine output. As weight plascencia, the patient lost 11 pounds from last visit. Chest: Decreased entry bilateral base. Heart: S1, S2. Systolic murmur. Abdomen: Soft, nontender. Extremity: Trace edema. Neurologic: Alert. No focality. Has no tremor. Laboratory Data: WBC 13.7, H and H 13.1/41.1. Sodium 143, potassium 3.9, bicarb 39, BUN 106, creatinine 2.1, calcium 9.2. TSH 0.3. Current Medications: The patient on include; 1. Ceftriaxone. 2. Lasix drip at 40 mg. 3. Calcium carbonate. 4. Spironolactone. 5. Metoprolol. 6. Amitriptyline. 7. Zofran. 8. Pantoprazole. 9. Solu-Medrol 40 b.i.d. 10. KCl. Assessment And Plan: 1. Acute kidney injury secondary to cardiorenal. According to the finding on the CT, it looked to me that the patient started being euvolemic. I am going to go ahead and switch the patient to Lasix orally and we will monitor the patient's response. We will monitor the patient. We had long discussion yesterday with the family regarding needing any cardiac cath weighing risks and benefits. Family agreed that if the patient needs cardiac cath, they will proceed with it even knowing with the risk of progression to acute kidney injury with needing dialysis. Waiting for Cardiology input. 2. Hypertension. We will keep utilizing blood pressure for more diuresis. 3. Urinary tract infection. Continue current antibiotic. 4. Coronary artery disease with congestive heart failure as above. 5. Interstitial fibrosis as by CT. Decreased prednisone. We will follow up with Pulmonary. 6. Alkalosis secondary to hypercapnic respiratory failure. Continue diuresis. time spend discussing with patient exam the patient face to face , reviewing the data, placing order , discussing with other prepared foods team leader including nursing staff , discussing with hospitalist and other technical solutions consultant 45 min SONU Voice ID: [id number] Report ID: [id number] GILES
[2021-04-24] MEDS ORDERED: FUROSEMIDE 40 MG TABLET PO SCH (17:00)
[2021-04-25] MEDS ORDERED: METHYLPREDNISOLONE 40 MG INJ IV SCH (09:00)
--- NOTE | 2021-05-04 02:10 | DS ---
Date of Discharge: 04/24/2021 History Of Present Illness: The patient is an 80-year-old female, who was admitted to the hospital b ecause of acute respiratory failure with hypoxia secondary to multiple factors including congestive h eart failure and COPD. She presented to the emergency room with gradual increase in shortness of claire ath. Past Medical History: As per admit note. Social History: As per admit note. Family History: As per admit note. Medications: As per admit note. Allergies: PER ADMIT NOTE. Physical Examination: As per admit note. Diagnostic Data: As per admit note. Hospital Course: The patient was admitted to the hospital. We will start her on beta-2 agonist yari thing treatments and put her on IV steroids, went ahead also and consider congestive heart failure, p ut on IV Lasix. The patient had bradycardia, for which we stopped her Tenormin medication. Mild evelin vation in her troponin. Cardiology to see the patient and the possibility of a non-[id number] myoc ardial infarction was considered. The patient has a history of chronic renal insufficiency, which sh owed acute worsening during this hospitalization. She was hypernatremic. We gave her D5 0.2 NS 500 cc and we corrected that inpatient, continued her although on IV Lasix for CHF, but also monitor the blood sugar fingersticks and put her on sliding scale and Nephrology were consulted for her kidney fa ilure. The patient had prolonged course where Cardiology have thought that the patient may need hear t catheterization. However, this was tender because the patient's kidney functions did not improve t o where they could do that and Nephrology have worked with us to improve her kidney function with inc reasing the dosage of Lasix IV, and then did not improve her kidney functions. She was also treated for urinary tract infection with IV Rocephin. Her electrolytes were monitored. The patient also had venous study on her lower extremities, showed no DVT. She had abdomen and chest CT showed no acute pathology. She has a large hiatal hernia and 4 small probable bladder stone without activity. At th is point with the patient needing dialysis and heart catheterization, and her blood pressure had to b e controlled, we thought the patient may benefit from procedural heart catheterization followed immed iately with dialysis. However, a prolonged course of management was considered as were long-term acu te facility was a more suitable facility for her for this to be done and [facility] was consulted and e was accepted, and the patient was transferred to [facility] long-term acute facility to continue her m anagement as delineated above. The patient was stable at the time of her transfer. Look orders for details. MFS/MODL Voice ID: [id number] Report ID: [id number]
== END 2021-04-24 14:04 | DRG 280 ==
LOC: ER 12:26 → ERHOLD 18:45 → 2ND 22:11 → OBSVTOIN 04-13 14:37
PROVIDERS: ADMIT Internal Medicine; ATTEND Internal Medicine
DX: I13.0 Hypertensive heart and chronic kidney disease with heart failure and stage 1 through stage 4 chronic kidney disease, or unspecified chronic kidney disease (principal); I21.4 Non-ST elevation (NSTEMI) myocardial infarction; I50.43 Acute on chronic combined systolic (congestive) and diastolic (congestive) heart failure; J96.92 Respiratory failure, unspecified with hypercapnia; N17.0 Acute kidney failure with tubular necrosis; J44.1 Chronic obstructive pulmonary disease with (acute) exacerbation; E87.0 Hyperosmolality and hypernatremia; N39.0 Urinary tract infection, site not specified; E87.1 Hypo-osmolality and hyponatremia; E87.3 Alkalosis; N18.32 Chronic kidney disease, stage 3b; K21.9 Gastro-esophageal reflux disease without esophagitis; E78.5 Hyperlipidemia, unspecified; M54.5 Low back pain; D63.8 Anemia in other chronic diseases classified elsewhere; Z79.899 Other long term (current) drug therapy; Z87.891 Personal history of nicotine dependence; Z99.81 Dependence on supplemental oxygen; Z20.822 Contact with and (suspected) exposure to COVID-19; E21.1 Secondary hyperparathyroidism, not elsewhere classified; I27.20 Pulmonary hypertension, unspecified; I48.91 Unspecified atrial fibrillation; I25.10 Atherosclerotic heart disease of native coronary artery without angina pectoris; E11.22 Type 2 diabetes mellitus with diabetic chronic kidney disease; K44.9 Diaphragmatic hernia without obstruction or gangrene
CPT/HCPCS: 36415; 51702; 71045; 71250; 74176; 76770; 80048; 80069; 80076; 81003; 81015; 82140; 82570; 82805; 83036; 83735; 83880; 83970; 84156; 84443; 84484; 85025; 85610; 87040; 87077; 87086; 87088; 87186; 93005; 93970; 94640; 96374; 96375; 97110; 97112; 97116; 97161; 97530; 99285; J0696; J1120; J1160; J1650; J1940; J2270; J2405; J2920; J3010; J3411; P9047; U0003